=== PATIENT | female | born 1955 | race Caucasian/White ===

== ENCOUNTER 2020-02-22 13:54 | Outpatient (REF) | payer MEDICARE, MEDICAID, SELFPAY ==
--- NOTE | 2020-02-22 16:09 | MHC.AU.P13 ---
Adult Audiological Evaluation Date of Visit: 02/22/20 Reason for Appointment: Audiological evaluation to monitor the status of Ms. Romero's longstanding hearing loss. She notes that her hearing seems to be worsening. She describes experiencing occasional transient ear noise. She denies any significant changes to her medical history but notes her arthritis is getting worse. Previous Hearing Test Results: [facility] [place],12/28/2018- mild to severe mixed hearing loss bilaterally, with the left ear hearing worse than the right. Medical History: Medical History: Dizziness or Unsteadiness, Headache Medical History: History of cleft palate/lip and ear infections Medication List: Reports she is taking a diuretic and the dosage was recently decreased. She regularly takes Zyrtec but her doctor recommended that she reduce how much she takes it in the winter. Notes that she uses eye drops for her glaucoma. Hearing Instrument History- Right Ear: Director Outcomes: [employer] Model: KruxE Serial Number: [id number] Battery Size: 312 Warranty: 07/14/2013 Dispensed By: [facility] Date of Fittin05/07/2011 Hearing Instrument History- Left Ear: Director Outcomes: [employer]ak Model: KruxE Serial Number: [id number] Battery Size: 312 Warranty: 07/14/2013 Dispensed By: [facility] Date of Fittin05/07/2011 Otoscopy: Right Ear: Non-occluding cerumen Left Ear: Unremarkable Tympanometry: Right Ear: Reduced Middle Ear Compliance (Type As) Left Ear: Normal Middle Ear System (Type A) Hearing Evaluation: Transducer(s) Used: Insert Earphones, Bone Conduction Method: Conventional Audiometry Stimuli Used: Pure Tones Right Ear: Description of Hearing: Normal hearing at 250 Hz, sloping to a mild to severe sensorineural hearing loss from 500-8000 Hz. Left Ear: Description of Hearing: Mild sloping to severe sensorineural hearing loss from 250-8000 Hz. Thresholds are 10-15 dBHL worse than the right ear from 250-1000 Hz. Speech Recognition Threshold (SRT): Method Used: Monitored Live Voice Stimuli Used: Spondee Words Right Ear: 40 dBHL Left Ear: 50 dBHL Word Discrimination: Method: Recorded Lists Word Lists Used: NU-6 Right Ear: 88% at 80 dBHL Left Ear: 88% at 80 dBHL Comparison: Compared to the most recent evaluation: Hearing is stable. Recommendations: Recommendations: Audiological re-evaluation in one year. See Hearing Aid Follow-Up note for more information. Diagnosis: Primary Diagnosis: H90.3 Bilateral Sensorineural Hearing Loss Services Performed: Services Performed: Comprehensive Audiological Evaluation (CPT 25618) Tympanometry (CPT 50322) Signature: Provider: Neil Brand, AUBREY-A
== END 2020-02-22 13:55 | disposition home or self-care (01) ==
LOC: HO.SH 13:54
PROVIDERS: Visit Provider Internal Medicine
DX: H90.3 Sensorineural hearing loss, bilateral (principal)
CPT/HCPCS: 92557; 92567; 92593; 99499; V5266

== ENCOUNTER 2020-05-15 13:55 | Outpatient (REF) | payer MEDICARE, MEDICAID, SELFPAY ==
[2020-05-15 15:41] LABS: Glucose Urine UA NEG (NEG); Leukocyte Esterase Urine 1+ (NEG); Nitrite Urine NEG (NEG); Specific Gravity - Urine 1.025 (1.005-1.025); UACC Culture Trigger YES; Urine Blood 1+ (NEG); Urine Ketones 5 MG/DL (NEG); Urine Protein NEG (NEG-TRACE)
[2020-05-15 15:48] LABS: Appearance Urine CLEAR; Color Urine YELLOW
[2020-05-15 17:03] LABS: Bacteria Urine 1+ /LPF; Mucus Urine 2+ /LPF; RBC Urine 0 /HPF (0); Renal Epithelial Cells Urine 2+ /LPF; Squamous Epithelial Cell Urine 2+ /LPF
== END 2020-05-15 13:56 | disposition home or self-care (01) ==
LOC: HO.LAB 13:55
PROVIDERS: PCP Internal Medicine; Visit Provider Internal Medicine
DX: R30.0 Dysuria (principal)
CPT/HCPCS: 81001; 81003; 87086

== ENCOUNTER 2020-05-30 09:11 | Outpatient (REF) | payer MEDICARE, MEDICAID, SELFPAY ==
[2020-05-30 10:03] LABS: MANUAL DIFF FLAG NO
[2020-05-30 10:13] LABS: Basophils Percent Auto 0.5 % (0-2); Eosinophils Absolute Auto 0.1 X10*3/uL (0.0-0.4); Eosinophils Percent Auto 2.1 % (0-4); Hematocrit 37.7 % (37-47); Hemoglobin 12.2 g/dl (12.0-16.0); Imm Gran Abs Auto 0.01 X10*3/uL (0.00-0.03); Imm Gran Pct Auto 0.2 % (0.0-0.4); Lymphocytes Absolute Auto 1.9 X10*3/uL (1.2-4.9); Lymphocytes Percent Auto 30.4 % (20-40); Mean Corpuscular HGB Conc 32.4 g/dl (31.0-35.0); Mean Corpuscular Hemoglobin 28.8 pg (27.0-33.0); Mean Corpuscular Volume 88.9 fL (80-98); Mean Platelet Volume 12.9 fL (9.4-12.3); Monocytes Absolute Auto 0.5 X10*3/uL (0.1-1.2); Monocytes Percent Auto 7.3 % (2-11); Neutrophils Absolute Auto 3.7 X10*3/uL (2.0-8.3); Neutrophils Percent Auto 59.5 % (45-73); Platelet Count 202 X10*3/uL (160-400); Red Blood Count 4.24 X10*6/uL (4.20-5.50); Red Cell Distribution Width 12.8 % (11.0-16.0); White Blood Count 6.3 X10*3/uL (4.8-10.8)
[2020-05-30 10:24] LABS: Alanine Aminotransferase 23 U/L (0-31); Albumin Level 4.1 g/dL (3.5-5.0); Alkaline Phosphatase 108 U/L (39-117); Anion Gap 10 (12-20); Aspartate Amino Transferase 28 U/L (5-31); Bilirubin Total 0.7 mg/dL (0.0-1.0); Blood Urea Nitrogen 19 mg/dL (9-16); Carbon Dioxide 33 mmol/L (22-29); Chloride 100 mmol/L (96-108); Cholesterol 187 mg/dL; Estimated Glomerular Filt Rate 55; Glucose Fasting 91 mg/dL (60-99); HDL Cholesterol 54 mg/dL; LDL Cholesterol Calculated 119 mg/dl; Sodium 139 mmol/L (135-145); Total Protein 6.9 g/dL (6.5-8.0); Triglycerides 71 mg/dL
[2020-05-30 10:47] LABS: Free T4 (Free Thyroxine) 1.08 ng/dL (0.71-1.85); Vitamin D 25-OH Total 28.2 ng/mL (>30)
== END 2020-05-30 09:12 | disposition home or self-care (01) ==
LOC: HO.LAB 09:11
PROVIDERS: PCP Internal Medicine; Visit Provider Internal Medicine
DX: I10 Essential (primary) hypertension (principal); E78.00 Pure hypercholesterolemia, unspecified; K57.90 Diverticulosis of intestine, part unspecified, without perforation or abscess without bleeding
CPT/HCPCS: 36415; 80053; 80061; 82306; 84439; 84443; 85025

== ENCOUNTER 2020-06-07 09:51 | Outpatient (REF) | payer MEDICARE, MEDICAID, SELFPAY ==
--- NOTE | ~2020-06-07 | MM_ITS ---
EXAMINATION: MM SCREENING DIGITAL BREAST TOMOSYNTHESIS, BILATERAL CLINICAL INFORMATION: Screening. Asymptomatic. Prior history reduction mammoplasty 2013. The lifetime risk of breast cancer based on the Tyrer-Cuzick Model is 7%. COMPARISON: Mammography: 01/11/2019, 01/07/2018, 01/02/2017, 06/24/2016, 11/07/2015 TECHNIQUE: Digital breast tomosynthesis is performed in both the craniocaudal and mediolateral oblique views along with computer-aided detection (CAD). Synthesized 2D images are generated from the tomosynthesis. FINDINGS: There are scattered areas of fibroglandular density (ACR BI-RADS breast composition Category b). There is minor scarring consistent with the prior reduction mammoplasty. There is incidental oil cyst with benign rim and coarse calcification again seen upper outer right breast and coarse benign calcification mid upper outer left breast. Some other benign round and rim calcifications are present near the skin. Neither breast shows significant mass or architectural abnormality or abnormal calcifications. The axilla are unremarkable. There are no significant changes from prior studies. MM/MM tomosynthesis screening BI IMPRESSION: No mammographic evidence of malignancy. Benign post surgical changes consistent with the prior history reduction mammoplasty. ASSESSMENT: BI-RADS 2: Benign RECOMMENDATION: Routine annual mammography screening. This patient's information was entered into a reminder system with a target due date for their next mammogram.
== END 2020-06-07 09:52 | disposition home or self-care (01) ==
LOC: HO.MAMMO 09:51
PROVIDERS: PCP Internal Medicine; Visit Provider Internal Medicine
DX: Z12.31 Encounter for screening mammogram for malignant neoplasm of breast (principal)
CPT/HCPCS: 77063; 77067

== ENCOUNTER 2020-09-07 11:06 | Outpatient (REF) | payer MEDICARE, MEDICAID, SELFPAY ==
[2020-09-07 12:32] LABS: Anion Gap 13 (12-20); Blood Urea Nitrogen 18 mg/dL (9-16); Calcium 9.4 mg/dL (8.4-10.2); Carbon Dioxide 30 mmol/L (22-29); Chloride 100 mmol/L (96-108); Estimated Glomerular Filt Rate 50; Glucose Random 87 mg/dL (60-115); Potassium 3.8 mmol/L (3.3-5.1); Sodium 139 mmol/L (135-145)
== END 2020-09-07 11:07 | disposition home or self-care (01) ==
LOC: HO.LAB 11:06
PROVIDERS: PCP Internal Medicine; Visit Provider Internal Medicine
DX: I10 Essential (primary) hypertension (principal)
CPT/HCPCS: 36415; 80048

== ENCOUNTER 2020-10-27 07:44 | Day surgery (SDC) | payer MEDICARE, MEDICAID, SELFPAY ==
[2020-10-23 15:58] VITALS: BMI 35.2
--- NOTE | 2020-10-26 09:59 | HO.ANESPROP2 ---
Documented by User: Clare Cat NP 10/26/20 10:01 HPI - Anesthesia Eval Consult details Narrative: 65yo F for Colonoscopy *Multiple allergies with facial swelling* PMFSH Past Medical History Medical History (Updated 10/27/20 @ 09:34 by Alana Vides MD) Anxiety Arthritis Glaucoma Heartburn Hiatal hernia Hx of cardiac murmur Hx of cleft palate with cleft lip Hx of hypoglycemia IBS (irritable bowel syndrome) Surgical History Surgical History H/O rhinoplasty History of esophagogastroduodenoscopy (EGD) Hx of bilateral breast reduction surgery Hx of cholecystectomy Hx of colonoscopy Social History Social History Alcohol intake: never Patient Tobacco Use Status: Never used Tobacco Use of substances other than those prescribed or required for medical reasons: No Are you DNR?: No Advance Directives: No Advance Directives Information Provided: No Advance Directives on File: No Meds Allergies Allergy/AdvReac Type Severity Reaction Status Date / Time apple [APPLE] Allergy Severe FACIAL Verified 10/23/20 15:51 SWELLING lisinopril [LISINOPRIL] Allergy Severe FACIAL Verified 10/23/20 15:50 SWELLING metoprolol [METOPROLOL] Allergy Severe FACIAL Verified 10/23/20 15:50 SWELLING, facial swelling with any bp med nut - unspecified [NUTS] Allergy Severe Facial Verified 10/23/20 15:51 Swelling pectin [PECTIN] Allergy Severe Facial Verified 10/23/20 15:50 Swelling triamterene [TRIAMTERENE] Allergy Severe FACIAL Verified 10/23/20 15:50 SWELLING DAIRY PRODUCTS Allergy Severe Facial Uncoded 10/23/20 15:50 Swelling Home Medications Medication Instructions Recorded Confirmed Last Taken Type alcaftadine 0.25 % eye drops 1 drp OPHTHALMIC (EYE) DAILY PRN 10/23/20 10/23/20 Unknown History (Lastacaft) cetirizine 10 mg capsule (Zyrtec) 10 mg PO DAILY PRN 10/23/20 10/23/20 Unknown History diphenhydramine HCl 25 mg capsule 25 mg PO Q6H PRN 10/23/20 10/23/20 Unknown History (Benadryl) hydrochlorothiazide 25 mg tablet 1 tab PO DAILY 10/23/20 10/23/20 10/27/20 History latanoprost 0.005 % eye drops 1 drp OPHTHALMIC (EYE) QPM 10/23/20 10/23/20 Unknown History Exam Exam Date and Time: October 26, 2020 0959 Height,Weight and Vital Signs: Height 5 ft Weight 81.647 kg Pertinent Lab Results Pertinent Lab Results: Laboratory Tests 05/30/20 09/07/20 09:40 11:20 WBC 6.3 Hgb 12.2 Hct 37.7 Plt Count 202 Sodium 139 Potassium 3.8 Chloride 100 Carbon Dioxide 30 H BUN 18 H Creatinine 1.11 Assessment and Plan Assessment Anesthesia Assessment: Chart Reviewed Documented by User: Alana Vides MD 10/27/20 09:40 PMFSH Active Problems Active Problems: ??PTSD Past Medical History Medical History (Updated 10/27/20 @ 09:34 by Alana Vides MD) Anxiety Arthritis Glaucoma Heartburn Hiatal hernia Hx of cardiac murmur Hx of cleft palate with cleft lip Hx of hypoglycemia IBS (irritable bowel syndrome) Family History Family history of problems with anesthesia: No Surgical History Surgical History H/O rhinoplasty History of esophagogastroduodenoscopy (EGD) Hx of bilateral breast reduction surgery Hx of cholecystectomy Hx of colonoscopy History of Problems with Anesthesia: Yes (Awareness under anesthesia aged 16) Social History Social History Alcohol intake: never Patient Tobacco Use Status: Never used Tobacco Use of substances other than those prescribed or required for medical reasons: No Are you DNR?: No Advance Directives: No Advance Directives Information Provided: No Advance Directives on File: No Meds Allergies Allergy/AdvReac Type Severity Reaction Status Date / Time apple [APPLE] Allergy Severe FACIAL Verified 10/23/20 15:51 SWELLING lisinopril [LISINOPRIL] Allergy Severe FACIAL Verified 10/23/20 15:50 SWELLING metoprolol [METOPROLOL] Allergy Severe FACIAL Verified 10/23/20 15:50 SWELLING, facial swelling with any bp med nut - unspecified [NUTS] Allergy Severe Facial Verified 10/23/20 15:51 Swelling pectin [PECTIN] Allergy Severe Facial Verified 10/23/20 15:50 Swelling triamterene [TRIAMTERENE] Allergy Severe FACIAL Verified 10/23/20 15:50 SWELLING DAIRY PRODUCTS Allergy Severe Facial Uncoded 10/23/20 15:50 Swelling Home Medications Medication Instructions Recorded Confirmed Last Taken Type alcaftadine 0.25 % eye drops 1 drp OPHTHALMIC (EYE) DAILY PRN 10/23/20 10/23/20 Unknown History (Lastacaft) cetirizine 10 mg capsule (Zyrtec) 10 mg PO DAILY PRN 10/23/20 10/23/20 Unknown History diphenhydramine HCl 25 mg capsule 25 mg PO Q6H PRN 10/23/20 10/23/20 Unknown History (Benadryl) hydrochlorothiazide 25 mg tablet 1 tab PO DAILY 10/23/20 10/23/20 10/27/20 History latanoprost 0.005 % eye drops 1 drp OPHTHALMIC (EYE) QPM 10/23/20 10/23/20 Unknown History Exam Height,Weight and Vital Signs: Height 5 ft Weight 81.647 kg Vital Signs Temp Pulse Resp BP Pulse Ox 10/27/20 08:53 97.3 F 64 18 172/89 H 98 Airway Mallampati Class: II TM Dist: >3cm Neck ROM: Full Heart: RRR ?murmur Lungs: CTAB Assessment and Plan Assessment Anesthesia Assessment: Anesthesia Plan Discussed Final Anesthetic Review Family History of Problems with Anesthesia: No History of Problems with Anesthesia: Yes (Awareness under anesthesia aged 16) NPO: Yes ASA Class: II Final Preanesthetic Review: No Changes in Pt Med Stat, Meds/Allgs Chart Reviewed, Consent Obtained/Reviewed and Anes Risks/Benef Reviewed Patient Risk: Low Procedure Risk: Low Assessment/Block/Sedation in SS: Assess/Block/Sedation-SS Anesthetic Plan Anesthetic Plan: MAC: Disposition: Standard PACU
[2020-10-27 08:53] VITALS: BP 172/89; PULSE 64; RESP 18; TEMP 36.3; O2SAT 98
[2020-10-27] MEDS: Lactated Ringers 1,000 ML 100 ML IVCONT (09:11)
--- NOTE | 2020-10-27 09:59 | P.BOP_ITS ---
Brief Operative Note Date of Service: 10/27/20 Pre-op diagnosis: Screening Post-op diagnosis: other (Colon polyp[) Procedure: Colonoscopy to the cecum and TI with biopsy and removal of polyp Surgeon: Scott Suazo Anesthesia: MAC Was an Shoes Salesperson used for this Procedure?: No Estimated blood loss (mL): 3.0 Pathology: other (A. Transverse colon polyp) Condition: stable Disposition: PACU
[2020-10-27 10:02] VITALS: BP 96/49; PULSE 59; RESP 16; TEMP 36.2; O2SAT 100
[2020-10-27 10:17] VITALS: BP 120/69; PULSE 73; RESP 16; O2SAT 98
--- NOTE | 2020-10-27 11:31 | OP_ITS ---
SURGEON: Scott Suazo MD INDICATIONS: The patient presents for evaluation of colorectal cancer screening. Full consent has been obtained from her for this, including risks of bleeding and perforation. PREOPERATIVE DIAGNOSIS: Colorectal cancer screening. POSTOPERATIVE DIAGNOSIS: PROCEDURE PERFORMED: Colonoscopy to cecum and terminal ileum with biopsy and removal of polyp. ESTIMATED BLOOD LOSS: COMPLICATIONS: ANESTHESIA: Monitored anesthesia care. ASSISTANTS: SPECIMENS: POSTOPERATIVE DIAGNOSES: Colorectal cancer screening, small colon polyp, diverticulosis, and internal hemorrhoids. DESCRIPTION OF PROCEDURE: The patient was placed in the left lateral decubitus position. The digital rectal exam revealed no abnormalities. The Olympus video pediatric colonoscope was entered into the rectum and advanced easily to the cecum. Once in the cecum, I did identify normal-appearing cecal pouch with appendiceal orifice and a normal-appearing ileocecal valve. The terminal ileum was cannulated and appeared normal. Scope was withdrawn back in the colon. The entire cecum and ileocecal valve appeared normal. The scope was slowly withdrawn assessing all mucosal surfaces carefully. Preparation was excellent. In the transverse colon, was a flat approximately 3 or 4 mm polyp, which was biopsied and completely removed with cold biopsy forceps. I did not visualize any other polyps, colitis, nor angiodysplasia. There was a mild amount of sigmoid diverticulosis. In the rectum, scope was retroflexed visualizing internal hemorrhoids, but no other pathology. The rectal mucosa appeared normal. The scope was straightened out and withdrawn from the patient. She tolerated the procedure well and was returned to the recovery area in stable condition. IMPRESSION: 1. Small colon polyp, status post biopsy and removal. 2. Diverticulosis. 3. Internal hemorrhoids. PLAN: The results of the biopsy will be checked. If this is a tubular adenoma, I would recommend a followup colonoscopy in 5 years. If it is only hyperplastic, I would recommend a followup colonoscopy in 10 years. She will otherwise see me on a p.r.n. basis. MD OBDULIO Askew/JOSEPH / [phone]
== END 2020-10-27 11:40 | disposition home or self-care (01) ==
PROVIDERS: PCP Internal Medicine; Visit Provider Internal Medicine
PROC: 0DJD8ZZ Inspection of Lower Intestinal Tract, Via Natural or Artificial Opening Endoscopic (ICD-10-PCS; CPT 45378; principal; 2020-10-27 09:00)
DX: Z12.11 Encounter for screening for malignant neoplasm of colon (principal); D12.3 Benign neoplasm of transverse colon; K57.30 Diverticulosis of large intestine without perforation or abscess without bleeding; K64.8 Other hemorrhoids
CPT/HCPCS: 45380; 88305

== ENCOUNTER 2020-12-08 16:00 | Emergency (ER) | payer MEDICARE, MEDICAID, SELFPAY ==
[2020-12-08 16:11] VITALS: BP 160/90; PULSE 98; O2SAT 98
[2020-12-08 16:42] VITALS: BP 129/99; PULSE 71; RESP 18; TEMP 36.7; O2SAT 96; BMI 33.0
--- NOTE | 2020-12-08 19:26 | ED.ALLEREA ---
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 She states she had cranberry juice or early this morning, and she immediately began to have lip swelling, mainly to the left hand side of the lips. She states that she took 50 mg of Benadryl at 10:00. And then she took 50 mg of Benadryl here at 17:00. She states that this happens to her frequently, however it is not getting better after Benadryl, which is not normal for her. She also mentions that she is had to have epinephrine for this before, so she was worried. She denies shortness of breath, trouble breathing, headache, nausea, vomiting, chest pain, fevers, chills, weakness. She has never had to be intubated for her allergic reactions MD complaint: allergic reaction Onset (ago): hour(s) (9) Exposure: other (Possibly cranberry juice) Known history of allergy to: Apples, and apple juice. Symptoms: lip swelling Severity: moderate Treatment prior to arrival: benadryl (50 mg this morning, 50 mg at 17:00.) Previous Allergic Reaction History: angioedema Related Data Home Medications Medication Instructions Recorded Confirmed alcaftadine 0.25 % eye drops 1 drp OPHTHALMIC (EYE) DAILY PRN 10/23/20 10/23/20 (Lastacaft) cetirizine 10 mg capsule (Zyrtec) 10 mg PO DAILY PRN 10/23/20 10/23/20 diphenhydramine HCl 25 mg capsule 25 mg PO Q6H PRN 10/23/20 10/23/20 (Benadryl) hydrochlorothiazide 25 mg tablet 1 tab PO DAILY 10/23/20 10/23/20 latanoprost 0.005 % eye drops 1 drp OPHTHALMIC (EYE) QPM 10/23/20 10/23/20 Previous Rx's Medication Instructions Recorded diphenhydramine HCl 25 mg tablet 50 mg PO TID PRN #10 tab 10/15/21 (Benadryl Allergy) famotidine 20 mg tablet (Pepcid) 20 mg PO BID #10 tab 12/08/20 prednisone 20 mg tablet 40 mg PO DAILY 5 Days #10 tab 12/08/20 Allergies Allergy/AdvReac Type Severity Reaction Status Date / Time apple [APPLE] Allergy Severe FACIAL Verified 12/08/20 16:42 SWELLING lisinopril [LISINOPRIL] Allergy Severe FACIAL Verified 12/08/20 16:42 SWELLING metoprolol [METOPROLOL] Allergy Severe FACIAL Verified 12/08/20 16:42 SWELLING, facial swelling with any bp med nut - unspecified [NUTS] Allergy Severe Facial Verified 12/08/20 16:42 Swelling pectin [PECTIN] Allergy Severe Facial Verified 12/08/20 16:42 Swelling triamterene [TRIAMTERENE] Allergy Severe FACIAL Verified 12/08/20 16:42 SWELLING DAIRY PRODUCTS Allergy Severe Facial Uncoded 10/23/20 15:50 Swelling Review of Systems Review of Systems: Constitutional : No Weight loss, No Fever, No Chills, No Night Sweats, No Fatigue, No Malaise ENT/Mouth : No Hearing loss, No Ear Pain, No Nasal Congestion, No Sinus Pain, No Hoarseness, No sore throat,+ lower left sided lip swelling, No Swallowing Difficulty Eyes: No Eye Pain, No Swelling Cardiovascular : No Chest Pain, No SOB, No Dyspnea on Exertion, No Orthopnea, No Edema, No Palpitations Respiratory : No Cough, No Sputum, No Wheezing, No Smoke Exposure, No Dyspnea Gastrointestinal : No Nausea, No Vomiting, No Diarrhea, No Constipation, No abdominal Pain, No Hematochezia, No Melena Genitourinary : no irregular bleeding, No Dysuria, No Urinary Frequency, No Hematuria, No Urinary Incontinence, No Urgency, No Flank Pain, No Urinary Flow Changes, No Hesitancy Musculoskeletal : No joint pain, No Myalgias, No Joint Swelling Skin : No Skin Lesions, No rash Neuro : No Weakness, No Numbness, No Dizziness, No Headache Yes all other systems are reviewed and are negative [facility] Past Medical History Attestation statement: The following information was validated with the patient. Medical History Anxiety Arthritis Glaucoma Heartburn Hiatal hernia Hx of cardiac murmur Hx of cleft palate with cleft lip Hx of hypoglycemia IBS (irritable bowel syndrome) Surgical History H/O rhinoplasty History of esophagogastroduodenoscopy (EGD) Hx of bilateral breast reduction surgery Hx of cholecystectomy Hx of colonoscopy Social History Social History Alcohol intake: never Patient Tobacco Use Status: Never used Tobacco Advance Directives: No Advance Directives Information Provided: Yes Patient : No Physical Exam Vital Signs: Vital Signs: Last Vital Signs Temp 98.1 F 12/08/20 16:42 Pulse 71 12/08/20 16:42 Resp 18 12/08/20 16:42 BP 129/99 H 12/08/20 16:42 Pulse Ox 96 12/08/20 16:42 Body Mass Index 33.0 vital signs have been reviewed as normal and appeared to be correct. Blood pressure normal. Heart rate normal. Respiration rate normal. Temperature normal. Oxygen saturation normal. Appearance: Alert. Oriented X3. No acute distress. Head: Normal external exam. Normocephalic. Eyes: PERRLA. EOMI. Conjunctiva and sclera normal. Eyelids normal. ENT: Pharynx normal. Uvula midline. Moist mucous membranes. No trismus noted. No drooling noted. No muffled voice noted. + swelling to left lower lip although tolerating secretions well. No stridor is noted. Neck: Normal inspection. Neck supple. FROM. No adenopathy. No meningeal signs. CVS: Normal heart rate and rhythm. Heart sound normal. No murmurs noted. Pulses normal throughout. Respiratory: No respiratory distress. Painless inspiration. Breath sounds normal. No wheezes/rales/rhonchi/ stridor noted. Chest nontender. No accessory muscle usage noted or decreased air movement noted. Abdomen: Soft and nontender. Nondistended. No guarding. No rigidity. Bowel sounds normal in all 4 quadrants. No distention noted. No organomegaly noted. No visible injury noted. No rebound tenderness. Negative Rovsing sign. Negative obturator's sign. Negative psoas sign. Negative Sheppard sign. Back: Full range of motion noted. Skin: Skin warm and dry. Normal skin color. Normal skin turgor. No rashes/lesions/lacerations noted. Extremities: Extremities exhibit normal range of motion. Extremities nontender. Neuro: Oriented X 3. No motor deficit. No sensory deficit. Reflexes normal. Normal steady gait. Course Course Course Narrative: 19:30pm 65-year-old female pmhx for cleft palate, hypertension and allergic to apple juice presents to the emergency department with an allergic reaction after drinking cranberry juice this morning. She took 50 mg of Benadryl this morning, and 50 mg of Benadryl at 17:00, with little to no relief. She has previous history of angioedema, requiring epinephrine. She has never required intubation. Upon physical examination patient is comfortably resting on the stretcher, able to speak in full sentences, controlling secretions well. Vital signs are stable, 96% on room air, not tachypneic, pulse of 71. Slightly hypertensive 129/99. Lungs are clear to auscultation no wheezing no adventitious lung sounds, no stridor, no accessory muscle use. There is swelling noted to the lower left-side of her lip. There is no facial swelling noted. These physical exam findings are not consistent with anaphylaxis. At this time the plan is to put patient on a insurance legal assistant, administered 25 mg of Benadryl, Solu-Medrol, Mag. And evaluate the patient promptly to see if she has improved. If not, will administer epinephrine. Reevaluation(s) Reevaluation #1: Upon re-evaluation swelling and is localized to the left lower lip. Patient is not nauseous, not vomiting. Vital signs are stable saturating well on room air. She is controlling secretions, speaking in full sentences in no acute respiratory distress. She is safe for discharge home. She has been educated to no longer try drinking cranberry juice, apple juice. She should follow up with her primary care provider, and think about getting allergy tested. She is safe for discharge home with PCP follow-up Time: 21:19 Critical Care Time Critical Care Time Critical Care Time: Yes Total Critical Care Time: 60 Attestation: I personally attest to this time spent taking care of the patient Discharge Plan Discharge Clinical Impression: Allergic reaction Qualifiers: Encounter type: initial encounter Qualified Code(s): T78.40XA - Allergy, unspecified, initial encounter Angioedema Qualifiers: Encounter type: initial encounter Qualified Code(s): T78.3XXA - Angioneurotic edema, initial encounter Patient Disposition: Home, Self-Care Instructions: Food Allergy (ED), Angioedema (ED), General Allergic Reaction (ED) Additional Instructions: Follow-up with your primary care Do not drink cranberry juice or apple juice Return to the emergency department new or worsening symptoms. Prescriptions: New famotidine [Pepcid] 20 mg tablet 20 mg PO BID Qty: 10 RF: 0 diphenhydramine HCl [Benadryl Allergy] 25 mg tablet 50 mg PO TID PRN (Reason: allergic reaction) Qty: 10 RF: 0 prednisone 20 mg tablet 40 mg PO DAILY 5 Days Qty: 10 RF: 0 No Action latanoprost 0.005 % drops 1 drp ophthalmic (eye) QPM RF: 0 diphenhydramine HCl [Benadryl] 25 mg Capsule 25 mg PO Q6H PRN (Reason: Allergy Symptoms) RF: 0 hydrochlorothiazide 25 mg tablet 1 tab PO DAILY RF: 0 Zyrtec 10 mg Capsule 10 mg PO DAILY PRN (Reason: Allergy Symptoms) RF: 0 Lastacaft 0.25 % Drops 1 drp OPHTHALMIC (EYE) DAILY PRN (Reason: Allergy Symptoms) RF: 0 Referrals: Physician,Unknown J [Primary Care Provider] - 2 days Print Language: Tamazight
[2020-12-08] MEDS: Magnesium Sulfate/H2O 2 GM/50 ML PIGGYBACK IV (19:43)
[2020-12-08] MEDS: Famotidine/PF 20 MG/2 ML VIAL IVPUSH (19:44)
[2020-12-08] MEDS: methylPREDNISolone Sod Succ 125 MG/2 ML VIAL IVPUSH (19:44)
[2020-12-08] MEDS: diphenhydrAMINE HCL 50 MG/ML VIAL 25 MG IVPUSH (19:44)
== END 2020-12-08 21:43 | disposition home or self-care (01) ==
PROVIDERS: Emergency Provider Emergency Medicine
DX: L23.6 Allergic contact dermatitis due to food in contact with the skin (principal); L27.2 Dermatitis due to ingested food; R13.10 Dysphagia, unspecified; T78.3XXA Angioneurotic edema, initial encounter; T78.1XXA Other adverse food reactions, not elsewhere classified, initial encounter; Z79.899 Other long term (current) drug therapy
CPT/HCPCS: 96365; 96366; 96375; 99283; 99291; J1200; J2930; J3475

== ENCOUNTER 2021-01-02 12:12 | Outpatient (REF) | payer MEDICARE, MEDICAID, SELFPAY ==
[2021-01-02 13:50] LABS: Anion Gap 14 (12-20); Blood Urea Nitrogen 20 mg/dL (9-16); Calcium 9.1 mg/dL (8.4-10.2); Carbon Dioxide 29 mmol/L (22-29); Chloride 99 mmol/L (96-108); Estimated Glomerular Filt Rate 53; Glucose Random 84 mg/dL (60-115); Potassium 3.7 mmol/L (3.3-5.1); Sodium 138 mmol/L (135-145)
[2021-01-02 14:13] LABS: Vitamin D 25-OH Total 31.4 ng/mL (>30)
== END 2021-01-02 12:13 | disposition home or self-care (01) ==
LOC: HO.LAB 12:12
PROVIDERS: PCP Internal Medicine; Visit Provider Internal Medicine
DX: I12.9 Hypertensive chronic kidney disease with stage 1 through stage 4 chronic kidney disease, or unspecified chronic kidney disease (principal); N18.9 Chronic kidney disease, unspecified; E55.9 Vitamin D deficiency, unspecified
CPT/HCPCS: 36415; 80048; 82306

== ENCOUNTER 2021-05-31 11:59 | Outpatient (REF) | payer MEDICARE, MEDICAID, SELFPAY ==
[2021-05-31 12:33] LABS: MANUAL DIFF FLAG NO
[2021-05-31 12:53] LABS: Basophils Percent Auto 0.5 % (0-2); Eosinophils Absolute Auto 0.2 X10*3/uL (0.0-0.4); Eosinophils Percent Auto 2.9 % (0-4); Hematocrit 36.6 % (37.0-47.0); Hemoglobin 12.3 g/dl (12.0-16.0); Imm Gran Abs Auto 0.01 X10*3/uL (0.00-0.03); Imm Gran Pct Auto 0.2 % (0.0-0.4); Lymphocytes Absolute Auto 1.7 X10*3/uL (1.2-4.9); Lymphocytes Percent Auto 26.2 % (20-40); Mean Corpuscular HGB Conc 33.6 g/dl (31.0-35.0); Mean Corpuscular Hemoglobin 30.3 pg (27.0-33.0); Mean Corpuscular Volume 90.1 fL (80.0-98.0); Mean Platelet Volume 12.6 fL (9.4-12.3); Monocytes Absolute Auto 0.5 X10*3/uL (0.1-1.2); Monocytes Percent Auto 7.4 % (2-11); Neutrophils Absolute Auto 4.1 x10*3/uL (2.0-8.3); Neutrophils Percent Auto 62.8 % (45-73); Platelet Count 202 X10*3/uL (160-400); Red Blood Count 4.06 X10*6/uL (4.20-5.50); Red Cell Distribution Width 12.8 % (11.0-16.0); White Blood Count 6.5 X10*3/uL (4.8-10.8)
[2021-05-31 13:17] LABS: Alanine Aminotransferase 53 U/L (0-31); Alkaline Phosphatase 145 U/L (39-117); Anion Gap 11 (12-20); Aspartate Amino Transferase 43 U/L (5-31); Bilirubin Total 0.6 mg/dL (0.0-1.0); Blood Urea Nitrogen 16 mg/dL (9-16); Calcium 9.3 mg/dL (8.4-10.2); Carbon Dioxide 29 mmol/L (22-29); Chloride 100 mmol/L (96-108); Estimated Glomerular Filt Rate 60; Glucose Random 88 mg/dL (60-115); Potassium 4.3 mmol/L (3.3-5.1); Sodium 136 mmol/L (135-145); Total Protein 6.7 g/dL (6.5-8.0)
[2021-05-31 13:39] LABS: Vitamin D 25-OH Total 34.4 ng/mL (>30)
== END 2021-05-31 12:00 | disposition home or self-care (01) ==
LOC: HO.LAB 11:59
PROVIDERS: PCP Internal Medicine; Visit Provider Internal Medicine
DX: E55.9 Vitamin D deficiency, unspecified (principal); I12.9 Hypertensive chronic kidney disease with stage 1 through stage 4 chronic kidney disease, or unspecified chronic kidney disease; N18.9 Chronic kidney disease, unspecified
CPT/HCPCS: 36415; 80053; 82306; 85025

== ENCOUNTER 2021-06-08 10:13 | Outpatient (REF) | payer MEDICARE, MEDICAID, SELFPAY ==
--- NOTE | ~2021-06-08 | MM_ITS ---
EXAMINATION: MM SCREENING DIGITAL BREAST TOMOSYNTHESIS, BILATERAL CLINICAL INFORMATION: Screening. Asymptomatic. Reduction mammoplasty, 2013. The lifetime risk of breast cancer based on the Tyrer-Cuzick Model is 8%. COMPARISON: Mammography: 06/07/2020, 01/11/2019, 01/07/2018 TECHNIQUE: Digital breast tomosynthesis is performed in both the craniocaudal and mediolateral oblique views along with computer-aided detection (CAD). Synthesized 2D images are generated from the tomosynthesis. Additional right CC view is provided. FINDINGS: There are scattered areas of fibroglandular density (ACR BI-RADS breast composition Category b). Breast tissue composition borders on predominantly fatty. There is minor background scarring from the reduction mammoplasty. Neither breast shows developing density or interval mass or abnormal calcifications. There is incidental oil cyst again seen anterior upper outer right breast. The axilla are unremarkable. MM/MM tomosynthesis screening BI IMPRESSION: No mammographic evidence of malignancy. ASSESSMENT: BI-RADS 2: Benign RECOMMENDATION: Routine annual mammography screening. This patient's information was entered into a reminder system with a target due date for their next mammogram.
== END 2021-06-08 10:14 | disposition home or self-care (01) ==
LOC: HO.MAMMO 10:13
PROVIDERS: Visit Provider Internal Medicine
DX: Z12.31 Encounter for screening mammogram for malignant neoplasm of breast (principal)
CPT/HCPCS: 77063; 77067

== ENCOUNTER 2021-06-28 10:45 | Outpatient (REF) | payer MEDICARE, MEDICAID, SELFPAY ==
--- NOTE | 2021-06-28 16:31 | MHC.AU.MED ---
Medical Clearance for Hearing Instrumentation Date: 06/28/21 Patient Name: Ludivina Romero Date of : 1955 Primary Care Provider: Referring Provider: Levi Manning MD We have seen your patient on 06/28/21 and have determined that they are a candidate for amplification (See accompanying report). Specifically, they would benefit from: Hearing aid use in both ears There is a statute that addresses Medical Evaluation Requirements prior to fitting a patient with a hearing aid. According to [place] statute 265 CMR:6.03(1), (a) General. Except as provided in 265 CMR 6.03(1)(b), a hearing stenographer shall not sell a hearing aid unless the prospective user has presented to the hearing stenographer a written statement signed by a licensed physician that states that the patient's hearing loss has been medically evaluated and the patient may be considered a candidate for a hearing aid. The medical evaluation must have taken place within the preceding six months. Please note: Due to the [place] Statute referenced above, we cannot accept a signature other than that of a licensed physician. BOOKSTORE MANAGER and PA signatures cannot be accepted. I am in agreement with the above recommendation. There is no medical contraindication for hearing instrumentation. Physician Signature Date Physician Name (Printed)
--- NOTE | 2021-07-02 09:56 | MHC.AU.AHA ---
Adult Audiological Evaluation Date of Visit: 06/28/[address] Reporter Used: Not Applicable Reason for Appointment: Audiologic re-evaluation due to question of change in hearing ability. Ludivina has a long-standing history of bilateral hearing loss and reports she has not been wearing the hearing aids regularly since she has difficulty wearing with the face masks and she is afraid of losing the aids. Previous Hearing Test Results: 02/22/2020 [facility] Asymmetric borderline normal to mild sensorineural hearing loss at 250-1000 Hz with the left ear being poorer than the right, sloping to a severe high frequency sensorineural hearing loss bilaterally. Speech understanding at 80 dB HL was 88% for both ears. Medical History: Medical History: Dizziness or Unsteadiness, Headache, High Blood Pressure, History of cleft palate/lip and ear infections Allergies: Lisinopril, Metoprolol, Triamterene, Apple, Nuts, Dairy Medication List: Famotidine, Hydrochloriazide, Prednisone, Alcaftadine and Latanoprost eye drops. Zyrtec and Benedryl as needed Hearing Instrument History- Right Ear: Inspector Of Dredging: Seedfuse Model: BevalleyE Serial Number: [id number] Battery Size: 312 Repair Warranty: Dispensed By: [facility] Date of Fittin05/07/2011 Hearing Instrument History- Left Ear: Inspector Of Dredging: Seedfuse Model: BevalleyE Serial Number: [id number] Battery Size: 312 Warranty: Dispensed By: [facility] Date of Fittin05/07/2011 Otoscopy: Right Ear: Unremarkable Left Ear: Unremarkable Tympanometry: Tympanometry performed due to: To assess integrity of the middle ear system Right Ear: Normal Middle Ear System (Type A) Left Ear: Normal Middle Ear System (Type A) Hearing Evaluation: Transducer(s) Used: Insert Earphones Bone Conduction Method: Conventional Audiometry Stimuli Used: Pure Tones Right Ear: Description of Hearing: Borderline normal threshold at 250 Hz, sloping to a severe sensorineural hearing loss 500-8000 Hz Left Ear: Description of Hearing: Mild sloping to severe sensorineural hearing loss. Speech Recognition Threshold (SRT): Method Used: Monitored Live Voice Stimuli Used: Spondee Words Right Ear: 35 dB HL Left Ear: 45 dB HL Word Discrimination: Method: Recorded Lists Word Lists Used: NU-6 Right Ear: 72% at 75 dB HL Left Ear: 48% at 80 dB HL 68% at 85 dB HL Most Comfortable Level (MCL): Right Ear: 75 dB HL Left Ear: 80 dB HL Comparison: Compared to most recent evaluation: Overall hearing thresholds are stable for both ears; however, speech discrimination ability has decreased significantly for both ears. Interpretation of Results: The decreased speech understanding ability is likely related to the lack of auditory stimulation since Ludivina has not been using her hearing aids. New binaural ej-hol-rjqwn hearing aids are recommended to help reduce the chance the hearing aids will become tangled with her glasses and face mask. Recommendations: Trial with new custom [id number] hearing aids is recommended. Medical clearance from a physician is required before fitting. Hearing Aid Fitting will be scheduled when all materials arrive. Audiological re-evaluation in one year. Will send a reminder card. Diagnosis: Primary Diagnosis: H90.3 Bilateral Sensorineural Hearing Loss Services Performed: Comprehensive Audiological Evaluation (CPT 66442) Tympanometry (CPT 38348) Signature: Provider: Neil Burrell, [facility]
--- NOTE | 2021-07-04 13:54 | MHC.AU.HAS ---
Hearing Aid Evaluation Date of Visit: 06/28/21 Historical Information: Description of Hearing: Borderline normal/mild, sloping to severe sensorineural hearing loss, left ear poorer than right Current personal amplification information, if applicable: Binaural 2011 Phonak [place] micro BTE Summary: Patient's speech discrimination has significant decreased as patient is not wearing hearing aids because of difficulties with aids falling out of ears when removing face masks. Current aids are 10 years old and patient needs in-the-ear custom hearing aids to help patient wear aids consistently Hearing Aid Prescription: Based on the individual?s shared listening needs, communication environments, dexterity, desire for connectivity, and personal preferences, the following prescription for amplification has been made: Right ear: Coiler Operator:Cerapedics Model: Intellecapv AI 1600 ITC-312 Battery Size: 312 Color: [place] Left ear:Left ear prescription to be same as Right Hearing Aid above: Coiler Operator: Cerapedics Model: Evolv AI 1600 itc-312 Battery Size: 312 Color: [place] Action Taken/Action Needed: Earmold Impressions Taken Medical Clearance to be requested from PCP/ENT Will order aids when medical clearance is received Primary Diagnosis: H90.3 Bilateral Sensorineural Hearing Loss Signature:Provider: Neil Burrell, CCC-A
== END 2021-06-28 10:46 | disposition home or self-care (01) ==
LOC: HO.SH 10:45
PROVIDERS: Visit Provider Internal Medicine
DX: Z01.118 Encounter for examination of ears and hearing with other abnormal findings (principal); H90.3 Sensorineural hearing loss, bilateral
CPT/HCPCS: 92557; 92567; 92591; V5275

== ENCOUNTER 2021-07-18 11:32 | Outpatient (REF) | payer MEDICARE, MEDICAID, SELFPAY ==
[2021-07-18 13:41] LABS: Alanine Aminotransferase 22 U/L (0-31); Albumin Level 4.1 g/dL (3.5-5.0); Alkaline Phosphatase 112 U/L (39-117); Anion Gap 12 (12-20); Aspartate Amino Transferase 26 U/L (5-31); Bilirubin Total 0.5 mg/dL (0.0-1.0); Blood Urea Nitrogen 18 mg/dL (9-16); Calcium 9.7 mg/dL (8.4-10.2); Carbon Dioxide 29 mmol/L (22-29); Chloride 97 mmol/L (96-108); Estimated Glomerular Filt Rate 48; Glucose Random 113 mg/dL (60-115); Potassium 3.2 mmol/L (3.3-5.1); Sodium 135 mmol/L (135-145); Total Protein 7.1 g/dL (6.5-8.0)
== END 2021-07-18 11:33 | disposition home or self-care (01) ==
LOC: HO.10HDL 11:32
PROVIDERS: Visit Provider Internal Medicine
DX: I10 Essential (primary) hypertension (principal); R79.89 Other specified abnormal findings of blood chemistry
CPT/HCPCS: 36415; 80053

== ENCOUNTER 2021-08-09 10:14 | Outpatient (REF) | payer MEDICARE, MEDICAID, SELFPAY | END 2021-08-09 10:15 | disposition home or self-care (01) | LOC: HO.HAP 10:14 | PROVIDERS: Visit Provider Internal Medicine | DX: Z46.1 Encounter for fitting and adjustment of hearing aid (principal); H90.3 Sensorineural hearing loss, bilateral | CPT/HCPCS: V5011; V5020; V5160; V5259; V5266 ==

== ENCOUNTER 2021-08-24 11:30 | Outpatient (REF) | payer MEDICARE, MEDICAID, SELFPAY | END 2021-08-24 11:31 | disposition home or self-care (01) | LOC: HO.HAP 11:30 | PROVIDERS: Visit Provider Internal Medicine | DX: Z13.89 Encounter for screening for other disorder (principal) ==

== ENCOUNTER 2021-10-18 12:49 | Outpatient (REF) | payer MEDICARE, MEDICAID, SELFPAY ==
[2021-10-18 13:49] LABS: MANUAL DIFF FLAG NO
[2021-10-18 13:53] LABS: Basophils Percent Auto 0.5 % (0-2); Eosinophils Absolute Auto 0.3 X10*3/uL (0.0-0.4); Eosinophils Percent Auto 3.7 % (0-4); Hematocrit 36.4 % (37.0-47.0); Hemoglobin 12.3 g/dl (12.0-16.0); Imm Gran Abs Auto 0.02 X10*3/uL (0.00-0.03); Imm Gran Pct Auto 0.3 % (0.0-0.4); Lymphocytes Absolute Auto 2.2 X10*3/uL (1.2-4.9); Mean Corpuscular HGB Conc 33.8 g/dl (31.0-35.0); Mean Corpuscular Volume 88.8 fL (80.0-98.0); Mean Platelet Volume 12.6 fL (9.4-12.3); Monocytes Absolute Auto 0.6 X10*3/uL (0.1-1.2); Monocytes Percent Auto 7.4 % (2-11); Neutrophils Absolute Auto 4.4 x10*3/uL (2.0-8.3); Neutrophils Percent Auto 59.1 % (45-73); Platelet Count 213 X10*3/uL (160-400); White Blood Count 7.5 X10*3/uL (4.8-10.8)
[2021-10-18 14:15] LABS: Alanine Aminotransferase 29 U/L (0-31); Alkaline Phosphatase 122 U/L (39-117); Anion Gap 12 (12-20); Aspartate Amino Transferase 33 U/L (5-31); Bilirubin Total 0.4 mg/dL (0.0-1.0); Blood Urea Nitrogen 18 mg/dL (9-16); Calcium 9.5 mg/dL (8.4-10.2); Carbon Dioxide 32 mmol/L (22-29); Chloride 97 mmol/L (96-108); Estimated Glomerular Filt Rate 47; Glucose Fasting 91 mg/dL (60-99); Potassium 3.6 mmol/L (3.3-5.1); Sodium 137 mmol/L (135-145); Total Protein 6.9 g/dL (6.5-8.0)
== END 2021-10-18 12:50 | disposition home or self-care (01) ==
LOC: HO.10HDL 12:49
PROVIDERS: Visit Provider Internal Medicine
DX: I12.9 Hypertensive chronic kidney disease with stage 1 through stage 4 chronic kidney disease, or unspecified chronic kidney disease (principal); N18.9 Chronic kidney disease, unspecified; K21.9 Gastro-esophageal reflux disease without esophagitis
CPT/HCPCS: 36415; 80053; 85025

== ENCOUNTER 2021-11-21 03:24 | Emergency (ER) | payer MEDICARE, MEDICAID, SELFPAY ==
[2021-11-21 03:33] VITALS: BP 146/101; PULSE 65; RESP 19; TEMP 37.1; O2SAT 98; BMI 33.6
[2021-11-21 05:46] VITALS: BP 162/85; PULSE 66; RESP 17; TEMP 36; O2SAT 98
--- NOTE | 2021-11-21 06:37 | PC.NURSE ---
Patient with unchanged lower lip/jaw swelling since presenting to the ED over three hours ago. Cut to inner lower lip also unchanged. She is managing secretions, breathing with ease, and states she feels overall better. No throat swelling or redness noted at this time. O2 saturations consistently >95% on room air. Patient states I think I got some vinegar in the cut and that's why it became swollen. Voice unchanged (baseline for patient being partly deaf per patient).
--- NOTE | 2021-11-21 08:08 | ED_ITS ---
HPI - Dental/Oral General Chief complaint: Dental/Oral Stated complaint: allergic rx Time Seen by Provider: 11/21/21 08:06 Source: patient Mode of arrival: ambulatory Limitations: no limitations History of Present Illness HPI Narrative: 66 yo female with hx of frequent food allergies resulting in lip swelling presents with lower lip swelling starting after dinner last nigh. States it started after eating a tuna sandwhich took 25mg benadryl prior to bed. Another 50mg benadryl around 3/4am as she thought her lip was worsening but now while waiting in our triage her lip is improving. No breathing issues and otherwise feels fine. Onset (ago): hour(s) (12) Duration: other (improving) Severity: mild Relieving factors: other (benadryl) Exacerbating factors: other (after biting lip) Context: other (hx of allergic reactions) Associated symptoms: other (lip swelling) Treatment prior to arrival: other (benadryl) Related Data Home Medications Medication Instructions Recorded Confirmed alcaftadine 0.25 % eye drops 1 drp ophthalmic (eye) DAILY PRN 10/23/20 10/23/20 (Lastacaft) Allergy Symptoms cetirizine 10 mg capsule (Zyrtec) 10 mg PO DAILY PRN Allergy Symptoms 10/23/20 10/23/20 diphenhydramine HCl 25 mg capsule 25 mg PO Q6H PRN Allergy Symptoms 10/23/20 10/23/20 (Benadryl) hydrochlorothiazide 25 mg tablet 1 tab PO DAILY 10/23/20 10/23/20 latanoprost 0.005 % eye drops 1 drp ophthalmic (eye) QPM 10/23/20 10/23/20 Previous Rx's Medication Instructions Recorded diphenhydramine HCl 25 mg tablet 50 mg PO TID PRN allergic reaction 12/08/20 (Benadryl Allergy) #10 tabs famotidine 20 mg tablet (Pepcid) 20 mg PO BID rash #10 tabs 12/08/20 prednisone 20 mg tablet 40 mg PO DAILY rash 5 days #10 tabs 12/08/20 Allergies Allergy/AdvReac Type Severity Reaction Status Date / Time apple [APPLE] Allergy Severe FACIAL Verified 12/08/20 16:42 SWELLING lisinopril [LISINOPRIL] Allergy Severe FACIAL Verified 12/08/20 16:42 SWELLING metoprolol [METOPROLOL] Allergy Severe FACIAL Verified 12/08/20 16:42 SWELLING, facial swelling with any bp med nut - unspecified [NUTS] Allergy Severe Facial Verified 12/08/20 16:42 Swelling pectin [PECTIN] Allergy Severe Facial Verified 12/08/20 16:42 Swelling triamterene [TRIAMTERENE] Allergy Severe FACIAL Verified 12/08/20 16:42 SWELLING DAIRY PRODUCTS Allergy Severe Facial Uncoded 10/23/20 15:50 Swelling Review of Systems Review of Systems: Constitutional : No Fever, No Chills ENT/Mouth : positive oral swelling, No Hoarseness, No Swallowing Difficulty Eyes: No Eye Pain, No Swelling, No Redness Cardiovascular : No Chest Pain, No SOB Respiratory : No Cough, No Sputum, No Wheezing, No Smoke Exposure, No Dyspnea Gastrointestinal : No Nausea, No Vomiting, No Diarrhea, No abdominal Pain Genitourinary : No Dysuria, No Urinary Frequency, No Hematuria Musculoskeletal : No joint pain, No Myalgias, No Joint Swelling Skin : No Skin Lesions, no rash Neuro : No Weakness, No Numbness, No Headache Psych : No Anxiety/Panic, No Depression Heme/Lymph: No Bruising, No Lymphadenopathy Endocrine : No Polyuria, No Polydipsia All other systems reviewed and are negative [facility] Past Medical History Attestation statement: The following information was validated with the patient. Medical History Anxiety Arthritis Glaucoma Heartburn Hiatal hernia Hx of cardiac murmur Hx of cleft palate with cleft lip Hx of hypoglycemia IBS (irritable bowel syndrome) Surgical History H/O rhinoplasty History of esophagogastroduodenoscopy (EGD) Hx of bilateral breast reduction surgery Hx of cholecystectomy Hx of colonoscopy Social History Social History Alcohol intake: never Patient Tobacco Use Status: Never used Tobacco Advance Directives: No Advance Directives Information Provided: Yes Physical Exam Vital Signs: Vital Signs: Last Vital Signs Temp 96.8 F 11/21/21 05:46 Pulse 66 11/21/21 05:46 Resp 17 11/21/21 05:46 BP 162/85 H 11/21/21 05:46 Pulse Ox 98 11/21/21 05:46 O2 Del Method 11/21/21 05:46 BMI result Body Mass Index 33.6 Appearance: Alert. Oriented X3. No acute distress. Eyes: Pupils equal, round and reactive to light. ENT: Pharynx normal. no intra oral swelling has moderate swelling to lower lip diffusely and contusion but no puncture to left lower lip Neck: Normal inspection. Neck supple. CVS: Normal heart rate and rhythm. Pulses normal. Respiratory: No respiratory distress. Breath sounds normal. Abdomen: Soft and nontender. Skin: Skin warm and dry. Normal skin color. Normal skin turgor. Extremities: No lower extremity edema. No calf ttp Neuro: Oriented X 3. No motor deficit. No sensory deficit. Course Course Course Narrative: feels better stable for DC MDM - Dental/Oral MDM Narrative Medical decision making narrative: 66 yo female with hx of prior allergic reactons improving lower lip swelling - no resp difficulties after treating her symptoms at home with benadryl. She is not on SNEHAL-i. At this time will give dexamethasone and observe. Discharge Plan Discharge Clinical Impression: Allergic angioedema Qualifiers: Encounter type: initial encounter Qualified Code(s): T78.3XXA - Angioneurotic edema, initial encounter Patient Disposition: Home, Self-Care Instructions: Angioedema (ED) Additional Instructions: return to ED for any worsening symptoms or concerns can take benadryl 25 to 50mg next dose 10am then next dose at 4pm if needed for allergy symptoms. Prescriptions: No Action latanoprost 0.005 % drops 1 drp ophthalmic (eye) QPM diphenhydramine HCl [Benadryl] 25 mg Capsule 25 mg PO Q6H PRN (Reason: Allergy Symptoms) hydrochlorothiazide 25 mg tablet 1 tab PO DAILY Zyrtec 10 mg Capsule 10 mg PO DAILY PRN (Reason: Allergy Symptoms) Lastacaft 0.25 % Drops 1 drp OPHTHALMIC (EYE) DAILY PRN (Reason: Allergy Symptoms) famotidine [Pepcid] 20 mg tablet 20 mg PO BID Qty: 10 0RF diphenhydramine HCl [Benadryl Allergy] 25 mg tablet 50 mg PO TID PRN (Reason: allergic reaction) Qty: 10 0RF prednisone 20 mg tablet 40 mg PO DAILY 5 Days Qty: 10 0RF
[2021-11-21] MEDS: dexAMETHasone sod phosphate 10 MG/ML VIAL PO (08:43)
== END 2021-11-21 09:59 | disposition home or self-care (01) ==
PROVIDERS: Emergency Provider Emergency Medicine; PCP Internal Medicine
DX: T78.1XXA Other adverse food reactions, not elsewhere classified, initial encounter (principal); T78.3XXA Angioneurotic edema, initial encounter; X58.XXXA Exposure to other specified factors, initial encounter
CPT/HCPCS: 99283; J1100

== ENCOUNTER 2021-11-26 11:22 | Outpatient (REF) | payer MEDICARE, MEDICAID, SELFPAY ==
--- NOTE | 2021-11-26 13:01 | MHC.AU.HFA ---
Hearing Instrument Fitting- Adult- Binaural Date of Visit: 11/26/21 Hearing Instruments Dispensed: Right Ear: Hogshead Hooper: [employer] Model: Evolv AI 1600 [facility] Serial Number: [id number] Repair Warranty: 10/21/2024 Loss and Damage Warranty: Service Plan: 11/26/2022 Battery Size: 312 Color: [place] Type of Wax Guard: HearClear Left Ear: Hogshead Hooper: [employer] Model: Evolv AI 1600 [facility] Serial Number: [id number] Repair Warranty: 08/21/2024 Loss and Damage Warranty: 10/21/2024 Service Plan: 11/26/2022 Battery Size: 312 Color: [place] Type of Wax Guard: HearClear Summary of Fitting: Patient fit with new hearing aids as [employer] was not able to change the original aids fit 08/09/2021 as was needed for the patient. Patient did not arrive at the proper time, but I did not reschedule her as I felt it was necessary to fit the aids as we have had the aids for over 2 months waiting to fit them. Ran feedback test. Patient did not want any programming changes made as the aids are fitting much better than the original and the sound quality seems good while in office. Real Ear was NOT performed at today's appointment. Reviewed insertion and practiced battery change. Provided a magnet as patient was having difficulty with removal and insertion of the battery. Dispensed 42 batteries today. Advised patient to call me SOON POSSIBLE if she is having ANY difficulties with the hearing aid. If no problems, she will schedule appointment as needed and a re-evaluation card is in the system. Recommendations: Hearing instrument care and maintenance were discussed and practiced. See handouts for care/use instructions and battery information. Patient does not feel follow-up is necessary at this time. Diagnosis Code(s): Primary Diagnosis: H90.3 Bilateral Sensorineural Hearing Loss Services Performed: Number of Individual Battery Cells: 42 Aids already billed 08/09/2021 Signature:Provider: Eddi Burrell, [facility]
== END 2021-11-26 11:23 | disposition home or self-care (01) ==
LOC: HO.HAP 11:22
PROVIDERS: Visit Provider Internal Medicine
DX: Z46.1 Encounter for fitting and adjustment of hearing aid (principal); H90.3 Sensorineural hearing loss, bilateral
CPT/HCPCS: V5266

== ENCOUNTER 2021-12-04 15:52 | Outpatient (REF) | payer MEDICARE, MEDICAID, SELFPAY ==
[2021-12-04 16:45] LABS: Influenza A PCR NEGATIVE (Negative); Influenza B PCR NEGATIVE (Negative); Resp Syncy Virus RNA Qual PCR NEGATIVE (Negative); SARS COV2 PCR INHOUSE POSITIVE (Negative)
== END 2021-12-04 15:53 | disposition home or self-care (01) ==
LOC: HO.LNP 15:52
PROVIDERS: Visit Provider Internal Medicine
DX: Z20.822 Contact with and (suspected) exposure to COVID-19 (principal)
CPT/HCPCS: 0241U; C9803

== ENCOUNTER 2022-05-14 16:40 | Emergency (ER) | payer MEDICARE, MEDICAID, SELFPAY ==
[2022-05-14 16:46] VITALS: BP 140/89; PULSE 71; RESP 16; TEMP 36.6; O2SAT 95; BMI 34.0
--- NOTE | 2022-05-14 16:50 | ED.ALLEREA ---
HPI - Allergic Reaction General Chief complaint: Allergic Reaction <CATRACHO Petersen - Last Filed: 05/14/22 17:08> Stated complaint: Lower lip swelling <CATRACHO Petersen - Last Filed: 05/14/22 17:08> Time Seen by Provider: 05/14/22 17:54 <CATRACHO Petersen - Last Filed: 05/14/22 17:08> Source: patient <Radha Crowe NP - Last Filed: 05/14/22 23:51> Mode of arrival: ambulatory <Radha Crowe NP - Last Filed: 05/14/22 23:51> Limitations: no limitations <Radha Crowe NP - Last Filed: 05/14/22 23:51> History of Present Illness HPI narrative: 67-year-old female presents with lower lip swelling that occurred today, had oral surgery molar extraction yesterday. Patient does have a history of angioedema. <Radha Crowe NP - Last Filed: 05/14/22 23:51> MD complaint: allergic reaction and other (Angioedema) <Radha Crowe NP - Last Filed: 05/14/22 23:51> Onset (ago): day(s) (1) <Radha Crowe NP - Last Filed: 05/14/22 23:51> Exposure: unknown <Radha Crowe NP - Last Filed: 05/14/22 23:51> Symptoms: lip swelling <Radha Crowe NP - Last Filed: 05/14/22 23:51> Severity: moderate <Radha Crowe NP - Last Filed: 05/14/22 23:51> Treatment prior to arrival: none <Radha Crowe NP - Last Filed: 05/14/22 23:51> Previous Allergic Reaction History: prior ED visit(s) and angioedema <Radha Crowe NP - Last Filed: 05/14/22 23:51> Related Data Home medications: Home Medications Medication Instructions Recorded Confirmed cetirizine 10 mg capsule (Zyrtec) 10 mg PO DAILY PRN Allergy Symptoms 10/23/20 05/14/22 hydrochlorothiazide 25 mg tablet 1 tab PO DAILY 10/23/20 05/14/22 latanoprost 0.005 % eye drops 1 drp ophthalmic (eye) BEDTIME 10/23/20 05/14/22 Previous Rx's Medication Instructions Recorded diphenhydramine HCl 25 mg capsule 50 mg PO TID PRN angioedema 3 days 05/14/22 (Benadryl) #30 caps famotidine 20 mg tablet 20 mg PO BID 7 days #14 tabs 05/14/22 potassium chloride 20 mEq 40 meq PO ONCE 1 day #2 tabs 05/14/22 tablet,extended release(part/cryst) (Klor-Con M) prednisone 20 mg tablet 40 mg PO DAILY 7 days #14 tabs 05/14/22 <CATRACHO Petersen - Last Filed: 05/14/22 17:08> Allergies/adverse reactions: Allergies Allergy/AdvReac Type Severity Reaction Status Date / Time apple [APPLE] Allergy Severe FACIAL Verified 12/08/20 16:42 SWELLING lisinopril [LISINOPRIL] Allergy Severe FACIAL Verified 12/08/20 16:42 SWELLING metoprolol [METOPROLOL] Allergy Severe FACIAL Verified 12/08/20 16:42 SWELLING, facial swelling with any bp med nut - unspecified [NUTS] Allergy Severe Facial Verified 12/08/20 16:42 Swelling pectin [PECTIN] Allergy Severe Facial Verified 12/08/20 16:42 Swelling triamterene [TRIAMTERENE] Allergy Severe FACIAL Verified 12/08/20 16:42 SWELLING DAIRY PRODUCTS Allergy Severe Facial Uncoded 10/23/20 15:50 Swelling <CATRACHO Petersen - Last Filed: 05/14/22 17:08> Review of Systems Review of Systems: Constitutional: No Fever, No Chills, positive lower lip swelling Cardiovascular: No Chest Pain, No SOB Respiratory: No Cough, No Dyspnea Gastrointestinal: No Nausea, No Vomiting, No Diarrhea, No abdominal Pain Genitourinary: No Dysuria, No Hematuria Musculoskeletal: No joint pain, No Myalgias, No Joint Swelling Skin: No Skin lacerations, No rash Neuro: No Weakness, No Numbness, No Paresthesias, No Dizziness, No Headache <Radha Crowe NP - Last Filed: 05/14/22 23:51> Yes all other systems are reviewed and are negative <Radha Crowe NP - Last Filed: 05/14/22 23:51> [facility] Past Medical History Attestation statement: The following information was validated with the patient. <Radha Crowe NP - Last Filed: 05/14/22 23:51> Source: old records reviewed <Radha Crowe NP - Last Filed: 05/14/22 23:51> Medical History: Medical History Anxiety Arthritis Glaucoma Heartburn Hiatal hernia Hx of cardiac murmur Hx of cleft palate with cleft lip Hx of hypoglycemia IBS (irritable bowel syndrome) <CATRACHO Petersen - Last Filed: 05/14/22 17:08> Surgical History: Surgical History H/O rhinoplasty History of esophagogastroduodenoscopy (EGD) Hx of bilateral breast reduction surgery Hx of cholecystectomy Hx of colonoscopy <CATRACHO Petersen - Last Filed: 05/14/22 17:08> Social History Social History: Social History Alcohol intake: never Patient Tobacco Use Status: Never used Tobacco Smoked in Last 30 Days: No Use of substances other than those prescribed or required for medical reasons: No Advance Directives: No Advance Directives Information Provided: Yes <CATRACHO Petersen - Last Filed: 05/14/22 17:08> Physical Exam ED Vital Signs: Vital Signs - 24 hr 05/14/22 16:46 05/14/22 21:12 05/14/22 21:32 Temperature 98 F Pulse Rate 71 77 89 Respiratory Rate 16 16 Blood Pressure 140/89 H 152/93 H Pulse Oximetry 95 97 Oxygen Delivery Method Room Air Room Air 05/14/22 21:56 Temperature 97.6 F Pulse Rate 78 Respiratory Rate 12 Blood Pressure 165/84 H Pulse Oximetry 97 Oxygen Delivery Method Room Air BMI result Body Mass Index 34.0 <CATRACHO Petersen - Last Filed: 05/14/22 17:08> Vital Signs - 24 hr 05/14/22 16:46 05/14/22 21:12 05/14/22 21:32 Temperature 98 F Pulse Rate 71 77 89 Respiratory Rate 16 16 Blood Pressure 140/89 H 152/93 H Pulse Oximetry 95 97 Oxygen Delivery Method Room Air Room Air 05/14/22 21:56 Temperature 97.6 F Pulse Rate 78 Respiratory Rate 12 Blood Pressure 165/84 H Pulse Oximetry 97 Oxygen Delivery Method Room Air BMI result Body Mass Index 34.0 <Radha Crowe NP - Last Filed: 05/14/22 23:51> Appearance: Alert. Oriented X3. No acute distress. Eyes: Pupils equal, round and reactive to light. EOMI. Sclera nonicteric. ENT: Pharynx normal. Uvula normal. No tongue swelling. No indication of Kei angina. Lower lip swelling consistent with angioedema. Neck: Normal inspection. Neck supple. No vertebral tenderness or step-offs. No crepitus. No nuchal rigidity. No mastoid tenderness. CVS: Normal heart rate and rhythm. Pulses normal. Respiratory: No respiratory distress. Breath sounds normal. No tracheal stridor. Abdomen: Soft and nontender. Skin: Skin warm and dry. Normal skin color. Normal skin turgor. Extremities: No lower extremity edema. Gait not assessed for safety. Neuro: No motor deficit. No sensory deficit. Cranial nerves 2-12 intact <Radha Crowe NP - Last Filed: 05/14/22 23:51> Course Course Course Narrative: This is an RME: Additional HPI, ROS, PE not included below will be deferred to primary provider. 67-year-old female presents with angioedema worsening since this morning. Reports her throat feels dry and is having difficulty swallowing. Reports allergies to apple, lisinopril and metoprolol. Had a dental procedure done yesterday tooth extraction without any complications. Was not discharged home on antibiotics however took penicillin prior to the procedure. Physical examination with angioedema noted. Patent airway. Patient controlling secretions well 100% on room air. Decadron and Benadryl ordered Spoke to Dr. Nation about this case who wants patient back to main department. Patient put in sandoval by room 4-5 until bed becomes available <CATRACHO Petersen - Last Filed: 05/14/22 17:08> This is an RME: Additional HPI, ROS, PE not included below will be deferred to primary provider. 67-year-old female presents with angioedema worsening since this morning. Reports her throat feels dry and is having difficulty swallowing. Reports allergies to apple, lisinopril and metoprolol. Had a dental procedure done yesterday tooth extraction without any complications. Was not discharged home on antibiotics however took penicillin prior to the procedure. Physical examination with angioedema noted. Patent airway. Patient controlling secretions well 100% on room air. Decadron and Benadryl ordered Spoke to Dr. Nation about this case who wants patient back to main department. Patient put in sandoval by room 4-5 until bed becomes available 67-year-old female presents to the emergency department for angioedema. States that she has had dozens of episodes in the past 10 years for angioedema. This occurs what seems to be ?randomly and could be because of cold, allergy exposure, or other unknown reasons. Patient states that she does have a family history of cold urticaria, her mother used to have hives when exposed to cold. Patient has been treated over a dozen times in the past 5 years for angioedema, and usually requires EpiPen. Patient is adamant about not having any allergy testing, because she is afraid of anaphylaxis. Her sister presents with her at bedside, who is a physician. Patient was given dexamethasone and Benadryl p.o. in the emergency department waiting room. Shortly upon patient's arrival she was brought back to the main ED. no indication of Kei's angina. 19:32 patient shows no significant improvement with dexamethasone and p.o. Benadryl. Will give IV dose of famotidine and IV Benadryl. 20:30 slight decrease in inflammation to the lower lip, less swelling on the left than the right. Lung sounds are clear. Patient is able to manage secretions. 21:18 No significant improvement with famotidine and IV Benadryl, plan is for IM epi.. Potassium is 3.0, will replete with 40 mEq p.o.. Discussion with hospitalist, hospitalist as not feel that this patient requires admission as patient has had multiple episodes of angioedema without complication. 23:30 marked improvement in swelling to the lower lip. Plan of care is to discharge home with medication regimen of prednisone 40 for 7 days, Benadryl 50 mg Q 8 for 3 days, famotidine 20 b.i.d. for 7 days, and 1 dose of potassium for tomorrow. <Radha Crowe NP - Last Filed: 05/14/22 23:51> Medications Administered Discontinued Medications Generic Name Dose Route Start Last Admin Trade Name Wilder PRN Reason Stop Dose Admin Dexamethasone Sodium Phosphate 10 mg 05/14/22 16:50 05/14/22 17:01 Dexamethasone Sod Phosphate 10 Mg/Ml Vial IVPUSH 05/14/22 16:51 10 mg ONCE ONE Administration Diphenhydramine HCl 50 mg 05/14/22 16:50 05/14/22 17:01 Diphenhydramine Hcl 25 Mg Capsule PO 05/14/22 16:51 50 mg ONCE ONE Administration Diphenhydramine HCl 25 mg 05/14/22 18:06 05/14/22 18:44 Diphenhydramine Hcl 50 Mg/Ml Vial IVPUSH 05/14/22 18:07 25 mg ONCE ONE Administration Epinephrine 0.3 mg 05/14/22 21:15 05/14/22 21:32 Epinephrine 1 Mg/Ml Vial IM 05/14/22 21:16 0.3 mg STAT STA Administration Famotidine 20 mg 05/14/22 18:04 05/14/22 18:44 Famotidine/Pf 20 Mg/2 Ml Vial IVPUSH 05/14/22 18:05 20 mg ONCE ONE Administration Potassium Chloride 40 meq 05/14/22 22:54 05/14/22 22:59 Potassium Chloride Packet 20 Meq Packet PO 05/14/22 22:55 40 meq ONCE ONE Administration <CATRACHO Petersen - Last Filed: 05/14/22 17:08> Medications Administered Discontinued Medications Generic Name Dose Route Start Last Admin Trade Name Wilder PRN Reason Stop Dose Admin Dexamethasone Sodium Phosphate 10 mg 05/14/22 16:50 05/14/22 17:01 Dexamethasone Sod Phosphate 10 Mg/Ml Vial IVPUSH 05/14/22 16:51 10 mg ONCE ONE Administration Diphenhydramine HCl 50 mg 05/14/22 16:50 05/14/22 17:01 Diphenhydramine Hcl 25 Mg Capsule PO 05/14/22 16:51 50 mg ONCE ONE Administration Diphenhydramine HCl 25 mg 05/14/22 18:06 05/14/22 18:44 Diphenhydramine Hcl 50 Mg/Ml Vial IVPUSH 05/14/22 18:07 25 mg ONCE ONE Administration Epinephrine 0.3 mg 05/14/22 21:15 05/14/22 21:32 Epinephrine 1 Mg/Ml Vial IM 05/14/22 21:16 0.3 mg STAT STA Administration Famotidine 20 mg 05/14/22 18:04 05/14/22 18:44 Famotidine/Pf 20 Mg/2 Ml Vial IVPUSH 05/14/22 18:05 20 mg ONCE ONE Administration Potassium Chloride 40 meq 05/14/22 22:54 05/14/22 22:59 Potassium Chloride Packet 20 Meq Packet PO 05/14/22 22:55 40 meq ONCE ONE Administration <Radha Crowe NP - Last Filed: 05/14/22 23:51> Medical Decision Making Differential Diagnosis Differential Diagnoses: The differential diagnosis associated with the presentation includes <Radha Crowe NP - Last Filed: 05/14/22 23:51> Angioedema, allergy <Radha Crowe NP - Last Filed: 05/14/22 23:51> Admission/Observation Consideration of admission/observation: Escalation of care including admission/observation considered <Radha Crowe NP - Last Filed: 05/14/22 23:51> Admission considered if angioedema does not resolve <Radha Crowe NP - Last Filed: 05/14/22 23:51> Consult Healthcare Provider Management of the patient was discussed with: Hospitalist <Radha Crowe NP - Last Filed: 05/14/22 23:51> Lab Data MDM Lab Attestation statement: I reviewed the patient's lab results. <Radha Crowe NP - Last Filed: 05/14/22 23:51> Result Diagrams: 05/14/22 18:32 05/14/22 18:32 <CATRACHO Petersen - Last Filed: 05/14/22 17:08> Labs: Lab Results 05/14/22 05/14/22 Range/Units 18:32 19:30 WBC 8.7 (4.8-10.8) X10*3/uL RBC 4.37 (4.20-5.50) X10*6/uL Hgb 12.8 (12.0-16.0) g/dl Hct 37.8 (37.0-47.0) % MCV 86.5 (80.0-98.0) fL MCH 29.3 (27.0-33.0) pg MCHC 33.9 (31.0-35.0) g/dl RDW 12.8 (11.0-16.0) % Plt Count 206 (160-400) X10*3/uL MPV 12.3 (9.4-12.3) fL Immature Gran % (Auto) 0.2 (0.0-0.4) % Neut % (Auto) 78.7 H (45-73) % Lymph % (Auto) 15.8 L (20-40) % [place] % (Auto) 4.0 (2-11) % Eos % (Auto) 1.0 (0-4) % Baso % (Auto) 0.3 (0-2) % Lymph # (Auto) 1.4 (1.2-4.9) X10*3/uL [place] # (Auto) 0.4 (0.1-1.2) X10*3/uL Eos # (Auto) 0.1 (0.0-0.4) X10*3/uL Baso # (Auto) 0.0 (0.0-0.2) X10*3/uL Abs Immat Gran (auto) 0.02 (0.00-0.03) X10*3/uL Absolute Neuts (auto) 6.8 (2.0-8.3) x10*3/uL Absolute Nucleated RBC 0.000 (0.0-0.012) X10*3/uL Nucleated RBC % (auto) 0.0 (0.0-0.2) /100WBC Sodium 139 (135-145) mmol/L Potassium 3.0 L (3.3-5.1) mmol/L Chloride 110 H (96-108) mmol/L Carbon Dioxide 21 L (22-29) mmol/L Anion Gap 11 L (12-20) BUN 15 (9-16) mg/dL Creatinine 0.79 (0.5-1.4) mg/dL Estim Creat Clear Calc 68.7 Estimated GFR > 60 Random Glucose 85 (60-115) mg/dL Calcium 7.7 L D (8.4-10.2) mg/dL <CATRACHO Petersen - Last Filed: 05/14/22 17:08> Lab Results 05/14/22 05/14/22 Range/Units 18:32 19:30 WBC 8.7 (4.8-10.8) X10*3/uL RBC 4.37 (4.20-5.50) X10*6/uL Hgb 12.8 (12.0-16.0) g/dl Hct 37.8 (37.0-47.0) % MCV 86.5 (80.0-98.0) fL MCH 29.3 (27.0-33.0) pg MCHC 33.9 (31.0-35.0) g/dl RDW 12.8 (11.0-16.0) % Plt Count 206 (160-400) X10*3/uL MPV 12.3 (9.4-12.3) fL Immature Gran % (Auto) 0.2 (0.0-0.4) % Neut % (Auto) 78.7 H (45-73) % Lymph % (Auto) 15.8 L (20-40) % [place] % (Auto) 4.0 (2-11) % Eos % (Auto) 1.0 (0-4) % Baso % (Auto) 0.3 (0-2) % Lymph # (Auto) 1.4 (1.2-4.9) X10*3/uL [place] # (Auto) 0.4 (0.1-1.2) X10*3/uL Eos # (Auto) 0.1 (0.0-0.4) X10*3/uL Baso # (Auto) 0.0 (0.0-0.2) X10*3/uL Abs Immat Gran (auto) 0.02 (0.00-0.03) X10*3/uL Absolute Neuts (auto) 6.8 (2.0-8.3) x10*3/uL Absolute Nucleated RBC 0.000 (0.0-0.012) X10*3/uL Nucleated RBC % (auto) 0.0 (0.0-0.2) /100WBC Sodium 139 (135-145) mmol/L Potassium 3.0 L (3.3-5.1) mmol/L Chloride 110 H (96-108) mmol/L Carbon Dioxide 21 L (22-29) mmol/L Anion Gap 11 L (12-20) BUN 15 (9-16) mg/dL Creatinine 0.79 (0.5-1.4) mg/dL Estim Creat Clear Calc 68.7 Estimated GFR > 60 Random Glucose 85 (60-115) mg/dL Calcium 7.7 L D (8.4-10.2) mg/dL <Radha Crowe NP - Last Filed: 05/14/22 23:51> Independent Historian Clinical information obtained from an independent historian. History obtained from or confirmed by: Other (Sister) <Radha Crowe NP - Last Filed: 05/14/22 23:51> External Record Review External record reviewed: Outpatient record, Prior outpatient labs and Prior outpatient radiology <Radha Crowe NP - Last Filed: 05/14/22 23:51> Prescription Management I considered prescription management with: Other (Antihistamines) <Radha Crowe NP - Last Filed: 05/14/22 23:51> Discharge Plan Discharge Clinical Impression: Angioedema <CATRACHO Petersen - Last Filed: 05/14/22 17:08> Patient Disposition: Home, Self-Care <CATRACHO Petersen - Last Filed: 05/14/22 17:08> Instructions: Angioedema (ED) <CATRACHO Petersen - Last Filed: 05/14/22 17:08> Additional Instructions: You were evaluated for angioedema. Please take Benadryl 50 mg every 6 hours for the next 3 days, continue this medication as needed if swelling still persists. Take prednisone 40 mg for the next 7 days. Take famotidine 20 mg twice a day for the next 7 days. Take Klor-Con 40 mEq tomorrow. This is to replete your potassium. Do not take this medication at the same time you take Benadryl Consider following up with your physician for allergy testing. Thank you for choosing this emergency department for evaluation. Please follow-up with primary care physician as needed. Return to the emergency department for any new, concerning, or worsening symptoms. <CATRACHO Petersen Last Filed: 05/14/22 17:08> Prescriptions: New diphenhydramine HCl [Benadryl] 25 mg capsule 50 mg PO TID PRN (Reason: angioedema) 3 Days Qty: 30 0RF prednisone 20 mg tablet 40 mg PO DAILY 7 Days Qty: 14 0RF famotidine 20 mg tablet 20 mg PO BID 7 Days Qty: 14 0RF potassium chloride [Klor-Con M20] 20 mEq tablet,ER particles/crystals 40 meq PO ONCE 1 Days Qty: 2 0RF No Action latanoprost 0.005 % drops 1 drp ophthalmic (eye) BEDTIME hydrochlorothiazide 25 mg tablet 1 tab PO DAILY Zyrtec 10 mg Capsule 10 mg PO DAILY PRN (Reason: Allergy Symptoms) <CATRACHO Petersen Last Filed: 05/14/22 17:08>
[2022-05-14] MEDS: diphenhydrAMINE HCL 25 MG CAPSULE 50 MG PO (17:01)
[2022-05-14] MEDS: dexAMETHasone sod phosphate 10 MG/ML VIAL IVPUSH (17:01)
--- OUTSIDE RECORDS SUMMARY | 2022-05-14 17:27 | XMS_ITS ---
:1955 Author Organization [facility] Address [address] [place] [address] Care Team Providers Name Role Phone Scott Suazo Unavailable Unavailable PROBLEMS Type Condition ICD9-CM Code [id number] Onset Condition SNOMED Code Code Dates Status Problem Irritable bowel K58.9 Active 1074 3008 syndrome, unspecified type Problem Diverticulosis of K57.30 Active 73 9124962 colon Problem Pre-procedural Z01.818 Active 68788 9001 examination Problem Encounter for Z12.11 Active 405557 004 screening for malignant neoplasm of colon ALLERGIES Substance Reaction Event Type Date Status Sulfacetamide Sodium Unknown Drug Allergy Aug, Active dairy Unknown Non Drug Allergy Aug, Active Apple,pectin Unknown Non Drug Allergy Aug, Active nuts Unknown Non Drug Allergy Aug, Active ENCOUNTERS Encounter Location Date Diagnosis [address] Oct, [facility] [address] [place] [address] [facility] Out[facility] [address] [place] [address] Oct, Colon cancer [place], [place] [id number] Z12.11 ; C olon polyp K63.5 ; Diverticulosis of colon K57.30 and Inter nal hemorrhoids K64. [address] Sep, [facility] [address] [place] [address] Aug, Encounte r for screening for [facility] [address] [place], [place] malignant neoplasm of colon [address] Z12.11 ; Irritab le bowel syndrome, unspec ified type K58.9 and Pre-pr ocedural examination Z01. 818 [facility] [address] Sep, [facility] [address] [place] [address] [facility] [address] Sep, [facility] [address] [place] [address] [facility] [address] Sep, Irritabl e bowel syndrome [facility] [address] [place] 564.1 [address] [facility] [address] June, [facility] [address] [place] [address] [facility] [address] June, [facility] [address] [place] [address] [facility] [address] Oct, Irritabl e bowel syndrome [facility] [address] [place] 564.1 and Esophageal reflux [address] 530.81 [facility] Outpatient [address] Jul, Teresa [place] [id number] [facility] ER [address] May, Teresa [place] [id number] [facility] ER [address] Apr, Teresa ERINN [id number] IMMUNIZATIONS No Known Immunizations SOCIAL HISTORY Never Assessed REASON FOR REFERRAL FUNCTIONAL STATUS PLAN OF CARE Activity Details Future/Pending Procedure COLONOSCOPY [id number] VITAL SIGNS Weight 179 lbs 2020-09-07 Weight 175 lbs 2013-10-12 Weight 165 lbs 2010-11-08 Height 60.50 in 2020-09-07 Height 60.50 in 2013-10-12 Height 60.50 in 2010-11-08 BMI 34.38 kg/m2 2020-09-07 BMI 33.61 kg/m2 2013-10-12 BMI 31.69 kg/m2 2010-11-08 Heart Rate 68 /min 2013-10-12 Temperature 97.9 degrees Fahrenheit 2020-09-07 Temperature 97.0 degrees Fahrenheit 2010-11-08 Blood pressure systolic 000 mm Hg 2020-09-07 Blood pressure diastolic 00 mm Hg 2020-09-07 MEDICATIONS Medication Instructions Dosage Frequency Start End Duration Statu s Date Date Lastacaft 0.25 % Ophthalmic prn 1 drop Active into affected eye Cetirizine HCl 10 MG Orally Once a 1 tablet 24h Active day ZyrTEC Active Cimetidine 800 MG Orally Once a 1 tablet 24h Not-Taki day at bedtime ng Latanoprost Active Hyoscyamine Sulfate Orally Q 6 1-2 Sep, 30 days A ctive 0.125 MG hours prn tablets 2013 abdominal cramps, bloating, discomfort Hyoscyamine Sulfate Orally Q 6 1-2 07 July, 30 days A ctive 0.125 MG hours prn tablets 2013 abdominal bloating/cramp s hydroCHLOROthiazide Acti ve Benefiber Active Benadryl Active Travatan Z 0.004 % Ophthalmic 1 drop 24h Ac tive Once a day into affected eye in the evening Triamcinolone Active Acetonide PROCEDURES Procedure Date Ordered Result Body Site PATIENT NOT ELIG D/T ACTIVE DX HTN September 07, 2020 TOBACCO NON-USER September 07, 2020 DOC MEDS VERIFIED W/PT OR RE September 07, 2020 DOC MEDS VERIFIED W/PT OR RE Oct 12, 2013 COLORECTAL CA SCREEN DOC REV September 07, 2020 COLONOSCOPY AND BIOPSY Oct 27, 2020 RESULTS Name Result Date Reference Range Pathology 2020-10-27 REASON FOR VISIT results of colonoscopy, screening, Patient presents today for COLON RECALL, wants a refill on hyoscyamine, refill, bloating, bloating, bloating & stomach pain, IBS, GERD Insurance Providers [facility] Health Member Patient Patient Patient Patient Patient Subscriber Subscriber Subscriber Group Insurance Plan Plan Plan Plan ID Relationship Address Phone Name Date of ID Name Date of No Type Insurance Insurance Insurance Coverage to Subscriber Address Phone Name Dates MEDICAID [phone] MEDICAID self JOAN [id number] [place] [id number] OF [facility] [address] [facility] [address] MEDICARE [phone] MEDICARE self JOAN [id number] [place] [address] [place] [facility] [address]
[2022-05-14 18:44] LABS: MANUAL DIFF FLAG NO
[2022-05-14] MEDS: Famotidine/PF 20 MG/2 ML VIAL IVPUSH (18:44)
[2022-05-14] MEDS: diphenhydrAMINE HCL 50 MG/ML VIAL 25 MG IVPUSH (18:44)
[2022-05-14 18:46] LABS: Basophils Percent Auto 0.3 % (0-2); Eosinophils Absolute Auto 0.1 X10*3/uL (0.0-0.4); Hematocrit 37.8 % (37.0-47.0); Hemoglobin 12.8 g/dl (12.0-16.0); Imm Gran Abs Auto 0.02 X10*3/uL (0.00-0.03); Imm Gran Pct Auto 0.2 % (0.0-0.4); Lymphocytes Absolute Auto 1.4 X10*3/uL (1.2-4.9); Lymphocytes Percent Auto 15.8 % (20-40); Mean Corpuscular HGB Conc 33.9 g/dl (31.0-35.0); Mean Corpuscular Hemoglobin 29.3 pg (27.0-33.0); Mean Corpuscular Volume 86.5 fL (80.0-98.0); Mean Platelet Volume 12.3 fL (9.4-12.3); Monocytes Absolute Auto 0.4 X10*3/uL (0.1-1.2); Neutrophils Absolute Auto 6.8 x10*3/uL (2.0-8.3); Neutrophils Percent Auto 78.7 % (45-73); Platelet Count 206 X10*3/uL (160-400); Red Blood Count 4.37 X10*6/uL (4.20-5.50); Red Cell Distribution Width 12.8 % (11.0-16.0); White Blood Count 8.7 X10*3/uL (4.8-10.8)
[2022-05-14 19:54] LABS: Anion Gap 11 (12-20); Blood Urea Nitrogen 15 mg/dL (9-16); Calcium 7.7 mg/dL (8.4-10.2); Carbon Dioxide 21 mmol/L (22-29); Chloride 110 mmol/L (96-108); Creatinine Clr Calc Pharmacy 68.7; Estimated Glomerular Filt Rate > 60; Glucose Random 85 mg/dL (60-115); Sodium 139 mmol/L (135-145)
--- NOTE | 2022-05-14 21:10 | PC.NURSE ---
late entry: pt appearing anxious resting on stretcher at this time, 22g IV placed in left hand. all medications have been administered per MAR. pt verbalizes worry about situation. plan to admit pt at this time, Dr. Madden at bedside
[2022-05-14 21:12] VITALS: PULSE 77; RESP 16; O2SAT 97
[2022-05-14 21:32] VITALS: BP 152/93; PULSE 89
[2022-05-14] MEDS: EPINEPHrine 1 MG/ML VIAL 0.3 MG IM (21:32)
[2022-05-14 21:56] VITALS: BP 165/84; PULSE 78; RESP 12; TEMP 36.4; O2SAT 97
[2022-05-14] MEDS: Potassium Chloride Packet 20 MEQ PACKET 40 MEQ PO (22:59)
== END 2022-05-14 23:59 | disposition home or self-care (01) ==
PROVIDERS: Nurse Practitioner Family; Emergency Provider Emergency Medicine; PCP Internal Medicine
DX: L50.0 Allergic urticaria (principal); Z79.899 Other long term (current) drug therapy
CPT/HCPCS: 36415; 80048; 85025; 96372; 96374; 96375; 99284; J0171; J1100; J1200

== ENCOUNTER 2022-06-04 12:25 | Outpatient (REF) | payer MEDICARE, MEDICAID, SELFPAY ==
[2022-06-04 14:30] LABS: Anion Gap 13 (12-20); Blood Urea Nitrogen 13 mg/dL (9-16); Calcium 9.1 mg/dL (8.4-10.2); Carbon Dioxide 31 mmol/L (22-29); Chloride 99 mmol/L (96-108); Estimated Glomerular Filt Rate 49; Glucose Random 85 mg/dL (60-115); Potassium 3.1 mmol/L (3.3-5.1); Sodium 140 mmol/L (135-145)
== END 2022-06-04 12:26 | disposition home or self-care (01) ==
LOC: HO.10HDL 12:25
PROVIDERS: Visit Provider Internal Medicine
DX: I10 Essential (primary) hypertension (principal); K21.9 Gastro-esophageal reflux disease without esophagitis
CPT/HCPCS: 36415; 80048

== ENCOUNTER 2022-06-14 09:53 | Outpatient (REF) | payer MEDICARE, MEDICAID, SELFPAY ==
--- NOTE | ~2022-06-14 | MM_ITS ---
EXAMINATION: MM SCREENING DIGITAL BREAST TOMOSYNTHESIS, BILATERAL CLINICAL INFORMATION: Screening. Asymptomatic. Reduction mammoplasty 2013. The lifetime risk of breast cancer based on the Tyrer-Cuzick Model is 7%. COMPARISON: Mammography: 06/08/2021, 06/07/2020, 01/11/2019 TECHNIQUE: Digital breast tomosynthesis is performed in both the craniocaudal and mediolateral oblique views along with computer-aided detection (CAD). Synthesized 2D images are generated from the tomosynthesis. FINDINGS: The breasts are almost entirely fatty (ACR BI-RADS breast composition Category a). Background stromal markings are normal. There is no developing density or interval architectural abnormality. Again, there is benign oil cyst with rim calcification mid upper outer right breast. There are no significant masses, abnormal calcifications, or other abnormalities. The axilla are unremarkable. There is minor scarring consistent with the reduction mammoplasty. MM/MM tomosynthesis screening BI IMPRESSION: No mammographic evidence of malignancy. ASSESSMENT: BI-RADS 2: Benign RECOMMENDATION: Routine annual mammography screening. This patient's information was entered into a reminder system with a target due date for their next mammogram.
== END 2022-06-14 09:54 | disposition home or self-care (01) ==
LOC: HO.MAMMO 09:53
PROVIDERS: PCP Internal Medicine; Visit Provider Internal Medicine
DX: Z12.31 Encounter for screening mammogram for malignant neoplasm of breast (principal)
CPT/HCPCS: 77063; 77067

== ENCOUNTER 2022-11-20 12:39 | Outpatient (REF) | payer MEDICARE, MEDICAID, SELFPAY ==
[2022-11-20 14:21] LABS: Alanine Aminotransferase 23 U/L (0-31); Alkaline Phosphatase 102 U/L (39-117); Anion Gap 10 (12-20); Aspartate Amino Transferase 29 U/L (5-31); Bilirubin Total 0.4 mg/dL (0.0-1.0); Blood Urea Nitrogen 17 mg/dL (9-16); Calcium 9.3 mg/dL (8.4-10.2); Carbon Dioxide 31 mmol/L (22-29); Chloride 103 mmol/L (96-108); Estimated Glomerular Filt Rate 54; Glucose Random 101 mg/dL (60-115); Potassium 3.9 mmol/L (3.3-5.1); Sodium 140 mmol/L (135-145); Total Protein 7.1 g/dL (6.5-8.0)
== END 2022-11-20 12:40 | disposition home or self-care (01) ==
LOC: HO.10HDL 12:39
PROVIDERS: Visit Provider Internal Medicine
DX: I10 Essential (primary) hypertension (principal); R79.89 Other specified abnormal findings of blood chemistry
CPT/HCPCS: 36415; 80053

== ENCOUNTER 2023-05-13 11:30 | Outpatient (REF) | payer MEDICARE, MEDICAID, SELFPAY ==
[2023-05-13 13:24] LABS: MANUAL DIFF FLAG NO
[2023-05-13 13:49] LABS: Basophils Percent Auto 0.5 % (0-2); Eosinophils Absolute Auto 0.2 X10*3/uL (0.0-0.4); Eosinophils Percent Auto 2.7 % (0-4); Hematocrit 36.8 % (37.0-47.0); Hemoglobin 12.4 g/dl (12.0-16.0); Imm Gran Abs Auto 0.02 X10*3/uL (0.00-0.03); Imm Gran Pct Auto 0.2 % (0.0-0.4); Lymphocytes Percent Auto 24.2 % (20-40); Mean Corpuscular HGB Conc 33.7 g/dl (31.0-35.0); Mean Corpuscular Hemoglobin 30.4 pg (27.0-33.0); Mean Corpuscular Volume 90.2 fL (80.0-98.0); Mean Platelet Volume 11.9 fL (9.4-12.3); Monocytes Absolute Auto 0.6 X10*3/uL (0.1-1.2); Monocytes Percent Auto 7.9 % (2-11); Neutrophils Absolute Auto 5.3 x10*3/uL (2.0-8.3); Neutrophils Percent Auto 64.5 % (45-73); Platelet Count 254 X10*3/uL (160-400); Red Blood Count 4.08 X10*6/uL (4.20-5.50); Red Cell Distribution Width 12.9 % (11.0-16.0); White Blood Count 8.1 X10*3/uL (4.8-10.8)
[2023-05-13 14:25] LABS: Alanine Aminotransferase 38 U/L (0-31); Alkaline Phosphatase 132 U/L (39-117); Anion Gap 12 (12-20); Aspartate Amino Transferase 33 U/L (5-31); Bilirubin Total 0.5 mg/dL (0.0-1.0); Blood Urea Nitrogen 18 mg/dL (9-16); Calcium 9.4 mg/dL (8.4-10.2); Carbon Dioxide 29 mmol/L (22-29); Chloride 102 mmol/L (96-108); Estimated Glomerular Filt Rate 52; Glucose Random 92 mg/dL (60-115); Potassium 3.6 mmol/L (3.3-5.1); Sodium 139 mmol/L (135-145); Total Protein 7.3 g/dL (6.5-8.0)
[2023-05-13 14:26] LABS: Free T4 (Free Thyroxine) 0.98 ng/dL (0.71-1.85); Thyroid Stimulating Hormone 1.74 uIU/mL (0.32-4.0)
== END 2023-05-13 11:31 | disposition home or self-care (01) ==
LOC: HO.10HDL 11:30
PROVIDERS: Visit Provider Internal Medicine
DX: I10 Essential (primary) hypertension (principal); K21.9 Gastro-esophageal reflux disease without esophagitis; L65.9 Nonscarring hair loss, unspecified; N18.9 Chronic kidney disease, unspecified
CPT/HCPCS: 36415; 80053; 84439; 84443; 85025; 87086

== ENCOUNTER 2023-06-20 09:23 | Outpatient (REF) | payer MEDICARE, MEDICAID, SELFPAY ==
--- NOTE | ~2023-06-20 | MM_ITS ---
EXAMINATION: MM SCREENING DIGITAL BREAST TOMOSYNTHESIS, BILATERAL CLINICAL INFORMATION: Screening. Asymptomatic. The patient is status post bilateral breast reduction. COMPARISON: Mammography: This study is compared with prior exams dating back to 2018. TECHNIQUE: Digital breast tomosynthesis is performed in both the craniocaudal and mediolateral oblique views along with computer-aided detection (CAD). Synthesized 2D images are generated from the tomosynthesis. FINDINGS: There are scattered areas of fibroglandular density (ACR BI-RADS breast composition Category b). There are no significant masses, abnormal calcifications, or other abnormalities. Bilateral post reduction changes are present. MM/MM tomosynthesis screening BI IMPRESSION: No mammographic evidence of malignancy. ASSESSMENT: BI-RADS BI-RADS 2 - Benign Findings RECOMMENDATION: Routine annual mammography screening. 1 year F/U This examination should not preclude the clinical evaluation of a suspicious palpable abnormality. This patient's information was entered into a reminder system with a target due date for their next mammogram.
== END 2023-06-20 09:24 | disposition home or self-care (01) ==
LOC: HO.MAMMO 09:23
PROVIDERS: PCP Internal Medicine; Visit Provider Internal Medicine
DX: Z12.31 Encounter for screening mammogram for malignant neoplasm of breast (principal)
CPT/HCPCS: 77063; 77067

== ENCOUNTER → 2023-06-20 10:00 | Outpatient (BNV) | payer MEDICARE, MEDICAID, SELFPAY | PROVIDERS: PCP Internal Medicine; Visit Provider Radiology Diagnostic Radiology | DX: Z12.31 Encounter for screening mammogram for malignant neoplasm of breast (principal) | CPT/HCPCS: 77063; 77067 ==

== ENCOUNTER 2023-07-07 15:20 | Emergency (ER) | payer MEDICARE, MEDICAID, SELFPAY ==
--- NOTE | ~2023-07-07 | XR_ITS ---
EXAMINATION: XR CHEST CLINICAL INFORMATION: Cough. COMPARISON: Chest radiograph dated 12/01/2008. TECHNIQUE: 2 views of the chest were obtained. FINDINGS: The cardiac silhouette appears minimally enlarged. There is no consolidation within either lung. There is no pleural effusion or pneumothorax. No acute osseous abnormality. XR/XR chest 2V IMPRESSION: No acute cardiopulmonary disease. There may be minimal cardiomegaly.
[2023-07-07 16:04] VITALS: BP 160/91; PULSE 68; RESP 20; TEMP 36.6; O2SAT 98; BMI 41.2
--- NOTE | 2023-07-07 16:06 | ED.URI ---
HPI - URI/Sore Throat General Chief Complaint: Upper Respiratory Symptoms Stated Complaint: sore throat, phlegm, and cough Time Seen by Provider: 07/07/23 19:39 Source: patient Mode of arrival: ambulatory History of Present Illness HPI Narrative: 68-year-old female who reports 2 weeks of increased nasal congestion, sore throat, cough and states that she is producing yellowish phlegm when clearing her throat but otherwise denies any fevers or chills. Related Data Home Medications ?Medication ?Instructions ?Recorded ?Confirmed cetirizine 10 mg capsule (Zyrtec) 10 mg PO DAILY PRN Allergy Symptoms 10/23/20 05/14/22 hydrochlorothiazide 25 mg tablet 1 tab PO DAILY 10/23/20 05/14/22 latanoprost 0.005 % eye drops 1 drp ophthalmic (eye) BEDTIME 10/23/20 05/14/22 Previous Rx's ?Medication ?Instructions ?Recorded diphenhydramine HCl 25 mg capsule 50 mg (2 x 25 mg) PO TID PRN 05/14/22 (Benadryl) angioedema 3 days #30 caps famotidine 20 mg tablet 20 mg PO BID 7 days #14 tabs 05/14/22 potassium chloride 20 mEq 40 meq (2 x 20 mEq) PO ONCE 1 day 05/14/22 tablet,extended #2 tabs release(part/cryst) (Klor-Con M) prednisone 20 mg tablet 40 mg (2 x 20 mg) PO DAILY 7 days 05/14/22 #14 tabs Allergies Allergy/AdvReac Type Severity Reaction Status Date / Time apple [APPLE] Allergy Severe FACIAL Verified 07/07/23 16:07 SWELLING lisinopril [LISINOPRIL] Allergy Severe FACIAL Verified 07/07/23 16:07 SWELLING metoprolol [METOPROLOL] Allergy Severe FACIAL Verified 07/07/23 16:07 SWELLING, facial swelling with any bp med nut - unspecified [NUTS] Allergy Severe Facial Verified 07/07/23 16:07 Swelling pectin [PECTIN] Allergy Severe Facial Verified 07/07/23 16:07 Swelling triamterene [TRIAMTERENE] Allergy Severe FACIAL Verified 07/07/23 16:07 SWELLING DAIRY PRODUCTS Allergy Severe Facial Uncoded 10/23/20 15:50 Swelling Review of Systems Review of Systems: Pertinent positives and negatives as stated in [facility]PI [facility] Past Medical History Source: nursing notes reviewed Medical History Anxiety Hx of hypoglycemia Arthritis IBS (irritable bowel syndrome) Glaucoma Hx of cardiac murmur Heartburn Hiatal hernia Hx of cleft palate with cleft lip Surgical History Hx of cholecystectomy Hx of colonoscopy History of esophagogastroduodenoscopy (EGD) Hx of bilateral breast reduction surgery H/O rhinoplasty Social History Social History Alcohol intake: never Patient Tobacco Use Status: Never used Tobacco Smoked in Last 30 Days: No Use of substances other than those prescribed or required for medical reasons: No Advance Directives: No Advance Directives Information Provided: No Do you have a plan to hurt others: No Plan Physical Exam Vital Signs: Vital Signs: Last Vital Signs Temp 97.9 F 07/07/23 16:04 Pulse 68 07/07/23 16:04 Resp 20 07/07/23 16:04 BP 160/91 H 07/07/23 16:04 Pulse Ox 98 07/07/23 16:04 O2 Del Method Room Air 07/07/23 16:04 BMI result Body Mass Index 41.2 VITAL SIGNS: Reviewed. GENERAL: Well developed, well nourished, in no acute distress. HEAD: Normocephalic/atraumatic EYES: PERRLA, EOMI EARS: Ext canals without abnormality, TMs non-bulging and non-erythematous NOSE: Nasal congestion with boggy turbinates OROPHARYNX: no oral lesions noted, posterior pharynx clear and non-erythematous without noted tonsillar enlargement/erythema/exudates NECK: Supple, no adenopathy LUNGS: Normal breath sounds. No adventitious sounds or accessory muscle use. SpO2<98> CARDIOVASCULAR: Regular rate and rhythm without noted murmurs ABDOMEN: Soft, non-tender, non-distended with bowel sounds. MUSCULOSKELETAL: No tenderness, deformities, or effusions noted on gross inspection. EXTREMITIES: No cyanosis, clubbing or edema. SKIN: Inspection of the skin reveals no rashes NEUROLOGIC: Alert and oriented x 4. Strength and sensation to light touch were grossly intact x 4. Course Course Course Narrative: This is a Rapid Medical Examination (RME) performed by Sunny Ann PA-C in triage. Full HPI, ROS, assessment and treatment plan per primary provider in the Main ED. 68-year-old female with history of seasonal allergies, history of angioedema who presents to the ER for evaluation of 2-3 weeks of cough, sore throat, runny nose. In triage patient is awake, alert, speaking in complete sentences, SpO2 99%. Lungs are clear throughout. Plan: Chest x-ray, viral swabs, strep swab Medical Decision Making Medical Decision Making MDM Narrative: 68-year-old female with history and clinical presentation, DDX: Viral illness, seasonal allergies with postnasal drip/allergic rhinitis I reviewed investigations and viral testing is negative for influenza/RSV/COVID-19 and rapid strep is negative. Chest x-ray negative for infiltrate or venous congestion otherwise my interpretation is in agreement with radiology's impression. My interpretation is that patient has been suffering from postnasal drip with allergic rhinitis and is otherwise hemodynamically stable without tachypnea/tachycardia or hypoxia. Patient is strongly encouraged to follow her primary care doctor's directions for the use of Nichelle and Flonase and she is otherwise discharged. Differential Diagnosis Differential Diagnoses: The differential diagnosis associated with the presentation includes Please see the discussion above Admission/Observation Consideration of admission/observation: Escalation of care including admission/observation considered Please see the discussion above Lab Data MDM Lab Attestation statement: I reviewed the patient's lab results. Please see the discussion above Labs: Lab Results 07/07/23 Range/Units 16:13 Influenza Type A (PCR) NEGATIVE (Negative) Influenza Type B (PCR) NEGATIVE (Negative) RSV RNA Qual (PCR) NEGATIVE (Negative) SARS-CoV-2 RNA (RT-PCR) NEGATIVE (Negative) S. pyogenes GrpA ADRIÁN Negative (Negative) Radiology Impression Discussion of test interpretation with radiology: I have reviewed the radiologist's reading. Radiologist Impression: Please see the discussion above External Record Review External record reviewed: Outpatient record and Prior outpatient labs Critical Care Time Critical Care Time Critical Care Time: Yes Total Critical Care Time: 30 Attestation: I personally attest to this time spent taking care of the patient. Discharge Plan Discharge Clinical Impression: Seasonal allergic rhinitis, Post-nasal drip Patient Disposition: Home, Self-Care Instructions: Allergic Rhinitis (ED), Postnasal Drip (DC) Additional Instructions: Please continue with your seasonal allergy medication to include Flonase. Follow-up with your primary care doctor. Prescriptions: No Action latanoprost 0.005 % drops 1 drp ophthalmic (eye) BEDTIME hydrochlorothiazide 25 mg tablet 1 tab PO DAILY Zyrtec 10 mg Capsule 10 mg PO DAILY PRN (Reason: Allergy Symptoms) diphenhydramine HCl [Benadryl] 25 mg capsule 50 mg PO TID PRN (Reason: angioedema) 3 Days Qty: 30 0RF prednisone 20 mg tablet 40 mg PO DAILY 7 Days Qty: 14 0RF famotidine 20 mg tablet 20 mg PO BID 7 Days Qty: 14 0RF potassium chloride [Klor-Con M20] 20 mEq tablet,ER particles/crystals 40 meq PO ONCE 1 Days Qty: 2 0RF Referrals: Levi Manning MD [Primary Care Provider] - Print Language: Icelandic
[2023-07-07 16:28] LABS: IDNOW Serial# 08D9AD1C; Strep A Nucleic Acid Negative (Negative)
[2023-07-07 17:18] LABS: Influenza A PCR NEGATIVE (Negative); Influenza B PCR NEGATIVE (Negative); Resp Syncy Virus RNA Qual PCR NEGATIVE (Negative); SARS COV2 PCR INHOUSE NEGATIVE (Negative)
--- NOTE | 2023-07-07 19:10 | PC.NURSE ---
this rn assumed care of pt, pt a&ox4, respirations even and unlabored, pt ambulatory into room. pt reporting 2 weeks of sore throat with increasing cough with phlegm. pt reports being seen by PCP and being prescribed allergy medication without relief. pt able to speak in full clear sentences.
[2023-07-07 20:28] VITALS: BP 136/75; PULSE 69; RESP 15; TEMP 36.7; O2SAT 99
[2023-07-07 20:29] VITALS: BP 136/75; PULSE 69; RESP 15; TEMP 36.7; O2SAT 99
== END 2023-07-07 20:29 | disposition home or self-care (01) ==
PROVIDERS: Physician Assistant; Emergency Provider Student in an Organized Health Care Education/Training Program; PCP Internal Medicine
DX: J30.2 Other seasonal allergic rhinitis (principal); J02.8 Acute pharyngitis due to other specified organisms; R05.9 Cough, unspecified; R09.81 Nasal congestion; R09.82 Postnasal drip; Z03.818 Encounter for observation for suspected exposure to other biological agents ruled out
CPT/HCPCS: 0241U; 71046; 87651; 99283; 99284

== ENCOUNTER 2023-09-02 08:08 | Emergency (ER) | payer MEDICARE, MEDICAID, SELFPAY ==
[2023-09-02 08:12] VITALS: BP 134/91; PULSE 68; O2SAT 99
[2023-09-02 08:35] VITALS: BP 155/85; PULSE 64; RESP 18; TEMP 37; O2SAT 99; BMI 35.0
[2023-09-02] MEDS: diphenhydrAMINE HCL 50 MG/ML VIAL IM (12:06)
[2023-09-02] MEDS: dexAMETHasone sod phosphate 10 MG/ML VIAL IVPUSH (12:06)
--- NOTE | 2023-09-02 12:45 | ED.GENADULT ---
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 Admits to taking Benadryl and 40 mg prednisone yesterday, and additional 20 mg of prednisone today which was prescribed by stylist apprentice (has bottle at home when experiences symptoms). Admits symptoms are similar to prior. Denies difficulty breathing, throat closing sensation, wheezing, drooling, SOB, rash. Denies new exposures Related Data Home Medications ?Medication ?Instructions ?Recorded ?Confirmed cetirizine 10 mg capsule (Zyrtec) 10 mg PO DAILY PRN Allergy Symptoms 10/23/20 05/14/22 hydrochlorothiazide 25 mg tablet 1 tab PO DAILY 10/23/20 05/14/22 latanoprost 0.005 % eye drops 1 drp ophthalmic (eye) BEDTIME 10/23/20 05/14/22 Previous Rx's ?Medication ?Instructions ?Recorded diphenhydramine HCl 25 mg capsule 50 mg (2 x 25 mg) PO TID PRN 05/14/22 (Benadryl) angioedema 3 days #30 caps famotidine 20 mg tablet 20 mg PO BID 7 days #14 tabs 05/14/22 potassium chloride 20 mEq 40 meq (2 x 20 mEq) PO ONCE 1 day 05/14/22 tablet,extended #2 tabs release(part/cryst) (Klor-Con M) prednisone 20 mg tablet 40 mg (2 x 20 mg) PO DAILY 7 days 05/14/22 #14 tabs Allergies Allergy/AdvReac Type Severity Reaction Status Date / Time apple [APPLE] Allergy Severe FACIAL Verified 09/02/23 08:37 SWELLING lisinopril [LISINOPRIL] Allergy Severe FACIAL Verified 09/02/23 08:37 SWELLING metoprolol [METOPROLOL] Allergy Severe FACIAL Verified 09/02/23 08:37 SWELLING, facial swelling with any bp med nut - unspecified [NUTS] Allergy Severe Facial Verified 09/02/23 08:37 Swelling pectin [PECTIN] Allergy Severe Facial Verified 09/02/23 08:37 Swelling triamterene [TRIAMTERENE] Allergy Severe FACIAL Verified 09/02/23 08:37 SWELLING DAIRY PRODUCTS Allergy Severe Facial Uncoded 10/23/20 15:50 Swelling Review of Systems Review of Systems: Constitutional: No Fever, No Chills ENT/Mouth: + lower lip swelling, no drooling No Ear Pain, No Hoarseness, No sore throat, No Rhinorrhea, No Swallowing Difficulty Cardiovascular: No Chest Pain, No SOB Respiratory: No Cough, No Sputum, No Wheezing Gastrointestinal: No Nausea, No Vomiting, No Diarrhea, No Constipation, No Abdominal pain Musculoskeletal: No joint pain, No Myalgias, No Joint Swelling Skin: No Skin Lesions, No rash Neuro: No Weakness Yes all other systems are reviewed and are negative Constitutional: Constitutional: Reports as per [facility] Past Medical History Attestation statement: The following information was validated with the patient. Source: old records reviewed Medical History Anxiety Hx of hypoglycemia Arthritis IBS (irritable bowel syndrome) Glaucoma Hx of cardiac murmur Heartburn Hiatal hernia Hx of cleft palate with cleft lip Surgical History Hx of cholecystectomy Hx of colonoscopy History of esophagogastroduodenoscopy (EGD) Hx of bilateral breast reduction surgery H/O rhinoplasty Social History Social History Alcohol intake: never Patient Tobacco Use Status: Never used Tobacco Advance Directives: No Advance Directives Information Provided: Yes Physical Exam ED Vital Signs: Vital Signs - 24 hr 09/02/23 08:35 Temperature 98.6 F Pulse Rate 64 Respiratory Rate 18 Blood Pressure 155/85 H Pulse Oximetry 99 Oxygen Delivery Method Room Air BMI result Body Mass Index 35.0 Const General: cooperative, healthy appearing and no acute distress Orientation/consciousness: patient oriented x3 Limitations: no limitations HENMT Other: + lower lip swelling appreciated Head: Yes normal to inspection and Yes atraumatic Ears: hearing grossly normal bilaterally General nose exam: Normal external nose present Mouth: tongue normal, no audible dysphonia and no drooling Throat: Yes posterior oropharynx normal, Yes uvula midline, No peritonsillar mass, No uvula laterally displaced and No uvular edema Eyes General: appearance normal, both eyes and all related structures EOM: EOMs intact bilaterally Neck Neck: Yes normal visual inspection and Yes no meningeal signs Resp Effort & Inspection: normal respiratory effort, no respiratory distress, no stridor and not tachypneic Auscultation: clear to auscultation bilaterally and no wheezes Cardio Rate: regular rate Skin Rashes: no rashes Wounds: no wounds Neuro General: patient oriented x3, tone normal and no meningeal signs Cranial nerves: Yes CN's II-XII intact bilaterally Gait exam (Neuro): Normal gait present Extrem General: Yes normal to inspection Course Course Course Narrative: 1251--on re-evaluation patient reports symptomatic improvement, lower lip swelling slightly improved. Not worse. > no respiratory involvement. Talking in complete sentences. Patient made appointment with stylist apprentice in October for follow-up Patient has bottle of prednisone already, does not need additional prescription Results discussed with patient including worrisome signs and symptoms and strict return precautions, and when to return to the emergency department. They verbalized understanding and feel safe for discharge at this time. Medications Administered Discontinued Medications Generic Name Dose Route Start Last Admin Trade Name Freq PRN Reason Stop Dose Admin Dexamethasone Sodium Phosphate 10 mg 09/02/23 11:34 09/02/23 12:06 Dexamethasone Sod Phosphate 10 Mg/Ml Vial IVPUSH 09/02/23 11:35 10 mg ONCE ONE Administration Diphenhydramine HCl 50 mg 09/02/23 11:34 09/02/23 12:06 Diphenhydramine Hcl 50 Mg/Ml Vial IM 09/02/23 11:35 50 mg ONCE ONE Administration Medical Decision Making Medical Decision Making [facility] Narrative: 68-year-old female with a past medical history of anxiety, IBS, hiatal hernia, 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 On exam vital signs stable, NAD, nontoxic appearing, lower lip swelling appreciated consistent with angioedema. Talking in complete sentences, no respiratory distress, no drooling, handling secretions, no stridor, lungs CTA. Concern for patient's recurrent hereditary angioedema. Low suspicion for allergic reaction, no evidence of respiratory compromise. Plan: P.o. Decadron, IM Benadryl, observe, stylist apprentice follow-up Please refer to course for remaining clinical decision making, interpretation of labs/imaging results, and discussions with consultants and/or family members. Differential Diagnosis Differential Diagnoses: The differential diagnosis associated with the presentation includes As above Admission/Observation Consideration of admission/observation: Escalation of care including admission/observation considered Independent Historian Clinical information obtained from an independent historian. History obtained from or confirmed by: Other (Sister) External Record Review External record reviewed: Inpatient record, Office record, Outpatient record, Prior outpatient labs, Prior outpatient radiology, Primary care record and Outside ED record Tests considered The following testing was considered but not selected: As above Chronic Conditions Patient?s care impacted by: Other Discharge Plan Discharge Clinical Impression: Angioedema Patient Disposition: Home, Self-Care Prescriptions: No Action latanoprost 0.005 % drops 1 drp ophthalmic (eye) BEDTIME hydrochlorothiazide 25 mg tablet 1 tab PO DAILY Zyrtec 10 mg Capsule 10 mg PO DAILY PRN (Reason: Allergy Symptoms) diphenhydramine HCl [Benadryl] 25 mg capsule 50 mg PO TID PRN (Reason: angioedema) 3 Days Qty: 30 0RF prednisone 20 mg tablet 40 mg PO DAILY 7 Days Qty: 14 0RF famotidine 20 mg tablet 20 mg PO BID 7 Days Qty: 14 0RF potassium chloride [Klor-Con M20] 20 mEq tablet,ER particles/crystals 40 meq PO ONCE 1 Days Qty: 2 0RF Print Language: Occitan
[2023-09-02 13:30] VITALS: BP 174/95; PULSE 69; RESP 16; TEMP 35.7; O2SAT 99
[2023-09-02 13:31] VITALS: BP 174/95; PULSE 69; RESP 16; TEMP 35.7; O2SAT 99
== END 2023-09-02 13:31 | disposition home or self-care (01) ==
PROVIDERS: Emergency Provider Emergency Medicine; PCP Internal Medicine
DX: D84.1 Defects in the complement system (principal); K13.0 Diseases of lips
CPT/HCPCS: 96372; 96374; 99283; 99284; J1100; J1200

== ENCOUNTER 2024-04-13 09:16 | Outpatient (REF) | payer MEDICARE, MEDICAID, SELFPAY ==
--- OUTSIDE RECORDS SUMMARY | 2024-04-13 10:00 | XMS_ITS | Patient Health Record ---
Author Organization [facility] Address [address] [place] [address] Care Team Providers Care Securities Consultant Name Role Phone Levi Manning MD Primary Care Provider Scott Mckenzie [phone] ALLERGIES Allergen (clinical drug ingredient) Drug/Non Drug Allergy documented on EMR Reaction Allergy Type Onset Date Status sulfacetamide Sulfacetamide Sodium Unknown Drug Allergy Active nuts (uncoded) Unknown Allergy Activ e dairy (uncoded) Unknown Allergy Acti ve Apple,pectin (uncoded) Unknown Allergy Active REASON FOR REFERRAL No Information MEDICATIONS Medication SIG (Take, Route, Frequency, Duration) Notes Start Date End Date Status Hyoscyamine Sulfate 0.125 MG 1-2 tablets Orally Q 6 hours prn abdominal bloating/cramps for 30 days 07/07/2013 Active Travatan Z 0.004 % 1 drop into affected eye in the evening Ophthalmic Once a day Active Lastacaft 0.25 % 1 drop into affected eye Ophthalmic prn Active Cetirizine HCl 10 MG 1 tablet Orally Once a day Active Triamcinolone Acetonide Active hydroCHLOROthiazide Active Benefiber Active Latanoprost Active ZyrTEC Active Benadryl Active Cimetidine 800 MG 1 tablet at bedtime Orally Once a day Not-Taking Hyoscyamine Sulfate 0.125 MG 1-2 tablets Orally Q 6 hours prn abdominal cramps, bloating, discomfort for 30 days 10/15/2013 Active SOCIAL HISTORY Sex Assigned At : Social History Observation Description Sex Assigned At Unknown PROBLEMS Problem Type ICD Code Onset Dates Problem Status W/U Status Risk SNOMED Code Notes Problem Encounter for screening for malignant neoplasm of colon (Z12.11) Active confirmed 655160188 Problem Pre-procedural examination (Z01.818) Active confirmed 270010388565170 Problem Irritable bowel syndrome, unspecified type (K58.9) Active confirmed [id number] Problem Diverticulosis of colon (K57.30) Active confirmed Diverticulosi s of colon (546852657) PLAN OF TREATMENT Future Test Test Name Order Date COLONOSCOPY 09/07/2020 Insurance Providers Payer Name Payer Address Payer Phone Subscriber Number Group Number Insured Name Patient Relationship to Insured Coverage Start Date Coverage End Date MED[place]ARE OF [place] [address] [place] [id number] JOAN ORTIZ Self - patient is the insured MEDICAID OF [employer] [address] [place] [address] [id number] JOAN ORTIZ Self - patient is the insured MEDICAL (GENERAL) HISTORY Medical History History ICD Code 07/26/2010 EGD-small hiatal hernia, normal duodenal biopsies, and mild gastritis but negative H. pylori Hypertension Denies HI,DM,CVA,Lung disease,renal dise ase Arthritis Colonoscopy in 07/2010-normal biopsies, without any sign of microscopic colitis--there were no polyps-there was some mild sigmoid diverticulosis and small internal hemorrhoids Bronchitis Eczema Irritable bowel syndrome Surgical History Surgery Date(Month/Year) Laparoscopic Cholecystectomy 2010 Cleft palate & nasal surgery Breast reduction
[2024-04-13 10:16] LABS: MANUAL DIFF FLAG NO
[2024-04-13 10:19] LABS: Basophils Absolute Auto 0.1 X10*3/uL (0.0-0.2); Basophils Percent Auto 0.7 % (0-2); Eosinophils Absolute Auto 0.2 X10*3/uL (0.0-0.4); Eosinophils Percent Auto 2.2 % (0-4); Hematocrit 36.8 % (37.0-47.0); Hemoglobin 12.2 g/dl (12.0-16.0); Imm Gran Abs Auto 0.03 X10*3/uL (0.00-0.03); Imm Gran Pct Auto 0.4 % (0.0-0.4); Lymphocytes Absolute Auto 1.9 X10*3/uL (1.2-4.9); Mean Corpuscular HGB Conc 33.2 g/dl (31.0-35.0); Mean Corpuscular Hemoglobin 29.7 pg (27.0-33.0); Mean Corpuscular Volume 89.5 fL (80.0-98.0); Monocytes Absolute Auto 0.5 X10*3/uL (0.1-1.2); Monocytes Percent Auto 7.3 % (2-11); Neutrophils Absolute Auto 4.7 x10*3/uL (2.0-8.3); Neutrophils Percent Auto 63.4 % (45-73); Platelet Count 245 X10*3/uL (160-400); Red Blood Count 4.11 X10*6/uL (4.20-5.50); Red Cell Distribution Width 13.2 % (11.0-16.0); White Blood Count 7.4 X10*3/uL (4.8-10.8)
[2024-04-13 10:53] LABS: Alanine Aminotransferase 31 U/L (0-31); Albumin Level 3.8 g/dL (3.5-5.0); Alkaline Phosphatase 119 U/L (39-117); Anion Gap 13 (12-20); Aspartate Amino Transferase 33 U/L (5-31); Bilirubin Total 0.5 mg/dL (0.0-1.0); Blood Urea Nitrogen 16 mg/dL (9-16); Calcium 9.2 mg/dL (8.4-10.2); Carbon Dioxide 28 mmol/L (22-29); Chloride 103 mmol/L (96-108); Cholesterol 207 mg/dL (<200); Estimated Glomerular Filt Rate > 60; Glucose Fasting 90 mg/dL (60-99); HDL Cholesterol 60 mg/dL (>40); LDL Cholesterol Calculated 133 mg/dL (<100); Potassium 4.1 mmol/L (3.3-5.1); Sodium 140 mmol/L (135-145); Total Protein 7.1 g/dL (6.5-8.0); Triglycerides 73 mg/dL (<150)
== END 2024-04-13 09:17 | disposition home or self-care (01) ==
LOC: HO.10HDL 09:16
PROVIDERS: Visit Provider Internal Medicine
DX: I10 Essential (primary) hypertension (principal); K21.9 Gastro-esophageal reflux disease without esophagitis; E78.00 Pure hypercholesterolemia, unspecified; N18.9 Chronic kidney disease, unspecified
CPT/HCPCS: 36415; 80053; 80061; 85025

== ENCOUNTER 2024-05-19 11:31 | Inpatient (IN) | payer MEDICARE, MEDICAID, SELFPAY ==
[2024-05-19] VITALS (7 sets, daily range): BP systolic 120–137; BP diastolic 60–88; PULSE 60–92; RESP 14–16; TEMP 36.3–36.6; O2SAT 97–99; BMI 25.4
--- NOTE | ~2024-05-19 | CT_ITS ---
EXAMINATION: CT ABDOMEN AND PELVIS WITH CONTRAST CLINICAL INFORMATION: Right lower quadrant pain and tenderness. COMPARISON: No prior available. Report from CT abdomen and pelvis 07/17/2015. TECHNIQUE: Multidetector volumetric images were obtained from the superior aspect of the liver through the pubic symphysis following administration 85 mL of Omnipaque 350 intravenous contrast. Sagittal and coronal reformatted images were obtained on the technologist's workstation. Oral contrast: No This CT examination was performed using dose optimization techniques as appropriate, variously including the following: *Automated exposure control *Adjustment of mA and/or kV according to patient size (this includes techniques or standardized protocols for targeted exams where dose is matched to indication/reason for exam; i.e. extremities or head) *Use of iterative reconstruction technique FINDINGS: LUNG BASES: There is cardiac enlargement. Minor atelectasis in the bilateral lung bases. Lung bases otherwise clear. Small type I hiatus hernia. LIVER, GALLBLADDER, AND BILIARY TREE: Liver demonstrates an oval low attenuating segment 3 lesion measuring 2.1 x 1.8 x 1.8 cm (series 3, image 18). This was described on prior exams dating back to 2016 and is consistent with a benign entity. Liver is otherwise normal. No intra or extrahepatic biliary dilatation. The gallbladder is surgically absent. There is small volume perihepatic ascites. PANCREAS: Mild fatty atrophy. Otherwise normal. SPLEEN: Normal in appearance. Small volume perisplenic ascites. ADRENAL GLANDS: Unremarkable. KIDNEYS AND URETERS: The kidneys are normal in size, shape, and attenuation. No hydronephrosis, hydroureter, or calculi seen. No perinephric stranding. BLADDER: Unremarkable. GASTROINTESTINAL TRACT: Small paraesophageal hiatus hernia. Stomach is decompressed. No gross abnormality. Duodenum appears normal. Segment of inflamed/thick walled small bowel in the left inferior abdomen, with associated hyperemia of the mesentery, and surrounding inflammatory changes. This is consistent with a segmental enteritis. There are small interloop ascites. The terminal ileum appears normal. There are no CT features of appendicitis. The appendix is normal. The colon is normal in course and caliber. The rectum appears normal. PERITONEUM: Small volume ascites. No free air. ABDOMINAL WALL: Fat-containing small left inguinal hernia. LYMPH NODES: None enlarged. VASCULAR: Mild atheromatous changes of the arterial vasculature. No aneurysm. PELVIC VISCERA: The uterus appears bicornuate. Adnexa are unremarkable. OSSEOUS STRUCTURES: No suspicious lytic or blastic bone lesions. Degenerative spondylosis and mild right convex scoliosis of the lumbar spine. Mild degenerative arthritis in both hip joints and SI joints. CT/CT abdomen pelvis w IV con IMPRESSION: 1. Segmental small bowel enteritis involving a segment of small bowel in the left inferior abdomen. Associated hyperemia and infiltrative changes in the small bowel mesentery. This could be infectious or inflammatory. Ischemia considered possible but less likely. 2. Small volume ascites within the peritoneal cavity. 3. Cardiomegaly. 4. Left hepatic lobe 2.1 cm oval lesion, described on prior exams dating back to 2016 and consistent with a benign entity. 5. Ancillary findings as discussed. Electronically signed by: Himanshu Hudson MD 05/19/2024 03:09 PM EDT
--- NOTE | 2024-05-19 12:02 | ED_ITS ---
HPI - Abdominal Pain General Chief Complaint: Abdominal Pain Stated Complaint: N/V lower abd pain x12hrs Time Seen by Provider: 05/19/24 11:38 Source: patient and EMS Mode of arrival: EMS Limitations: no limitations History of Present Illness ED Provider: Dr. Vasiliy Turk HPI narrative: 69-year-old female with a history of anxiety, hypoglycemia, arthritis, IBS, GERD, cleft palate, cholecystectomy who presents emergency department for evaluation of abdominal pain, nausea and vomiting. The patient states that yesterday at around 13:00 hours she ate some pizza. Later in the afternoon she developed heartburn , right upper quadrant and right flank pain. She states that proximally 12 hours prior to coming to the emergency department she developed nausea with 1 episode of vomiting. She had a soft stool but non diarrhea stool. She then developed pain around her umbilical area which she describes as a constant, waxing and waning sharp/dull pain which is 10/10 at its worst. This is a 1st episode of this type of pain Review of systems was positive for shaking chills, nonproductive cough. Review of systems was negative for chest pain, shortness of breath, dyspnea on exertion, frequency, urgency, dysuria, dark tarry stools or bloody stools., Related Data Home Medications ?Medication ?Instructions ?Recorded ?Confirmed cetirizine 10 mg capsule (Zyrtec) 10 mg PO DAILY PRN Allergy Symptoms 10/23/20 05/14/22 hydrochlorothiazide 25 mg tablet 1 tab PO DAILY 10/23/20 05/14/22 latanoprost 0.005 % eye drops 1 drp ophthalmic (eye) BEDTIME 10/23/20 05/14/22 Previous Rx's ?Medication ?Instructions ?Recorded diphenhydramine HCl 25 mg capsule 50 mg (2 x 25 mg) PO TID PRN 05/14/22 (Benadryl) angioedema 3 days #30 caps famotidine 20 mg tablet 20 mg PO BID 7 days #14 tabs 05/14/22 potassium chloride 20 mEq 40 meq (2 x 20 mEq) PO ONCE 1 day 05/14/22 tablet,extended #2 tabs release(part/cryst) (Klor-Con M) prednisone 20 mg tablet 40 mg (2 x 20 mg) PO DAILY 7 days 05/14/22 #14 tabs diphenhydramine HCl 25 mg capsule 25 mg PO TID PRN angioedema #14 09/02/23 (Benadryl) caps Allergies Allergy/AdvReac Type Severity Reaction Status Date / Time apple [APPLE] Allergy Severe FACIAL Verified 05/19/24 12:00 SWELLING lisinopril [LISINOPRIL] Allergy Severe FACIAL Verified 05/19/24 12:00 SWELLING metoprolol [METOPROLOL] Allergy Severe FACIAL Verified 05/19/24 12:00 SWELLING, facial swelling with any bp med nut - unspecified [NUTS] Allergy Severe Facial Verified 05/19/24 12:00 Swelling pectin [PECTIN] Allergy Severe Facial Verified 05/19/24 12:00 Swelling triamterene [TRIAMTERENE] Allergy Severe FACIAL Verified 05/19/24 12:00 SWELLING DAIRY PRODUCTS Allergy Severe Facial Uncoded 05/19/24 12:00 Swelling Review of Systems Review of Systems Yes all other systems are reviewed and are negative [facility] Past Medical History [facility] Narrative: Social history: She denies tobacco, alcohol and drug use Medical History Anxiety Hx of hypoglycemia Arthritis IBS (irritable bowel syndrome) Glaucoma Hx of cardiac murmur Heartburn Hiatal hernia Hx of cleft palate with cleft lip Surgical History Hx of cholecystectomy Hx of colonoscopy History of esophagogastroduodenoscopy (EGD) Hx of bilateral breast reduction surgery H/O rhinoplasty Social History Social History Alcohol intake: never Patient Tobacco Use Status: Never used Tobacco Smoked in Last 30 Days: No Use of substances other than those prescribed or required for medical reasons: No Advance Directives: No Advance Directives Information Provided: Yes Do you have a plan to hurt others: No Plan Physical Exam ED Vital Signs: Vital Signs - 24 hr 05/19/24 13:07 05/19/24 16:18 05/19/24 17:48 Temperature 97.9 F 97.6 F Pulse Rate 74 67 Respiratory Rate 16 15 14 Blood Pressure 134/83 128/76 Pulse Oximetry 98 97 Oxygen Delivery Method Room Air Room Air BMI result Body Mass Index 25.4 Exam: General: Awake, alert in no distress Head: Normocephalic, atraumatic EENT: PERRL, Lids normal, sclera normal, conjunctiva normal, nose normal , ears normal, throat without erythema or exudates Neck: Supple, no adenopathy Lung: breath sounds symmetric, no wheezing, rales or rhonchi Chest: symmetric movement, nontender Heart: regular rate and rhythm, normal S1, S2 no murmurs or rubs Abdomen: soft, no right upper quadrant tenderness, moderate to severe right lower quadrant tenderness, mild diffuse tenderness, nondistended, normal bowel sounds Back: no vertebral tenderness, no CVAT Extremities: no deformities, moves all extremities symmetrically Neuro: Awake, alert, oriented, normal speech, cranial nerves intact, moves all extremities symmetrically Psych: Pleasant, cooperative Procedures Procedure Narrative Procedure Narrative: I was asked to help assist with IV access. Using ultrasound guidance I was able to place a 2-1/2 inch, 20 gauge IV in the left upper arm. There was good blood return in the line flushed well postprocedure. Medical Decision Making Medical Decision Making MDM Narrative: 69-year-old female with a history of anxiety, hypoglycemia, arthritis, IBS, GERD, cleft palate, cholecystectomy who presents emergency department for evaluation of abdominal pain, nausea and vomiting. Patient ate pizza yesterday at 13:00 hours and shortly after eating pizza then later in the afternoon she developed right upper quadrant and right flank pain. 12 hours prior to coming to emergency department she developed periumbilical pain which was a constant, sharp/dull pain which waxed and waned in intensity and was 10/10. Patient had 1 episode of vomiting and she had 1 episode of soft stool. This is a 1st episode of this type of pain. She did have shaking chills but no fever. She denied frequency, urgency, dysuria, dark tarry stools or bloody stools. Physical examination did reveal mild diffuse tenderness, no right upper quadrant tenderness and moderate to severe right lower quadrant tenderness. Differential diagnosis: ?Includes but is not limited to pancreatitis, diverticulitis, appendicitis, viral syndrome, COVID-19, influenza, RSV, viral syndrome, anemia, electrolyte abnormalities Course 12:13 The patient was treated with Toradol 15 mg IV, Zofran 4 mg IV and normal saline x1 L. I did order laboratory evaluation and CT scan of the abdomen pelvis with IV contrast. 17:10 My independent interpretation patient's laboratory evaluation as follows: WBC elevated 12,100. H&H was normal 13.3 and 38.6. CMP revealed an elevated BUN of 17, elevated AST of 35. Lipase was normal. COVID-19, influenza and RSV tests were negative. 16:12 I did discuss the patient's presentation with our covering surgeon, Dr. Sigala and he was able to review the CT scan. He felt that the CAT scan was consistent with enteritis and recommended admission with GI consult. I did discuss the patient was presentation with the covering hospitalist, Dr. Yost and the patient will be admitted to the hospitalist service for further treatment. Admission/Observation Consideration of admission/observation: Escalation of care including admission/observation considered (Yes) Consult Healthcare Provider Management of the patient was discussed with: Hospitalist and [employer] (General surgeon) Lab Data MDM Lab Attestation statement: I reviewed the patient's lab results. 05/19/24 12:29 05/19/24 12:29 Labs: Lab Results 05/19/24 05/19/24 05/19/24 Range/Units 12:29 13:15 17:44 WBC 12.1 H (4.8-10.8) X10*3/uL RBC 4.45 (4.20-5.50) X10*6/uL Hgb 13.3 (12.0-16.0) g/dl Hct 38.6 (37.0-47.0) % MCV 86.7 (80.0-98.0) fL MCH 29.9 (27.0-33.0) pg MCHC 34.5 (31.0-35.0) g/dl RDW 13.2 (11.0-16.0) % Plt Count 252 (160-400) X10*3/uL MPV 11.6 (9.4-12.3) fL Immature Gran % (Auto) 0.4 (0.0-0.4) % Neut % (Auto) 90.7 H (45-73) % Lymph % (Auto) 6.8 L (20-40) % Trigg % (Auto) 2.0 (2-11) % Eos % (Auto) 0.0 (0-4) % Baso % (Auto) 0.1 (0-2) % Lymph # (Auto) 0.8 L (1.2-4.9) X10*3/uL [place] # (Auto) 0.2 (0.1-1.2) X10*3/uL Eos # (Auto) 0.0 (0.0-0.4) X10*3/uL Baso # (Auto) 0.0 (0.0-0.2) X10*3/uL Abs Immat Gran (auto) 0.05 H (0.00-0.03) X10*3/uL Absolute Neuts (auto) 11.0 H (2.0-8.3) x10*3/uL Absolute Nucleated RBC 0.000 (0.0-0.012) X10*3/uL Nucleated RBC % (auto) 0.0 (0.0-0.2) /100WBC Smear Tech's Comments VERIFIED Hold Purple Top SEE NOTE Sodium 137 (135-145) mmol/L Potassium 3.4 (3.3-5.1) mmol/L Chloride 103 (96-108) mmol/L Carbon Dioxide 27 (22-29) mmol/L Anion Gap 10 L (12-20) BUN 17 H (9-16) mg/dL Creatinine 0.87 (0.5-1.4) mg/dL Estim Creat Clear Calc 56.9 Estimated GFR > 60 Random Glucose 115 (60-115) mg/dL Lactic Acid 1.0 (0.5-2.0) mmol/L Calcium 8.8 (8.4-10.2) mg/dL Magnesium 1.8 (1.6-2.6) mg/dL Total Bilirubin 0.6 (0.0-1.0) mg/dL Direct Bilirubin 0.2 (0.0-0.5) mg/dL AST 35 H (5-31) U/L ALT 30 (0-31) U/L Alkaline Phosphatase 114 (39-117) U/L Total Protein 6.6 (6.5-8.0) g/dL Albumin 3.7 (3.5-5.0) g/dL Lipase 18 (8-78) U/L Influenza Type A (PCR) NEGATIVE (Negative) Influenza Type B (PCR) NEGATIVE (Negative) RSV RNA Qual (PCR) NEGATIVE (Negative) SARS-CoV-2 RNA (RT-PCR) NEGATIVE (Negative) Radiology Impression Discussion of test interpretation with radiology: I have reviewed the radiologist's reading. Radiologist Impression: EXAMINATION: CT ABDOMEN AND PELVIS WITH CONTRAST CLINICAL INFORMATION: Right lower quadrant pain and tenderness. COMPARISON: No prior available. Report from CT abdomen and pelvis 07/17/2015. FINDINGS: LUNG BASES: There is cardiac enlargement. Minor atelectasis in the bilateral lung bases. Lung bases otherwise clear. Small type I hiatus hernia. LIVER, GALLBLADDER, AND BILIARY TREE: Liver demonstrates an oval low attenuating segment 3 lesion measuring 2.1 x 1.8 x 1.8 cm (series 3, image 18). This was described on prior exams dating back to 2016 and is consistent with a benign entity. Liver is otherwise normal. No intra or extrahepatic biliary dilatation. The gallbladder is surgically absent. There is small volume perihepatic ascites. PANCREAS: Mild fatty atrophy. Otherwise normal. SPLEEN: Normal in appearance. Small volume perisplenic ascites. ADRENAL GLANDS: Unremarkable. KIDNEYS AND URETERS: The kidneys are normal in size, shape, and attenuation. No hydronephrosis, hydroureter, or calculi seen. No perinephric stranding. BLADDER: Unremarkable. GASTROINTESTINAL TRACT: Small paraesophageal hiatus hernia. Stomach is decompressed. No gross abnormality. Duodenum appears normal. Segment of inflamed/thick walled small bowel in the left inferior abdomen, with associated hyperemia of the mesentery, and surrounding inflammatory changes. This is consistent with a segmental enteritis. There are small interloop ascites. The terminal ileum appears normal. There are no CT features of appendicitis. The appendix is normal. The colon is normal in course and caliber. The rectum appears normal. PERITONEUM: Small volume ascites. No free air. ABDOMINAL WALL: Fat-containing small left inguinal hernia. LYMPH NODES: None enlarged. VASCULAR: Mild atheromatous changes of the arterial vasculature. No aneurysm. PELVIC VISCERA: The uterus appears bicornuate. Adnexa are unremarkable. OSSEOUS STRUCTURES: No suspicious lytic or blastic bone lesions. Degenerative spondylosis and mild right convex scoliosis of the lumbar spine. Mild degenerative arthritis in both hip joints and SI joints. CT/CT abdomen pelvis w IV con IMPRESSION: 1. Segmental small bowel enteritis involving a segment of small bowel in the left inferior abdomen. Associated hyperemia and infiltrative changes in the small bowel mesentery. This could be infectious or inflammatory. Ischemia considered possible but less likely. 2. Small volume ascites within the peritoneal cavity. 3. Cardiomegaly. 4. Left hepatic lobe 2.1 cm oval lesion, described on prior exams dating back to 2015 and consistent with a benign entity. 5. Ancillary findings as discussed. Electronically signed by: Himanshu Hudson MD 05/19/2024 03:09 PM EDT Independent Historian Clinical information obtained from an independent historian. History obtained from or confirmed by: EMS and Other (Sister who is a retired physician) Chronic Conditions Patient?s care impacted by: Hypertension Medications Administered Discontinued Medications Generic Name Dose Route Start Last Admin Trade Name Freq PRN Reason Stop Dose Admin Sodium Chloride 1,000 mls @ 999 mls/hr 05/19/24 12:01 05/19/24 15:58 Ns IV 05/19/24 13:01 Infused .Q1H1M STA Infusion Piperacillin Sod/Tazobactam 100 mls @ 200 mls/hr 05/19/24 17:30 05/19/24 17:50 Sod 4.5 gm/ Sodium Chloride IV 05/19/24 17:59 200 mls/hr ONCE ONE Administration Iohexol 100 ml 05/19/24 14:40 05/19/24 14:41 Iohexol 350 Mg/Ml 100 Ml Infus..Btl IV 05/19/24 14:41 85 ml ONCE ONE Administration Ketorolac Tromethamine 15 mg 05/19/24 12:01 05/19/24 13:20 Ketorolac Tromethamine 15 Mg/Ml Vial IVPUSH 05/19/24 12:02 15 mg ONCE STA Administration Morphine Sulfate 4 mg 05/19/24 17:30 05/19/24 17:48 Morphine Sulfate 4 Mg/Ml Cartridge IVPUSH 05/19/24 17:31 4 mg ONCE STA Administration Protocol Ondansetron HCl 4 mg 05/19/24 12:01 05/19/24 13:21 Ondansetron Hcl 4 Mg/2 Ml Vial IVPUSH 05/19/24 12:02 4 mg ONCE ONE Administration Ondansetron HCl 4 mg 05/19/24 17:30 05/19/24 17:47 Ondansetron Hcl 4 Mg/2 Ml Vial IVPUSH 05/19/24 17:31 4 mg ONCE ONE Administration Discharge Plan Discharge Patient Disposition: Admitted As Inpatient Prescriptions: No Action latanoprost 0.005 % drops 1 drp ophthalmic (eye) BEDTIME hydrochlorothiazide 25 mg tablet 1 tab PO DAILY Zyrtec 10 mg Capsule 10 mg PO DAILY PRN (Reason: Allergy Symptoms) diphenhydramine HCl [Benadryl] 25 mg capsule 50 mg PO TID PRN (Reason: angioedema) 3 Days Qty: 30 0RF prednisone 20 mg tablet 40 mg PO DAILY 7 Days Qty: 14 0RF famotidine 20 mg tablet 20 mg PO BID 7 Days Qty: 14 0RF potassium chloride [Klor-Con M20] 20 mEq tablet,ER particles/crystals 40 meq PO ONCE 1 Days Qty: 2 0RF diphenhydramine HCl [Benadryl] 25 mg capsule 25 mg PO TID PRN (Reason: angioedema) Qty: 14 0RF Print Language: Estonian
[2024-05-19] MEDS: Ketorolac Tromethamine 15 MG/ML VIAL IVPUSH (13:20)
[2024-05-19] MEDS: 0.9 % Sodium Chloride 1,000 ML 999 ML IV (13:20)
[2024-05-19 13:21] LABS: Influenza A PCR NEGATIVE (Negative); Influenza B PCR NEGATIVE (Negative); Resp Syncy Virus RNA Qual PCR NEGATIVE (Negative); SARS COV2 PCR INHOUSE NEGATIVE (Negative)
[2024-05-19] MEDS: ondansetron HCL 4 MG/2 ML VIAL IVPUSH ×2 (13:21→17:47)
[2024-05-19 13:27] LABS: Basophils Percent Auto 0.1 % (0-2); Hematocrit 38.6 % (37.0-47.0); Hemoglobin 13.3 g/dl (12.0-16.0); Imm Gran Abs Auto 0.05 X10*3/uL (0.00-0.03); Imm Gran Pct Auto 0.4 % (0.0-0.4); Lymphocytes Absolute Auto 0.8 X10*3/uL (1.2-4.9); Lymphocytes Percent Auto 6.8 % (20-40); MANUAL DIFF FLAG SCAN; Mean Corpuscular HGB Conc 34.5 g/dl (31.0-35.0); Mean Corpuscular Hemoglobin 29.9 pg (27.0-33.0); Mean Corpuscular Volume 86.7 fL (80.0-98.0); Mean Platelet Volume 11.6 fL (9.4-12.3); Monocytes Absolute Auto 0.2 X10*3/uL (0.1-1.2); Neutrophils Percent Auto 90.7 % (45-73); Platelet Count 252 X10*3/uL (160-400); Red Blood Count 4.45 X10*6/uL (4.20-5.50); Red Cell Distribution Width 13.2 % (11.0-16.0); SCAN SMEAR FLAG 1; White Blood Count 12.1 X10*3/uL (4.8-10.8)
[2024-05-19 13:49] LABS: Alanine Aminotransferase 30 U/L (0-31); Albumin Level 3.7 g/dL (3.5-5.0); Alkaline Phosphatase 114 U/L (39-117); Anion Gap 10 (12-20); Aspartate Amino Transferase 35 U/L (5-31); Bilirubin Direct 0.2 mg/dL (0.0-0.5); Bilirubin Total 0.6 mg/dL (0.0-1.0); Blood Urea Nitrogen 17 mg/dL (9-16); Calcium 8.8 mg/dL (8.4-10.2); Carbon Dioxide 27 mmol/L (22-29); Chloride 103 mmol/L (96-108); Creatinine Clr Calc Pharmacy 56.9; Estimated Glomerular Filt Rate > 60; Glucose Random 115 mg/dL (60-115); Lipase 18 U/L (8-78); Magnesium 1.8 mg/dL (1.6-2.6); Potassium 3.4 mmol/L (3.3-5.1); Sodium 137 mmol/L (135-145); Total Protein 6.6 g/dL (6.5-8.0)
[2024-05-19 13:50] LABS: SLIDE REVIEW VERIFIED
[2024-05-19] MEDS: iohexoL 350 MG/ML 100 ML INFUS..BTL IV (14:41)
[2024-05-19] MEDS: Morphine Sulfate 4 MG/ML CARTRIDGE IVPUSH (17:48)
[2024-05-19] MEDS: Piperacillin Sodium/Tazobactam 4.5 GM in 0.9 % Sodium Chloride 100 ML IV (17:50)
[2024-05-19 18:21] LABS: Appearance Urine Clear; Color Urine Yellow; Glucose Urine UA Negative (Negative); Leukocyte Esterase Urine Trace (Negative); Nitrite Urine Negative (Negative); Specific Gravity - Urine >= 1.030 (1.005-1.025); UMIC TRIGGER UACC YES; Urine Blood Negative (Negative); Urine Ketones Negative (Negative); Urine Protein Negative (Neg-Trace)
[2024-05-19 18:24] LABS: Bacteria Urine None Seen (None Seen); Hyaline Casts Urine 0-2 /LPF (0-2); RBC Urine 0-2 /HPF (0-2); UACC Culture Trigger YES
[2024-05-19] MEDS: 0.9 % Sodium Chloride 1,000 ML 125 ML IV (18:56)
--- NOTE | 2024-05-19 19:33 | PHA.MEDREC ---
Addendum entered by Milton Cuevas urszula 05/19/24 20:05: Med rec reviewed Original Note: Pharmacy Consult ? Medication Reconciliation Pharmacy has completed the medication reconciliation. Spoke with patient to confirm.
--- NOTE | 2024-05-19 22:17 | PM.IMHP ---
History of Present Illness Date of Service: 05/19/24 Chief Complaint: abd pain 69-year-old female with a past medical history of IBS, glaucoma, hiatal hernia, left palate, anxiety, arthritis, presented to the hospital with a chief complaint of abdominal pain. Patient reports that around noon time she ate pizza followed me she developed heartburn and then started develop abdominal pain more so in the right upper quadrant. Also had associated nausea and vomiting. Denied any diarrhea. Reports her abdominal pain is better after she got pain medications in the ER. Denies any chest pain or palpitations. Denies any fevers and chills. Denies any urinary symptoms. Review of all other systems is negative except mentioned above ER course: Per ER team, patient noted to have diffuse abdominal tenderness; no guarding no rigidity. CT abdomen pelvis showed small-bowel enteritis, also noted to have hyperemia and infiltrative changes in the small bowel mesentery could be infectious versus inflammatory. Small volume ascites. Cardiomegaly. And known left hepatic lobe lesion. ER physician discussed with general surgery who mentioned no acute surgical intervention, recommended gastroenterology consult. [facility] Medical History Anxiety Hx of hypoglycemia Arthritis IBS (irritable bowel syndrome) Glaucoma Hx of cardiac murmur Heartburn Hiatal hernia Hx of cleft palate with cleft lip Surgical History Hx of cholecystectomy Hx of colonoscopy History of esophagogastroduodenoscopy (EGD) Hx of bilateral breast reduction surgery H/O rhinoplasty Social History Alcohol intake: never Patient Tobacco Use Status: Never used Tobacco Smoked in Last 30 Days: No Use of substances other than those prescribed or required for medical reasons: No Advance Directives: No Advance Directives Information Provided: Yes Do you have a plan to hurt others: No Plan Meds Allergies Allergy/AdvReac Type Severity Reaction Status Date / Time apple [APPLE] Allergy Severe FACIAL Verified 05/19/24 12:00 SWELLING lisinopril [LISINOPRIL] Allergy Severe FACIAL Verified 05/19/24 12:00 SWELLING metoprolol [METOPROLOL] Allergy Severe FACIAL Verified 05/19/24 12:00 SWELLING, facial swelling with any bp med nut - unspecified [NUTS] Allergy Severe Facial Verified 05/19/24 12:00 Swelling pectin [PECTIN] Allergy Severe Facial Verified 05/19/24 12:00 Swelling triamterene [TRIAMTERENE] Allergy Severe FACIAL Verified 05/19/24 12:00 SWELLING DAIRY PRODUCTS Allergy Severe Facial Uncoded 05/19/24 12:00 Swelling Active Medications: Current Medications Acetaminophen (Acetaminophen 325 Mg Tablet) 650 mg PO Q6H PRN PRN Reason: Pain, Mild 1-3,fever,headache Calcium Carbonate (Calcium Carbonate 750 Mg Tab.Chew) 750 mg PO Q4H PRN PRN Reason: Heartburn Sodium Chloride (Ns) 1,000 mls @ 125 mls/hr IV .Q8H STA Stop: 05/20/24 02:18 Last Admin: 05/19/24 18:56 Dose: 125 mls/hr Dextrose/Sodium Chloride (D51/2ns) 1,000 mls @ 50 mls/hr IVCONT .Q20H ROLDAN Piperacillin Sod/Tazobactam (Sod 3.375 gm/ Sodium Chloride) 50 mls @ 100 mls/hr IV Q6H ROLDAN Latanoprost (Latanoprost 0.005 % Ophth Staci 2.5 Ml Drops) 1 drop EYE-BOTH BEDTIME ROLDAN Magnesium Hydroxide (Milk Of Magnesia 30 Ml Oral.Susp) 30 ml PO DAILY PRN PRN Reason: Constipation Melatonin (Melatonin 3 Mg Tablet) 6 mg PO BEDTIME PRN PRN Reason: Insomnia Montelukast Sodium (Montelukast Sodium 10 Mg Tablet) 10 mg PO DAILY ROLDAN Sodium Chloride (0.9 % Sodium Chloride Flush 3 Ml Syringe) 3 ml IVFLUSH QSHIFT REPLACED BY [facility] Home Medications ?Medication ?Instructions ?Recorded ?Confirmed ?Last Taken ?Type cetirizine 10 mg capsule (Zyrtec) 10 mg PO DAILY PRN Allergy Symptoms 10/23/20 05/19/24 Unknown History hydrochlorothiazide 25 mg tablet 1 tab PO DAILY 10/23/20 05/19/24 05/19/24 History latanoprost 0.005 % eye drops 1 drp ophthalmic (eye) BEDTIME 10/23/20 05/19/24 Unknown History albuterol sulfate 90 mcg/actuation 2 puff inhalation Q4-6H PRN 05/19/24 05/19/24 Unknown History aerosol inhaler (Ventolin HFA) Shortness Of Breath Or Wheezing cholecalciferol (vitamin D3) 25 25 mcg PO DAILY 05/19/24 05/19/24 05/19/24 History mcg (1,000 unit) capsule diphenhydramine HCl 25 mg capsule 50 mg PO DAILY PRN angioedema 05/19/24 05/19/24 Unknown History (Benadryl) famotidine 20 mg tablet 20 mg PO DAILY PRN Heartburn 05/19/24 05/19/24 Unknown History fluticasone propionate 50 2 spray intranasal DAILY 05/19/24 05/19/24 05/19/24 History mcg/actuation nasal spray,suspension montelukast 10 mg tablet 10 mg PO DAILY 05/19/24 05/19/24 05/19/24 History Physical Exam Vital Signs and Narrative: Vital Signs: Last Vital Signs Temp 97.7 F 05/19/24 20:38 Pulse 60 05/19/24 20:38 Resp 15 05/19/24 20:38 BP 120/62 05/19/24 20:38 Pulse Ox 97 05/19/24 20:38 O2 Del Method Room Air 05/19/24 20:38 BMI result Body Mass Index 25.4 Results Labs 05/19/24 12:29 05/19/24 12:29 Labs: Laboratory Results - last 24 hr 05/19/24 05/19/24 05/19/24 12:29 13:15 17:44 MCV 86.7 MCH 29.9 MCHC 34.5 RDW 13.2 Plt Count 252 MPV 11.6 Immature Gran % (Auto) 0.4 Neut % (Auto) 90.7 H Lymph % (Auto) 6.8 L [place] % (Auto) 2.0 Eos % (Auto) 0.0 Baso % (Auto) 0.1 Lymph # (Auto) 0.8 L [place] # (Auto) 0.2 Eos # (Auto) 0.0 Baso # (Auto) 0.0 Abs Immat Gran (auto) 0.05 H Absolute Neuts (auto) 11.0 H Absolute Nucleated RBC 0.000 Nucleated RBC % (auto) 0.0 Smear Tech's Comments VERIFIED Hold Purple Top SEE NOTE Anion Gap 10 L Estim Creat Clear Calc 56.9 Estimated GFR > 60 Random Glucose 115 Lactic Acid 1.0 Calcium 8.8 Magnesium 1.8 Total Bilirubin 0.6 Direct Bilirubin 0.2 AST 35 H ALT 30 Alkaline Phosphatase 114 Total Protein 6.6 Albumin 3.7 Lipase 18 Urine Color Urine Appearance Urine pH Ur Specific [place] Urine Protein Urine Glucose (UA) Urine Ketones Urine Blood Urine Nitrite Ur Leukocyte Esterase Urine RBC Urine WBC Ur Squamous Epith Cells Urine Bacteria Hyaline Casts Influenza Type A (PCR) NEGATIVE Influenza Type B (PCR) NEGATIVE RSV RNA Qual (PCR) NEGATIVE SARS-CoV-2 RNA (RT-PCR) NEGATIVE 05/19/24 18:12 MCV MCH MCHC RDW Plt Count MPV Immature Gran % (Auto) Neut % (Auto) Lymph % (Auto) [place] % (Auto) Eos % (Auto) Baso % (Auto) Lymph # (Auto) [place] # (Auto) Eos # (Auto) Baso # (Auto) Abs Immat Gran (auto) Absolute Neuts (auto) Absolute Nucleated RBC Nucleated RBC % (auto) Smear Tech's Comments Hold Purple Top Anion Gap Estim Creat Clear Calc Estimated GFR Random Glucose Lactic Acid Calcium Magnesium Total Bilirubin Direct Bilirubin AST ALT Alkaline Phosphatase Total Protein Albumin Lipase Urine Color Yellow Urine Appearance Clear Urine pH 7.0 Ur Specific [place] >= 1.030 H Urine Protein Negative Urine Glucose (UA) Negative Urine Ketones Negative Urine Blood Negative Urine Nitrite Negative Ur Leukocyte Esterase Trace H Urine RBC 0-2 Urine WBC 6-10 H Ur Squamous Epith Cells 6-10 Urine Bacteria None Seen Hyaline Casts 0-2 Influenza Type A (PCR) Influenza Type B (PCR) RSV RNA Qual (PCR) SARS-CoV-2 RNA (RT-PCR) Imaging Radiologist's Impressions: Impressions Abdomen/Pelvis CT 05/19/24 14:34 IMPRESSION: 1. Segmental small bowel enteritis involving a segment of small bowel in the left inferior abdomen. Associated hyperemia and infiltrative changes in the small bowel mesentery. This could be infectious or inflammatory. Ischemia considered possible but less likely. 2. Small volume ascites within the peritoneal cavity. 3. Cardiomegaly. 4. Left hepatic lobe 2.1 cm oval lesion, described on prior exams dating back to 2016 and consistent with a benign entity. 5. Ancillary findings as discussed. Electronically signed by: Himanshu Hudson MD 05/19/2024 03:09 PM EDT Assessment and Plan (1) Enteritis: Status: Acute Plan 69-year-old female with a past medical history of IBS, glaucoma, hiatal hernia, left palate, anxiety, arthritis, presented to the hospital with a chief complaint of abdominal pain. Admitted for following Enteritis: Supportive care NPO Gentle IV fluids Empirically covered with Zosyn Mesenteric infiltration: Infectious versus inflammatory. General surgery mentioned no acute surgical intervention. GI consulted Glaucoma: Continue home eye drops DVT prophylaxis: SubQ heparin Code status: Full code Quality Stroke Does the patient have a stroke diagnosis?: No VTE Prior VTE?: No VTE Risk Level:: Medical - moderate - high VTE Device Contraindication: Treatment Not Indicated VTE Drug Contraindication: N/A - Med Ordered
[2024-05-19] MEDS: Dextrose 5 % and 0.45 % NaCl 1,000 ML 50 ML IVCONT (23:16)
[2024-05-19] MEDS: Piperacillin Sodium/Tazobactam 3.375 GM in 0.9 % Sodium Chloride 50 ML IV (23:52)
[2024-05-19] MEDS: Heparin Sodium,Porcine 5,000 UNIT/ML VIAL 5000 UNIT SUBCUT (23:52)
[2024-05-20] VITALS (13 sets, daily range): BP systolic 114–173; BP diastolic 56–86; PULSE 55–66; RESP 12–20; TEMP 36.3–37.1; O2SAT 97–100
--- NOTE | 2024-05-20 01:32 | PC.NURSE ---
This RN assumed care at 23:30 from Rn Marlen, pt reposition, medicated per apr, bedside commode emptied and took vitals.
[2024-05-20] MEDS: HYDROmorphone HCl 0.5 MG/0.5 ML SYRINGE IVPUSH (04:30)
--- NOTE | 2024-05-20 04:32 | PC.NURSE ---
medicated per mar for pain management.
[2024-05-20] MEDS: 0.9 % Sodium Chloride Flush 3 ML SYRINGE IVFLUSH ×2 (05:36→21:48)
[2024-05-20] MEDS: Piperacillin Sodium/Tazobactam 3.375 GM in 0.9 % Sodium Chloride 50 ML IV (05:37)
--- NOTE | 2024-05-20 05:43 | PC.NURSE ---
PT assisted to commode, medicated for nausea, medicated per apr, assisted in providing green sponge and water to moisten her lips,
[2024-05-20] MEDS: ondansetron HCL 4 MG/2 ML VIAL IVPUSH (05:54)
[2024-05-20] MEDS: Heparin Sodium,Porcine 5,000 UNIT/ML VIAL 5000 UNIT SUBCUT ×3 (06:07→21:45)
[2024-05-20 06:26] LABS: Alanine Aminotransferase 156 U/L (0-31); Anion Gap 13 (12-20); Aspartate Amino Transferase 279 U/L (5-31); Bilirubin Total 1.6 mg/dL (0.0-1.0); Blood Urea Nitrogen 19 mg/dL (9-16); Carbon Dioxide 22 mmol/L (22-29); Chloride 107 mmol/L (96-108); Creatinine Clr Calc Pharmacy 45.4; Estimated Glomerular Filt Rate 50; Glucose Random 96 mg/dL (60-115); Potassium 3.7 mmol/L (3.3-5.1); Sodium 138 mmol/L (135-145)
[2024-05-20 06:31] LABS: Alkaline Phosphatase 131 U/L (39-117)
--- NOTE | 2024-05-20 08:48 | PC.NURSE ---
resumed care of patient at 0700, she was currently resting comfortably in bed, MD at bedside around 0830, pt discussing with him her concerns of allergies to meds and food, diet advancement also brought up by provider but pt was hesitant. Call estevez within reach at this time, clear liquid tray brought to bedside
[2024-05-20] MEDS: Montelukast Sodium 10 MG TABLET PO (08:52)
--- NOTE | 2024-05-20 11:19 | MHC.CM.PN ---
CM met with Patient at bedside and addressed IMM with her, providing Patient with the original and a copy has been placed on the chart. Patient lives alone in an apartment and she uses a cane to assist with mobility. Patient has a [facility] Homemaker and home/resume said services is the goal; CM has initiated and will follow for dc planning. PCP is Dr. Ivette Baca and Sister/HCP/Dottie will transport to home at dc.
--- NOTE | 2024-05-20 11:53 | P.PNIM_ITS ---
Subjective Subjective Date of Service: 05/20/24 Interval History: abd pain Physical Exam 2 Vital Signs: Vital Signs: Last Vital Signs Temp 97.7 F 05/20/24 05:15 Pulse 65 05/20/24 05:15 Resp 14 05/20/24 05:15 BP 141/79 H 05/20/24 05:15 Pulse Ox 97 05/20/24 05:15 O2 Del Method Room Air 05/20/24 05:15 BMI result Body Mass Index 25.4 General: AO X 3, no acute distress Resp: CTA bilateral, no accessory muscles used CVS: S1,S2,RRR GI: soft, tender, non distended Neuro: motor grossly intact, alert Psych: appropriate affect, appropriate insight no facial swelling Objective Data Active Medications Acetaminophen (Acetaminophen 325 Mg Tablet) 650 mg PO Q6H PRN PRN Reason: Pain, Mild 1-3,fever,headache Calcium Carbonate (Calcium Carbonate 750 Mg Tab.Chew) 750 mg PO Q4H PRN PRN Reason: Heartburn Diphenhydramine HCl (Diphenhydramine Hcl 50 Mg/Ml Vial) 25 mg IVPUSH Q6H PRN PRN Reason: abdominal discomfort Heparin Sodium (Porcine) (Heparin Sodium,Porcine 5,000 Unit/Ml Vial) 5,000 unit SUBCUT Q8H [facility] Last Admin: 05/20/24 06:07 Dose: 5,000 unit Documented By: AYAAN Hydromorphone HCl (Hydromorphone Hcl 0.5 Mg/0.5 Ml Syringe) 0.5 mg IVPUSH Q4H PRN; Protocol PRN Reason: Breakthrough Pain Last Admin: 05/20/24 04:30 Dose: 0.5 mg Documented By: AYAAN Dextrose/Sodium Chloride (D51/2ns) 1,000 mls @ 50 mls/hr IVCONT .Q20H [facility] Last Admin: 05/19/24 23:16 Dose: 50 mls/hr Documented By: NYASIA Piperacillin Sod/Tazobactam (Sod 3.375 gm/ Sodium Chloride) 50 mls @ 100 mls/hr IV Q6H [facility] Last Infusion: 05/20/24 08:21 Dose: Infused Documented By: LESLIE Latanoprost (Latanoprost 0.005 % Ophth Staci 2.5 Ml Drops) 1 drop EYE-BOTH BEDTIME [facility] Magnesium Hydroxide (Milk Of Magnesia 30 Ml Oral.Susp) 30 ml PO DAILY PRN PRN Reason: Constipation Melatonin (Melatonin 3 Mg Tablet) 6 mg PO BEDTIME PRN PRN Reason: Insomnia Montelukast Sodium (Montelukast Sodium 10 Mg Tablet) 10 mg PO DAILY [facility] Last Admin: 05/20/24 08:52 Dose: 10 mg Documented By: LESLIE Sodium Chloride (0.9 % Sodium Chloride Flush 3 Ml Syringe) 3 ml IVFLUSH QSHIFT [facility] Last Admin: 05/20/24 08:53 Dose: Not Given Documented By: LESLIE Non-Admin Reason: IV Running Labs 05/19/24 12:29 05/20/24 05:12 Labs: Laboratory Results - last 24 hr 05/19/24 05/19/24 05/19/24 12:29 13:15 17:44 MCV 86.7 MCH 29.9 MCHC 34.5 RDW 13.2 Plt Count 252 MPV 11.6 Immature Gran % (Auto) 0.4 Neut % (Auto) 90.7 H Lymph % (Auto) 6.8 L [place] % (Auto) 2.0 Eos % (Auto) 0.0 Baso % (Auto) 0.1 Lymph # (Auto) 0.8 L [place] # (Auto) 0.2 Eos # (Auto) 0.0 Baso # (Auto) 0.0 Abs Immat Gran (auto) 0.05 H Absolute Neuts (auto) 11.0 H Absolute Nucleated RBC 0.000 Nucleated RBC % (auto) 0.0 Smear Tech's Comments VERIFIED Hold Purple Top SEE NOTE Anion Gap 10 L Estim Creat Clear Calc 56.9 Estimated GFR > 60 Random Glucose 115 Lactic Acid 1.0 Calcium 8.8 Magnesium 1.8 Total Bilirubin 0.6 Direct Bilirubin 0.2 AST 35 H ALT 30 Alkaline Phosphatase 114 Total Protein 6.6 Albumin 3.7 Lipase 18 Urine Color Urine Appearance Urine pH Ur Specific [place] Urine Protein Urine Glucose (UA) Urine Ketones Urine Blood Urine Nitrite Ur Leukocyte Esterase Urine RBC Urine WBC Ur Squamous Epith Cells Urine Bacteria Hyaline Casts Influenza Type A (PCR) NEGATIVE Influenza Type B (PCR) NEGATIVE RSV RNA Qual (PCR) NEGATIVE SARS-CoV-2 RNA (RT-PCR) NEGATIVE 05/19/24 05/20/24 18:12 05:12 MCV MCH MCHC RDW Plt Count MPV Immature Gran % (Auto) Neut % (Auto) Lymph % (Auto) [place] % (Auto) Eos % (Auto) Baso % (Auto) Lymph # (Auto) [place] # (Auto) Eos # (Auto) Baso # (Auto) Abs Immat Gran (auto) Absolute Neuts (auto) Absolute Nucleated RBC Nucleated RBC % (auto) Smear Tech's Comments Hold Purple Top Anion Gap 13 Estim Creat Clear Calc 45.4 Estimated GFR 50 Random Glucose 96 Lactic Acid Calcium 8.0 L D Magnesium Total Bilirubin 1.6 H Direct Bilirubin AST 279 H ALT 156 H Alkaline Phosphatase 131 H Total Protein 6.0 L Albumin 3.0 L Lipase Urine Color Yellow Urine Appearance Clear Urine pH 7.0 Ur Specific [place] >= 1.030 H Urine Protein Negative Urine Glucose (UA) Negative Urine Ketones Negative Urine Blood Negative Urine Nitrite Negative Ur Leukocyte Esterase Trace H Urine RBC 0-2 Urine WBC 6-10 H Ur Squamous Epith Cells 6-10 Urine Bacteria None Seen Hyaline Casts 0-2 Influenza Type A (PCR) Influenza Type B (PCR) RSV RNA Qual (PCR) SARS-CoV-2 RNA (RT-PCR) Assessment and Plan (1) Enteritis: Status: Acute Plan 69F PMH hereditary angioedema, cleft palate, mood disroder, presented with abd pain acute enteritis due to hereditary angioedema benadryl for now, follow up icer machine - dr Piedad Dailey for further treatment reccomendations ivf monitor lfts will dc abx, doubt bacterial infection dvt prophylaxis - hep sq full code reason for continued hospitalization:not tolerating po Quality Stroke Does the patient have a stroke diagnosis?: No VTE Prior VTE?: No VTE Risk Level:: Medical - moderate - high VTE Device Contraindication: Treatment Not Indicated VTE Drug Contraindication: N/A - Med Ordered
--- NOTE | 2024-05-20 12:34 | PM.EVENT ---
Event Note Date of Service: 05/20/24 Event Note: GI Consult Time Spent With Patient Time: Total time managing care of this patient today ____ minutes.
--- NOTE | 2024-05-20 12:37 | P.EN_ITS ---
Event Note Date of Service: 05/20/24 Event Note: GI Consult-Full note dictated. History from the patient and from her sister, Dr. Dottie Romero. who provided significant information regarding the patient's medical history with records from her animal husbandry worker, Dr. Dailey at [facility]. 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 She usually has lip swelling and this is her first episode with involvement of her GI tract. Rec: I spoke with Ludivina and her sister in detail regarding the current situation and have recommended we contact Dr. Reyes to find out the recommended treatment for this condition. I do not think surgical intervention is presently required but, as I advised Ludivina, we need to treat this and reverse the process LLUVIA so as to avoid progression of the intestinal inflammation with subsequent need for surgery. I spoke with Dr. Vang about this. He will reach out to Dr. Dailey and the hospital pharmacy to try to arrange for treatment LLUVIA. I don't think any type of endoscopic intervention is needed. Ludivina and her sister were comfortable with this plan. Thanks Time Spent With Patient Time: Total time managing care of this patient today ____ minutes.
--- NOTE | 2024-05-20 13:46 | MHC.EDTECH ---
pt consumed 90% of lunch tray
[2024-05-20] MEDS: Dextrose 5 % and 0.45 % NaCl 500 ML 50 ML IVCONT (17:42)
--- NOTE | 2024-05-20 22:07 | PC.NURSE ---
Previous bag administered on day shift. Second bag of FFP verified with RN Katia, verified with Blood bank that patient is A negative, and bag of FFP says A Positive, that its ok to give.
--- NOTE | 2024-05-20 23:50 | CONS_ITS ---
DATE OF SERVICE: 05/20/2024 REASON FOR CONSULTATION: Abdominal pain, abnormal CT scan of small bowel. HISTORY OF PRESENT ILLNESS: This has been obtained from the patient, as well as her sister who provided significant information regarding Ludivina's underlying medical history. The patient is a 69-year-old female, known to me from prior office visits and most recently, a colonoscopy in 2020, that revealed only a small tubular adenoma. Since I saw Ludivina, she has had problems with intermittent episodes of lip swelling and was diagnosed by Dr. 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 According to the patient and her sister, Ludivina has been reluctant to try any treatment for the underlying disease when she has her episodes of lip swelling and has not received any specific treatment when those episodes occur. She has never had any GI involvement by this condition. However, over the past week or so, she has had intermittent episodes of fairly severe abdominal pain, particularly in the left side. This seems to be worsened by eating. Ludivina denies any fevers, evidence of GI bleeding or any signs of jaundice. Prior to the past week or so, she had been feeling well from a GI standpoint. She does have some underlying history of presumed irritable bowel syndrome as well with some irregular bowel movements, but this current presentation with abdominal pain is new for her and not consistent with her usual IBS symptoms. MEDICATIONS: At home; included albuterol, Zyrtec, vitamin D, Benadryl p.r.n., famotidine p.r.n., Flonase, hydrochlorothiazide, eyedrops, and Singulair. PAST MEDICAL HISTORY: Diagnosis of type 1 hereditary angioedema with C1 inhibitor deficiency and dysfunction in 2022 by her operations engineer, Dr. Dailey, at [facility]. She has had negative duodenal biopsies and negative colon biopsies in regard to the IBS and irregular bowel movements. Her most recent colonoscopy in 2020, revealed a small tubular adenoma. She does have a history of bronchitis, eczema, hypertension, and arthritis. She denies any history of ID, diabetes or stroke. PAST SURGICAL HISTORY: Surgeries included laparoscopic cholecystectomy, cleft palate and nasal surgery, and breast reduction. FAMILY HISTORY: Noncontributory without any definitive family history of the hereditary angioedema. There is a family history of colon cancer in 2 aunts. SOCIAL HISTORY: She is single. She does not smoke nor use any alcohol. REVIEW OF SYSTEMS: CONSTITUTIONAL: Prior to the past week or so, she has been feeling fairly well with good energy, good appetite. CARDIAC: No chest pain. PULMONARY: No coughing or hemoptysis. GI: As above. URINARY: No dysuria or hematuria. PHYSICAL EXAMINATION: GENERAL: The patient is a pleasant, alert, comfortable-appearing female. She has been afebrile in the emergency room. SKIN: Warm and dry. EYES: Anicteric sclerae. Moist mucous membranes. NECK: Supple. CARDIAC: Normal S1, S2. ABDOMEN: Soft with normal bowel sounds. The abdomen is slightly distended and there is some diffuse tenderness, although particularly on the left side. There is no palpable mass, rebound or significant guarding. LABORATORIES: Her CT scan describes a segment of inflamed and thick walled small bowel in the left lower abdomen with some edema and inflammation of the mesentery. There was a small amount of ascites within the loops of small bowel. There was no sign of any intraabdominal abscess nor free air. Her liver appeared normal other than a long-standing small benign lesion. There was no sign of any biliary disease. Laboratories revealed a white blood cell count 12.1, hemoglobin 13.3, and platelets 252,000. Normal electrolytes. BUN 19, creatinine 1.1. She did have elevation of the LFTs, which were new compared to yesterday. Total bilirubin was up to 1.6, AST was up to 279, and ALT was up to 156. The alkaline phosphatase was up to 131 and the albumin was 3.0. Lipase was 18. Her LFTs were basically normal. Yesterday, when she 1st presented to the ER and were also normal back in March. IMPRESSION: Given the patient's known underlying history of hereditary angioedema this current presentation based on her history and the CT scan findings is quite consistent with a flare of this condition. The elevated LFTs may be secondary to the systemic ongoing illness at the present time in as well. There is no evidence of any biliary obstruction nor any worrisome liver mass. At this point, I did review everything with Ludivina, her sister, and the hospitalist, Dr. Vang. Dr. Vang says he will contact Ludivina's operations engineer, Dr. Dailey, to review Ludivina's case and obtain information regarding the optimal treatment for Ludivina. I am sure this will need to be ordered by the pharmacy and hopefully can be obtained as soon as possible. At this point, Ludivina appears stable and does not seem to require any type of surgical or endoscopic intervention. Thank you for this consultation. MD OBDULIO Askew/JOSEPH / [id number]
[2024-05-21 00:07] VITALS: BP 158/62; PULSE 61; RESP 16; TEMP 36.3
[2024-05-21 04:00] VITALS: BP 139/74; PULSE 57; RESP 16; TEMP 36.8; O2SAT 98
[2024-05-21 07:43] VITALS: BP 140/71; PULSE 60; RESP 16; TEMP 36.7; O2SAT 98
[2024-05-21 08:43] LABS: Hematocrit 32.7 % (37.0-47.0); Hemoglobin 11.3 g/dl (12.0-16.0); Mean Corpuscular HGB Conc 34.6 g/dl (31.0-35.0); Mean Corpuscular Hemoglobin 29.9 pg (27.0-33.0); Mean Corpuscular Volume 86.5 fL (80.0-98.0); Mean Platelet Volume 11.7 fL (9.4-12.3); Platelet Count 197 X10*3/uL (160-400); Red Blood Count 3.78 X10*6/uL (4.20-5.50); Red Cell Distribution Width 13.2 % (11.0-16.0); White Blood Count 6.4 X10*3/uL (4.8-10.8)
[2024-05-21 08:52] LABS: Prothrombin Time 11.7 SEC (10.9-12.4)
[2024-05-21] MEDS: Montelukast Sodium 10 MG TABLET PO (09:06)
[2024-05-21] MEDS: Cholecalciferol (Vitamin D3) 25 MCG TABLET PO (09:06)
[2024-05-21] MEDS: Heparin Sodium,Porcine 5,000 UNIT/ML VIAL 5000 UNIT SUBCUT ×2 (09:07→18:02)
[2024-05-21 09:12] LABS: Alanine Aminotransferase 135 U/L (0-31); Albumin Level 3.7 g/dL (3.5-5.0); Alkaline Phosphatase 138 U/L (39-117); Aspartate Amino Transferase 129 U/L (5-31); Bilirubin Direct 0.2 mg/dL (0.0-0.5); Bilirubin Total 0.7 mg/dL (0.0-1.0); Blood Urea Nitrogen 11 mg/dL (9-16); Creatinine Clr Calc Pharmacy 54.3; Estimated Glomerular Filt Rate > 60; Glucose Random 85 mg/dL (60-115); Magnesium 1.8 mg/dL (1.6-2.6); Total Protein 6.7 g/dL (6.5-8.0)
--- NOTE | 2024-05-21 09:19 | HO.PM.IMPN ---
Subjective Subjective Date of Service: 05/21/24 Interval History: abd pain improved, hungry Physical Exam Vital Signs: Vital Signs: Last Vital Signs Temp 98.0 F 05/21/24 07:43 Pulse 60 05/21/24 07:43 Resp 16 05/21/24 07:43 BP 140/71 H 05/21/24 07:43 Pulse Ox 98 05/21/24 07:43 O2 Del Method Room Air 05/21/24 07:43 BMI result Body Mass Index 25.4 General: AO X 3, no acute distress Resp: CTA bilateral, no accessory muscles used CVS: S1,S2,RRR GI: soft, non tender, non distended Neuro: motor grossly intact, alert Psych: appropriate affect, appropriate insight Objective Data Active Medications Acetaminophen (Acetaminophen 325 Mg Tablet) 650 mg PO Q6H PRN PRN Reason: Pain, Mild 1-3,fever,headache Calcium Carbonate (Calcium Carbonate 750 Mg Tab.Chew) 750 mg PO Q4H PRN PRN Reason: Heartburn Diphenhydramine HCl (Diphenhydramine Hcl 50 Mg/Ml Vial) 25 mg IVPUSH Q6H PRN PRN Reason: abdominal discomfort Heparin Sodium (Porcine) (Heparin Sodium,Porcine 5,000 Unit/Ml Vial) 5,000 unit SUBCUT Q8H [facility] Last Admin: 05/21/24 09:07 Dose: 5,000 unit Documented By: ART Hydromorphone HCl (Hydromorphone Hcl 0.5 Mg/0.5 Ml Syringe) 0.5 mg IVPUSH Q4H PRN; Protocol PRN Reason: Breakthrough Pain Last Admin: 05/20/24 04:30 Dose: 0.5 mg Documented By: AYAAN Dextrose/Sodium Chloride (D51/2ns) 500 mls @ 50 mls/hr IVCONT .Q10H [facility] Last Infusion: 05/21/24 09:14 Dose: 50 mls/hr Documented By: ART Latanoprost (Latanoprost 0.005 % Ophth Staci 2.5 Ml Drops) 1 drop EYE-BOTH BEDTIME [facility] Last Admin: 05/20/24 22:07 Dose: Not Given Documented By: KELSIE Non-Admin Reason: Med Not Available Magnesium Hydroxide (Milk Of Magnesia 30 Ml Oral.Susp) 30 ml PO DAILY PRN PRN Reason: Constipation Melatonin (Melatonin 3 Mg Tablet) 6 mg PO BEDTIME PRN PRN Reason: Insomnia Montelukast Sodium (Montelukast Sodium 10 Mg Tablet) 10 mg PO DAILY [facility] Last Admin: 05/21/24 09:06 Dose: 10 mg Documented By: ART Sodium Chloride (0.9 % Sodium Chloride Flush 3 Ml Syringe) 3 ml IVFLUSH QSHIFT [facility] Last Admin: 05/21/24 09:12 Dose: Not Given Documented By: ART Non-Admin Reason: IV Running Vitamin D (Cholecalciferol (Vitamin D3) 25 Mcg Tablet) 25 mcg PO DAILY [facility] Last Admin: 05/21/24 09:06 Dose: 25 mcg Documented By: ART Labs 05/21/24 08:30 05/21/24 08:30 Labs: Laboratory Results - last 24 hr 05/20/24 05/21/24 13:36 08:30 MCV 86.5 MCH 29.9 MCHC 34.6 RDW 13.2 Plt Count 197 MPV 11.7 Absolute Nucleated RBC 0.000 Nucleated RBC % (auto) 0.0 PT 11.7 INR 1.0 Estim Creat Clear Calc 54.3 Estimated GFR > 60 Random Glucose 85 Magnesium 1.8 Total Bilirubin 0.7 Direct Bilirubin 0.2 AST 129 H ALT 135 H Alkaline Phosphatase 138 H Total Protein 6.7 Albumin 3.7 Blood Type A Negative Antibody Screen NEGATIVE Microbiology Microbiology Results: Microbiology 05/19/24 17:50 Blood Culture - Preliminary Blood - Venous No growth after 24 hours. 05/19/24 17:44 Blood Culture - Preliminary Blood - Venous No growth after 24 hours. 05/19/24 18:28 Urine Culture - Preliminary Urine clean catch - Clean Catch Midstream Culture too young to evaluate. Assessment and Plan (1) Enteritis: Status: Acute Plan 69F PMH hereditary angioedema, cleft palate, mood disorder, presented with diffuse abd pain acute enteritis due to hereditary angioedema reporting improvement after 2 units FFP plan for berinert dose today outpatient follow up with [facility] - dr Dailey follow up GI lfts improving dvt prophylaxis - hep sq full code reason for continued hospitalization: awaiting tolerance of solids Quality Stroke Does the patient have a stroke diagnosis?: No VTE Prior VTE?: No VTE Risk Level:: Medical - moderate - high VTE Device Contraindication: Treatment Not Indicated VTE Drug Contraindication: N/A - Med Ordered
[2024-05-21 09:25] LABS: Anion Gap 10 (12-20); Calcium 8.9 mg/dL (8.4-10.2); Carbon Dioxide 27 mmol/L (22-29); Chloride 106 mmol/L (96-108); Potassium 3.4 mmol/L (3.3-5.1); Sodium 140 mmol/L (135-145)
[2024-05-21] MEDS: Dextrose 5 % and 0.45 % NaCl 500 ML 50 ML IVCONT (09:29)
[2024-05-21 11:29] VITALS: BP 160/72; PULSE 55; RESP 16; TEMP 37.1; O2SAT 98
--- NOTE | 2024-05-21 12:02 | MHC.CM.PN ---
Patient not medically cleared for dc. CM will continue to follow.
[2024-05-21] MEDS: C1 ESTERASE INHIBITOR 240 UNIT IVPUSH ×3 (14:07→14:08)
[2024-05-21 15:07] VITALS: BP 168/78; PULSE 52; RESP 16; TEMP 36.6; O2SAT 99
--- NOTE | 2024-05-21 17:40 | P.DS_ITS ---
DS: Providers Provider Date of Service: 05/21/24 Date of admission: 05/19/24 19:50 Date of discharge: 05/21/24 Primary care physician: Ivette Baca MD Consults: 05/19/24 21:58 Consult to Gastroenterology Routine Consulting Provider: Arnold Montesinos Reason for consultation: enteritis Has provider been notified: No DS: Diagnosis Discharge Diagnosis (1) Enteritis: Status: Acute DS: Summary Hospital Course Hospital Course: from initial hpi: 69-year-old female with a past medical history of hereditary angioedema, IBS, glaucoma, hiatal hernia, left palate, anxiety, arthritis, presented to the hospital with a chief complaint of abdominal pain. Patient reports that around noon time she ate pizza followed me she developed heartburn and then started develop abdominal pain more so in the right upper quadrant. Also had associated nausea and vomiting. Denied any diarrhea. Reports her abdominal pain is better after she got pain medications in the ER. Denies any chest pain or palpitations. Denies any fevers and chills. Denies any urinary symptoms. Review of all other systems is negative except mentioned above ER course: Per ER team, patient noted to have diffuse abdominal tenderness; no guarding no rigidity. CT abdomen pelvis showed small-bowel enteritis, also noted to have hyperemia and infiltrative changes in the small bowel mesentery could be infectious versus inflammatory. Small volume ascites. Cardiomegaly. And known left hepatic lobe lesion. ER physician discussed with general surgery who mentioned no acute surgical intervention hospital course: patient was admitted for enteritis due to flare of hereditary angioedema. was treated with iv fluids, FFP. case was discussed with her alelrgist Dr. Dailey. was given berinert. patient symptoms improved and was able to tolerate solid diet. she will be discharged home and follow up with dr handy as outpatient. Time Attestation Discharge Coordination Time (in mins): 34 Quality: Safe Use of Opioids Does Pt have an Active Cancer Diagnosis on the Problem List?: No Quality: Stroke Does the patient have a stroke diagnosis?: No Physical Exam Vital Signs: Vital Signs: Last Vital Signs Temp 97.8 F 05/21/24 15:07 Pulse 52 05/21/24 15:07 Resp 16 05/21/24 15:07 BP 168/78 H 05/21/24 15:07 Pulse Ox 99 03/28/25 15:07 O2 Del Method Room Air 05/21/24 15:07 BMI result Body Mass Index 25.4 General: AO X 3, no acute distress Resp: CTA bilateral, no accessory muscles used CVS: S1,S2,RRR GI: soft, non tender, non distended Neuro: motor grossly intact, alert Psych: appropriate affect, appropriate insight DS: Data Data Completed and Pending Labs on day of discharge: Laboratory Results - last 24 hr 05/20/24 05/21/24 13:36 08:30 WBC 6.4 RBC 3.78 L Hgb 11.3 L Hct 32.7 L MCV 86.5 MCH 29.9 MCHC 34.6 RDW 13.2 Plt Count 197 MPV 11.7 Absolute Nucleated RBC 0.000 Nucleated RBC % (auto) 0.0 PT 11.7 INR 1.0 Sodium 140 Potassium 3.4 Chloride 106 Carbon Dioxide 27 Anion Gap 10 L BUN 11 Creatinine 0.91 Estim Creat Clear Calc 54.3 Estimated GFR > 60 Random Glucose 85 Calcium 8.9 D Magnesium 1.8 Total Bilirubin 0.7 Direct Bilirubin 0.2 AST 129 H ALT 135 H Alkaline Phosphatase 138 H Total Protein 6.7 Albumin 3.7 Blood Type A Negative Antibody Screen NEGATIVE Preliminary micro results at discharge 05/19/24 17:50 Blood Culture - Preliminary Blood - Venous No growth after 24 hours. 05/19/24 17:44 Blood Culture - Preliminary Blood - Venous No growth after 24 hours. Discharge Plan Discharge Anticipated Discharge Date/Time: 05/21/24 17:38 Patient Disposition: Home, Self-Care Discharge Diagnosis: hereditary angioedema with enteritis Referrals: Ivette Baca MD [Primary Care Provider] - 1 Week Piedad Dailey MD [Physician] - 1 Week Discharge Medications: Continued latanoprost 0.005 % drops 1 drp ophthalmic (eye) BEDTIME hydrochlorothiazide 25 mg tablet 1 tab PO DAILY Zyrtec 10 mg Capsule 10 mg PO DAILY PRN (Reason: Allergy Symptoms) montelukast 10 mg tablet 10 mg PO DAILY albuterol sulfate [Ventolin HFA] 90 mcg/actuation HFA aerosol inhaler 2 puff INHALATION Q4-6H PRN (Reason: Shortness Of Breath Or Wheezing) fluticasone propionate 50 mcg/actuation [place],Suspension 2 spray INTRANASAL DAILY Rx Instructions: administer into each nostril cholecalciferol (vitamin D3) 25 mcg (1,000 unit) Capsule 25 mcg PO DAILY famotidine 20 mg tablet 20 mg PO DAILY PRN (Reason: Heartburn) diphenhydramine HCl [Benadryl] 25 mg capsule 50 mg PO DAILY PRN (Reason: angioedema) Discharge Orders: Discharge Order (Routine); Ordered 05/21/24 Ordered By: Jenaro Vang Diet: Advance to usual diet Activity on Discharge: As tolerated Stand Alone Forms: Patient Portal Discharge page Print Language: [place] Island[place] Care Plan Goals: manage/avoid flares of HAE Health Concerns: HAE Plan of Treatment: follow up with Dr. Dailey Assessment: see above
== END 2024-05-21 18:00 | disposition home or self-care (01) | DRG 642 ==
LOC: HO.ED 18:14 → HO.EDOVER 19:55 → HO.S3 05-20 14:56
PROVIDERS: Admitting Provider Hospitalist; Emergency Provider Emergency Medicine Emergency Medical Services; PCP Internal Medicine; Visit Provider Internal Medicine
DX: D84.1 Defects in the complement system (principal); K52.9 Noninfective gastroenteritis and colitis, unspecified; Z20.822 Contact with and (suspected) exposure to COVID-19; Z79.51 Long term (current) use of inhaled steroids; Z79.899 Other long term (current) drug therapy
CPT/HCPCS: 0241U; 36415; 74177; 80048; 80053; 80076; 81001; 83605; 83690; 83735; 85025; 85027; 85610; 86850; 86900; 86901; 87040; 87086; 99285; J0597; J1171; J1644; J1885; J2270; J2405; J2543; P9017; Q9967

== ENCOUNTER → 2024-05-19 12:03 | Outpatient (BNV) | payer MEDICARE, MEDICAID, SELFPAY | PROVIDERS: Emergency Provider Emergency Medicine Emergency Medical Services; Visit Provider Radiology Diagnostic Radiology | DX: R18.8 Other ascites (principal); K76.89 Other specified diseases of liver | CPT/HCPCS: 74177 ==

== ENCOUNTER → 2024-05-19 19:50 | Outpatient (BNV) | payer MEDICARE, MEDICAID, SELFPAY | PROVIDERS: Admitting Provider Hospitalist; Emergency Provider Emergency Medicine Emergency Medical Services; Visit Provider Internal Medicine | DX: K52.9 Noninfective gastroenteritis and colitis, unspecified (principal) | CPT/HCPCS: 99239 ==

== ENCOUNTER 2024-05-29 10:17 | Outpatient (AMB) | payer MEDICARE, MEDICAID, SELFPAY ==
--- OUTSIDE RECORDS SUMMARY | 2024-05-29 10:19 | XMS_ITS | Patient Health Record ---
Author Organization [facility] Address [address] [place] [address] Care Team Providers Care Optometrist President/Practice Owner Name Role Phone Levi Manning MD Primary Care Provider Scott Mckenzie [phone] Allergies Allergen (clinical drug ingredient) Drug/Non Drug Allergy documented on EMR Reaction Allergy Type Onset Date Status sulfacetamide Sulfacetamide Sodium Unknown Drug Allergy Active nuts (uncoded) Unknown Allergy Activ e dairy (uncoded) Unknown Allergy Acti ve Apple,pectin (uncoded) Unknown Allergy Active Reason For Referral No Information Medications Medication SIG (Take, Route, Frequency, Duration) Notes [...] bloating, discomfort for 30 days 10/15/2013 Active Problems Problem Type SNOMED Code ICD Code Onset Dates Problem Status W/U Status Risk Notes Problem 078849535 Encounter for screening for malignant neoplasm of colon (Z12.11) Active confirmed Problem 340193091929210 Pre-procedural examination (Z01.818) Active confirmed Problem 76256239 Irritable bowel syndrome, unspecified type (K58.9) Active confirmed Problem Diverticulosis of colon (783814679) Diverticulosis of colon (K57.30) Active confirmed Plan Of Treatment Future Test Test Name Order Date COLONOSCOPY 09/07/2020 Insurance Providers Payer Name Payer Address Payer Phone Subscriber Number Group Number Insured Name Patient Relationship to Insured Coverage Start Date Coverage End Date MEDICARE OF [place] [address] [place] [id number] JOAN ORTIZ Self - patient is the insured MEDICAID OF [facility] [address] [place] [address] [id number] JOAN ORTIZ Self - patient is the insured Medical (General) History Medical History History ICD Code 07/26/2010 EGD-small hiatal hernia, normal duodenal biopsies, and mild gastritis but negative H. pylori Hypertension Denies AK,DM,CVA,Lung disease,renal dise ase Arthritis Colonoscopy in 07/2010-normal biopsies, without any sign of microscopic colitis--there were no polyps-there was some mild sigmoid diverticulosis and small internal hemorrhoids Bronchitis Eczema Irritable bowel syndrome Surgical History Surgery Date(Month/Year) Laparoscopic Cholecystectomy 2010 Cleft palate & nasal surgery Breast reduction
--- NOTE | 2024-05-29 10:32 | MHC.OFFWIV ---
Intake Vital Signs 05/29/24 10:34 Height 5 ft 1 in BP 150/90 H Blood Pressure Location Lt brachial Position Sitting Pulse 80 Pulse Source Pulse Oximeter Temp 98.0 F Temp Source Oral Pulse Oximetry (%) 98 Oxygen Delivery Method Room Air Intake Visit Reasons: EP-Allergic reaction Patient Tobacco Use Status: Never used Tobacco Allergies apple [APPLE] Allergy (Severe, Verified 05/29/24 11:24) FACIAL SWELLING lisinopril [LISINOPRIL] Allergy (Severe, Verified 05/29/24 11:24) FACIAL SWELLING metoprolol [METOPROLOL] Allergy (Severe, Verified 05/29/24 11:24) FACIAL SWELLING, facial swelling with any bp med nut - unspecified [NUTS] Allergy (Severe, Verified 05/29/24 11:24) Facial Swelling pectin [PECTIN] Allergy (Severe, Verified 05/29/24 11:24) Facial Swelling triamterene [TRIAMTERENE] Allergy (Severe, Verified 05/29/24 11:24) FACIAL SWELLING DAIRY PRODUCTS Allergy (Severe, Uncoded 05/29/24 11:24) Facial Swelling Medication List - Last Reconciled 05/29/24 by Bozena Oconnor, SPECIAL EVENTS MANAGER- albuterol sulfate 90 mcg/actuation (Ventolin HFA) 2 puffs inhalation Q4-6H PRN cetirizine (Zyrtec) 10 mg PO DAILY PRN cholecalciferol (vitamin D3) 25 mcg PO DAILY diphenhydramine HCl (Benadryl) 50 mg PO DAILY PRN famotidine 20 mg PO DAILY PRN fluticasone propionate 50 mcg/actuation 2 sprays intranasal DAILY hydrochlorothiazide 1 tab PO DAILY latanoprost 0.005% 1 drp ophthalmic (eye) BEDTIME montelukast 10 mg PO DAILY Do you need a note to return to daycare/school/sports/work: No HPI HPI Comments History of Present Illness Details - The patient is a 69-year-old female presenting with a rash. - The rash developed last week during hospitalization for small bowel inflammation and treatment with new medications. - It started on the abdomen and spread to other areas, notably the chest, back, and thighs, characterized by maculopapular and hive-like eruptions. It is itchy. It is not painful. No effect on airway. - The patient has a history of hereditary angioedema type 1 and received treatment during recent hospitalization, both antibiotics and plasma infusions prior to receiving Barinert. - Tried cortisone without relief. - Has famotadine and Zyrtec at home but did not take; does have montelukast and states is taking. - Active w/ Dr Dailey. Next appt 06/07/24 Pt also c/o constipation with some BRB when wiping. Sister Dottie is a big source of the above I also reviewed the [facility] d/c summary. Physical Exam See pictures of rash. Discussion Notes I advised continuing with fomatadine, Zyrtec and Montelukast which could help alleviate symptoms. We discussed the alternative of avoiding prednisone unless necessary. I also recommended follow-up with her child care associate, Dr. Dailey. We considered signing up for a patient portal for easier access to medical records and sharing clinical photos with specialists. Request to have this note sent to Dr Dailey; I will ask the staff to do this. Recommend fiber and increased h20 and otc meds to help w/ constipation. Reassured about BRB. Edu on reasons to see ED level of care. Patient Instructions - Start taking cetirizine, montelukast and famotadine daily until seen by Dr Dailey June 07, 2024 - Apply cortisone cream to the rash as needed for itchiness. - Monitor the rash and seek medical attention if symptoms worsen. - Follow up with Dr. Dailey on June 07 - I sent a message to Dr Nixon to request sooner appointment, the office will contact you. - Maintain a balanced diet and increase fiber intake to alleviate constipation. Consent Patient was informed and verbally consented to the use of an ambient scribe for clinic note documentation during this visit. Total time spent caring for the patient today was 71 minutes. This includes time spent before the visit reviewing the chart, time spent during the visit, and time spent after the visit on documentation, reviewing laboratory results, diagnostic imaging, medication, performing a medically necessary evaluation, counseling on diagnoses, care coordination, ordering appropriate tests, ordering appropriate medications, review of tests performed by other providers, reporting test results with the patient, communication with other healthcare providers. [facility] Medical History Anxiety Hx of hypoglycemia Arthritis IBS (irritable bowel syndrome) Glaucoma Hx of cardiac murmur Heartburn Hiatal hernia Hx of cleft palate with cleft lip Surgical History Hx of cholecystectomy Hx of colonoscopy History of esophagogastroduodenoscopy (EGD) Hx of bilateral breast reduction surgery H/O rhinoplasty Social History Housing: Apartment Do you presently have visiting nurse or other home services: Yes (housekeeping every other ) Alcohol intake: never Patient Tobacco Use Status: Never used Tobacco service: No Physical Exam Vital Signs: Last Vital Signs Temp 98.0 F 05/29/24 10:34 Pulse 80 05/29/24 10:34 BP 150/90 H 05/29/24 10:34 Pulse Ox 98 05/29/24 10:34 Oxygen Delivery Method Room Air 05/29/24 10:34 Results Reviewed Results Reviewed: Assessment & Plan Assessment & Plan (1) Allergic angioedema: Code(s): T78.3XXA - Angioneurotic edema, initial encounter Qualifiers: Encounter type: initial encounter Qualified Code(s): T78.3XXA - Angioneurotic edema, initial encounter (2) Rash and nonspecific skin eruption: Code(s): R21 - Rash and other nonspecific skin eruption (3) Constipation: Code(s): K59.00 - Constipation, unspecified Qualifiers: Constipation type: unspecified constipation type Qualified Code(s): K59.00 - Constipation, unspecified (4) Bleeding external hemorrhoids: Code(s): K64.4 - Residual hemorrhoidal skin tags Plan . Patient Instructions: - Start taking cetirizine, montelukast and famotadine daily until seen by Dr Dailey June 07, 2024 - Apply cortisone cream to the rash as needed for itchiness. - Monitor the rash and seek medical attention if symptoms worsen. - Follow up with Dr. Dailey on June 07 - I sent a message to Dr Nixon to request sooner appointment, the office will contact you. - Maintain a balanced diet and increase fiber intake to alleviate constipation. Coding Level of Care Code Est Pt Level 5 (71838) Diagnoses Allergic angioedema T78.3XXA Encounter type: initial encounter Rash and nonspecific skin eruption R21 Constipation, unspecified constipation type K59.00 Constipation type: unspecified constipation type Bleeding external hemorrhoids K64.4 CPT Codes [facility] OUTPT/OFFICE VIS - G2212
[2024-05-29 10:34] VITALS: BP 150/90; PULSE 80; TEMP 36.7; O2SAT 98
== END 2024-05-29 11:51 | disposition home or self-care (01) ==
LOC: HO.HMCWIC 10:17
PROVIDERS: PCP Internal Medicine; Visit Provider Nurse Practitioner Family
DX: T78.3XXA Angioneurotic edema, initial encounter (principal); R21 Rash and other nonspecific skin eruption; K59.00 Constipation, unspecified; K64.4 Residual hemorrhoidal skin tags

== ENCOUNTER → 2024-05-29 10:17 | Outpatient (BNVA) | payer MEDICARE, MEDICAID, SELFPAY | PROVIDERS: PCP Internal Medicine; Visit Provider Nurse Practitioner Family | DX: T78.3XXA Angioneurotic edema, initial encounter (principal); R21 Rash and other nonspecific skin eruption; K59.00 Constipation, unspecified; K64.4 Residual hemorrhoidal skin tags | CPT/HCPCS: 99212 ==

== ENCOUNTER 2024-06-04 12:54 | Outpatient (AMB) | payer MEDICARE, MEDICAID, SELFPAY ==
[2024-06-04 13:06] VITALS: BP 148/90; PULSE 71; TEMP 36.4; O2SAT 99; BMI 35.1
--- NOTE | 2024-06-04 13:06 | MHC.PC.OV ---
Vital Signs 06/04/24 13:06 Height 5 ft 1 in Weight 186 lb BMI 35.1 BP 148/90 H Blood Pressure Location Lt brachial Position Sitting Pulse 71 Pulse Source Pulse Oximeter Temp 97.5 F Temp Source Axillary Pulse Oximetry (%) 99 Oxygen Delivery Method Room Air Intake Visit Reasons: Discharge Appt Rn Ambulatory Required: No Allergies apple [APPLE] Allergy (Severe, Verified 06/04/24 13:07) FACIAL SWELLING lisinopril [LISINOPRIL] Allergy (Severe, Verified 06/04/24 13:07) FACIAL SWELLING metoprolol [METOPROLOL] Allergy (Severe, Verified 06/04/24 13:07) FACIAL SWELLING, facial swelling with any bp med nut - unspecified [NUTS] Allergy (Severe, Verified 06/04/24 13:07) Facial Swelling pectin [PECTIN] Allergy (Severe, Verified 06/04/24 13:07) Facial Swelling triamterene [TRIAMTERENE] Allergy (Severe, Verified 06/04/24 13:07) FACIAL SWELLING DAIRY PRODUCTS Allergy (Severe, Uncoded 06/04/24 13:07) Facial Swelling Medication List - Last Reconciled 06/06/24 by Ivette Baca MD albuterol sulfate 90 mcg/actuation (Ventolin HFA) 2 puffs inhalation Q4-6H PRN cetirizine (Zyrtec) 10 mg PO DAILY PRN cholecalciferol (vitamin D3) 25 mcg PO DAILY famotidine 20 mg PO DAILY PRN fluticasone propionate 50 mcg/actuation 2 sprays intranasal DAILY hydrochlorothiazide 1 tab PO DAILY montelukast 10 mg PO DAILY Tobacco use date assessed: 06/04/24 Fall risk assessment: No Falls in past year Last assessed Fall Risk: 06/04/24 Dental Screening Dental Screen Date: 06/04/24 Did you have a dental visit in the last 12 months?: Yes Did you have a dental problem in the last 6 months where you did not have access to dental care?: No HPI HPI Comments History of Present Illness Details 69-year-old female with a past medical history of hypertension, hereditary angioedema, IBS, glaucoma, hiatal hernia, left palate, anxiety, arthritis, Recent hospitalization. presented to the hospital with a chief complaint of abdominal pain-[facility] [place]. Hospitalized 05/19-05/21/24. CT small bowel enteritis. Treated with IVF, FFP. Trade Mark Attorney consulted. Improved. Seen in urgent care for rash thereafter which has since resolved. Does have upcoming visit with her planning lead next week. She has some residual abd bloating, discomfort, much improved since hospitalization. CV: On hctz 25mg. 148/90. she says nervous to meet new provider. Denies chest pain, denies increased exertional dyspnea. Mammo 05/2023 Colonoscopy 10/2020-follow up 5 years. [facility] GI. GI saw during hospitalization. A&I: Following with Dr Patel. Upcoming visit Friday ROS see HPI PHYSICAL EXAM: GENERAL: Alert and oriented x 3. NAD EYES: EOMI. Anicteric. HENT: Moist mucous membranes. No scleral icterus. No cervical lymphadenopathy. LUNGS: Clear to auscultation bilaterally. CARDIOVASCULAR: Regular rate and rhythm. No murmur. No JVD. ABDOMEN: Soft, non-tender +bs EXTREMITIES: No edema. Non-tender. SKIN: No rashes or lesions. Warm. NEUROLOGIC: No focal neurological deficits. CN II-XII grossly intact PSYCHIATRIC: Cooperative. Appropriate mood and affect [facility] Medical History Anxiety Hx of hypoglycemia Arthritis IBS (irritable bowel syndrome) Glaucoma Hx of cardiac murmur Heartburn Hiatal hernia Hx of cleft palate with cleft lip Surgical History Hx of cholecystectomy Hx of colonoscopy History of esophagogastroduodenoscopy (EGD) Hx of bilateral breast reduction surgery H/O rhinoplasty Family History Mother No problems noted. Father No problems noted. Social History Housing: Apartment Do you presently have visiting nurse or other home services: Yes (housekeeping every other ) Alcohol intake: never Patient Tobacco Use Status: Never used Tobacco e-Cigarette/Vaping Use: Never Used service: No Current occupational status: retired Cognitive needs: No Hearing needs: No Vision needs: Yes (reading glasses) Questionnaire PHQ-9 Over the last 2 weeks, how often have you been bothered by any of the following problems? 1. Little interest or pleasure in doing things: not at all 2. Feeling down, depressed, or hopeless: not at all 3. Trouble falling or staying asleep, or sleeping too much: not at all 4. Feeling tired or having little energy: not at all 5. Poor appetite or overeating: not at all 6. Feeling bad about yourself - or that you are a failure or have let yourself or your family down: not at all 7. Trouble concentrating on things, such as reading the newspaper or watching television: not at all 8. Moving or speaking so slowly that other people could have noticed. Or the opposite - being so fidgety or restless that you have been moving around a lot more than usual: not at all 9. Thoughts that you would be better off or of hurting yourself in some way: not at all Total score: 0 Depression Screening Interpretation: Negative Depression Screening Done: Yes 90223 - PHQ-9 Billing: Yes Source: Developed by Drs. Scott Cherry, Breanna Castillo, Jase Kimbrough and colleagues, with an educational iliana from [employer]. Thrive Questionnaire Date Thrive assessed: 05/20/24 I am a: Patient Within the past 12 months, did the food you bought not last and you didn't have the money to get more?: Never true Within the past 12 months, did you worry whether your food would run out before you got money to buy more?: Never true Do you have trouble paying for medicines?: No Do you have trouble getting transportation to medical appointments?: No Do you have trouble paying your heating and electricity bill?: No Do you have trouble taking care of your child, family member or friend?: No Do you have trouble with day-to-day activities such as bathing, preparing meals, shopping, managing finances, etc.?: No Are you currently unemployed and looking for a job?: No Are you interested in more education?: No THRIVE Score: 0 AUDIT C Alcohol Use Questionnaire (AUDIT-C) 1. How often do you have a drink containing alcohol?: Never 3. How often do you have six or more drinks on one occasion?: Never Total Score: 0 JOSEPH-7 AMB Questionnaire JOSEPH-7 Date JOSEPH - 7 assessed: 06/04/24 Feeling nervous, anxious, or on edge: 0 = Not at all Not being able to stop or control worryin = Not at all Worrying too much about different things: 0 = Not at all Trouble relaxin = Not at all Being so restless that it is hard to sit still: 0 = Not at all Becoming easily annoyed or irritable: 0 = Not at all Feeling afraid as if something awful might happen: 0 = Not at all Total JOSEPH-7 score (0-4 normal; 5-9 mild; 10-14 moderate; 15-21 severe): 0 Source: Developed by Drs. Scott Cherry, Breanna Castillo, Jase Kimbrough and colleagues, with an educational iliana from [employer]. Physical exam (Primary Care) Vital Signs: Last Vital Signs Temp 97.5 F 06/04/24 13:06 Pulse 71 06/04/24 13:06 BP 148/90 H 06/04/24 13:06 Pulse Ox 99 06/04/24 13:06 Oxygen Delivery Method Room Air 06/04/24 13:06 BMI result Body Mass Index 35.1 Tobacco/Smoking Status: Tobacco use Status Tobacco use date assessed 06/04/24 06/04/24 13:08 Patient Tobacco Use Status Never used Tobacco 06/04/24 13:08 e-Cigarette/Vaping Use Never Used 06/04/24 13:08 PHQ-9: PHQ-9 Score PHQ-9: Total score 0 06/04/24 14:01 Depression Screening Interpretation: Negative Thrive Assessment: Date of Thrive Assessment Date Thrive assessed 05/20/24 06/04/24 13:08 Coding Level of Care Code TCM High MDM <= 14 days Complex EM visit Add On G2211 Diagnoses Hospital discharge follow-up Z09 Enteritis K52.9 Primary hypertension I10 Hypertension type: primary hypertension History of angioedema Z87.898 Elevated LFTs R79.89 Additional Codes PHQ-9 - 96810 - PHQ-9 Billing: Yes ([id number]) Assessment & Plan Assessment & Plan (1) Hospital discharge follow-up: Code(s): Z09 - Encounter for follow-up examination after completed treatment for conditions other than malignant neoplasm Category: Medical (2) Enteritis: Code(s): K52.9 - Noninfective gastroenteritis and colitis, unspecified Category: Medical (3) Hypertension: Code(s): I10 - Essential (primary) hypertension Category: Medical Qualifiers: Hypertension type: primary hypertension Qualified Code(s): I10 - Essential (primary) hypertension (4) History of angioedema: Code(s): Z87.898 - Personal history of other specified conditions Category: Medical (5) Elevated LFTs: Code(s): R79.89 - Other specified abnormal findings of blood chemistry Category: Medical Plan 69 y/o to establish care, hospital discharge follow up Hospital course reviewed. labs reviewed elevated LFTs in setting of abdominal pain, small bowel enteritis. Recheck labs in 2 weeks. Having some residual symptoms. Ok for simethicone. continue current medications Follow up GI, allergy outpatient Labs ordered. Close follow up here. Call with worsening abdominal pain Orders: Orders Complete Blood Count Auto Diff 06/04/24 D64.9 - Anemia, unspecified, K52.9 - Noninfective gastroenteritis and colitis, unspecified, R12 - Heartburn, R79.89 - Other specified abnormal findings of blood chemistry IRON PROFILE 06/04/24 D64.9 - Anemia, unspecified, K52.9 - Noninfective gastroenteritis and colitis, unspecified, R12 - Heartburn, R79.89 - Other specified abnormal findings of blood chemistry Lipid Panel 06/04/24 D64.9 - Anemia, unspecified, K52.9 - Noninfective gastroenteritis and colitis, unspecified, R12 - Heartburn, R79.89 - Other specified abnormal findings of blood chemistry Hepatitis A,B,C Profile 06/04/24 D64.9 - Anemia, unspecified, K52.9 - Noninfective gastroenteritis and colitis, unspecified, R12 - Heartburn, R79.89 - Other specified abnormal findings of blood chemistry Comprehensive Met. Panel 06/04/24 D64.9 - Anemia, unspecified, K52.9 - Noninfective gastroenteritis and colitis, unspecified, R12 - Heartburn, R79.89 - Other specified abnormal findings of blood chemistry
--- OUTSIDE RECORDS SUMMARY | 2024-06-04 13:27 | XMS_ITS | Patient Health Record ---
Author Organization [facility] Address [address] [place] [address] Care Team Providers Care Biomedical Manager Name Role Phone Levi Manning MD Primary Care Provider Scott Mckenzie [phone] Allergies Allergen (clinical drug ingredient) Drug/Non Drug [...] Problem Status W/U Status Risk Notes Problem 518630361 Encounter for screening for malignant neoplasm of colon (Z12.11) Active confirmed Problem [id number] Pre-procedural examination (Z01.818) Active confirmed Problem 21699659 Irritable bowel syndrome, unspecified type (K58.9) Active confirmed Problem Diverticulosis of colon (045589162) Diverticulosis of colon (K57.30) Active confirmed Encounters Encounter Location Date Provider Diagnosis [facility] [address] [place] [address] 05/29/2024 Scott Suazo Plan Of Treatment Future Test Test Name Order Date COLONOSCOPY 09/07/2020 Insurance Providers Payer Name Payer Address Payer Phone Subscriber Number Group Number Insured Name Patient Relationship to Insured Coverage Start Date Coverage End Date MEDICARE OF [place] [address] SHIMA ZARATE [id number] JOAN ORTIZ Self - patient is the insured MEDICAID OF [employer] [address] [facility] [phone] [id number] JOAN ORTIZ Self - patient is the insured Medical (General) History Medical History History ICD Code 07/26/2010 EGD-small hiatal hernia, normal duodenal biopsies, and mild gastritis but negative H. pylori Hypertension Denies OK,DM,CVA,Lung disease,renal dise ase Arthritis Colonoscopy in 07/2010-normal biopsies, without any sign of microscopic colitis--there were no polyps-there was some mild sigmoid diverticulosis and small internal hemorrhoids Bronchitis Eczema Irritable bowel syndrome Surgical History Surgery Date(Month/Year) Laparoscopic Cholecystectomy 2010 Cleft palate & nasal surgery Breast reduction
--- OUTSIDE RECORDS SUMMARY | 2024-06-04 13:27 | XMS_ITS ---
Author Organization [facility] Address [address] [place] [address] Care Team Providers Care Mottler Operator Name Role Phone Levi Manning MD Primary Care Provider Unavaila Scott Angel [phone] REASON FOR VISIT Hereditary Angioedema Encounters Encounter Location Date Provider Diagnosis [facility] [address] [place] [address] 05/29/2024 Scott Suazo Plan Of Treatment No Information Progress Notes * JOAN ORTIZ ADOB:1955 (69 yo F)Acc No.[id number]:05/29/2024 Patient:?JOAN ORTIZ :1955???Age:69 Y???Sex:Female Address:[address] [place] [address] * true * Date:? Generated for Lisai kaylie/Scarlet/eTransmitting on:?06/04/2024 01:27 PM EDT
== END 2024-06-04 14:13 | disposition home or self-care (01) ==
LOC: HO.HMCHD 12:54
PROVIDERS: PCP Internal Medicine; Visit Provider Internal Medicine
DX: K52.9 Noninfective gastroenteritis and colitis, unspecified (principal); I10 Essential (primary) hypertension; Z09 Encounter for follow-up examination after completed treatment for conditions other than malignant neoplasm; Z87.898 Personal history of other specified conditions; R79.89 Other specified abnormal findings of blood chemistry

== ENCOUNTER → 2024-06-04 12:54 | Outpatient (BNVA) | payer MEDICARE, MEDICAID, SELFPAY | PROVIDERS: PCP Internal Medicine; Visit Provider Internal Medicine | DX: Z09 Encounter for follow-up examination after completed treatment for conditions other than malignant neoplasm (principal); K52.9 Noninfective gastroenteritis and colitis, unspecified; I10 Essential (primary) hypertension; R79.89 Other specified abnormal findings of blood chemistry; Z79.899 Other long term (current) drug therapy; Z87.898 Personal history of other specified conditions | CPT/HCPCS: 96127; 99495 ==

== ENCOUNTER 2024-06-18 09:03 | Outpatient (REF) | payer MEDICARE, MEDICAID, SELFPAY ==
[2024-06-18 09:23] LABS: MANUAL DIFF FLAG NO
[2024-06-18 09:48] LABS: Basophils Percent Auto 0.4 % (0-2); Eosinophils Absolute Auto 0.2 X10*3/uL (0.0-0.4); Eosinophils Percent Auto 2.3 % (0-4); Hematocrit 36.2 % (37.0-47.0); Hemoglobin 12.7 g/dl (12.0-16.0); Imm Gran Abs Auto 0.01 X10*3/uL (0.00-0.03); Imm Gran Pct Auto 0.1 % (0.0-0.4); Lymphocytes Absolute Auto 1.8 X10*3/uL (1.2-4.9); Lymphocytes Percent Auto 24.3 % (20-40); Mean Corpuscular HGB Conc 35.1 g/dl (31.0-35.0); Mean Corpuscular Hemoglobin 30.4 pg (27.0-33.0); Mean Corpuscular Volume 86.6 fL (80.0-98.0); Mean Platelet Volume 11.6 fL (9.4-12.3); Monocytes Absolute Auto 0.5 X10*3/uL (0.1-1.2); Monocytes Percent Auto 7.1 % (2-11); Neutrophils Absolute Auto 4.8 x10*3/uL (2.0-8.3); Neutrophils Percent Auto 65.8 % (45-73); Platelet Count 231 X10*3/uL (160-400); Red Blood Count 4.18 X10*6/uL (4.20-5.50); Red Cell Distribution Width 13.1 % (11.0-16.0); White Blood Count 7.3 X10*3/uL (4.8-10.8)
[2024-06-18 10:30] LABS: Alanine Aminotransferase 55 U/L (0-31); Alkaline Phosphatase 152 U/L (39-117); Anion Gap 9 (12-20); Aspartate Amino Transferase 41 U/L (5-31); Bilirubin Total 0.6 mg/dL (0.0-1.0); Blood Urea Nitrogen 17 mg/dL (9-16); Calcium 9.2 mg/dL (8.4-10.2); Carbon Dioxide 31 mmol/L (22-29); Chloride 102 mmol/L (96-108); Cholesterol 234 mg/dL (<200); Estimated Glomerular Filt Rate > 60; Glucose Random 88 mg/dL (60-115); HDL Cholesterol 59 mg/dL (>40); Iron 88 mcg/dL (30-160); LDL Cholesterol Calculated 157 mg/dL (<100); Percent Iron Saturation 29 % (15-50); Sodium 139 mmol/L (135-145); Total Iron Binding Capacity 300 mcg/dL (228-428); Total Protein 7.1 g/dL (6.5-8.0); Triglycerides 90 mg/dL (<150); Unsaturated Iron Binding 212 ug/dL
[2024-06-18 10:50] LABS: HBc Num1 0.07 S/CO (0.00-0.79); HBsAGNum1 0.35 S/CO (0.00-0.99); Hepatitis B Core Antibody Nonreactive (Nonreactive); ~HepC Num1 0.13 S/CO (0.00-0.79); ~Hepatitis B Surface Antibody NONREACTIVE (Nonreactive); ~Hepatitis C Antibody Nonreactive (Nonreactive)
[2024-06-18 10:51] LABS: Hepatitis B Surface Antigen Negative (Negative)
[2024-06-22 07:59] LABS: Hepatitis A Antibody IgM 0.09 Index (0-0.79); ~Hepatitis A Antibody IgM Nonreactive (Nonreactive)
== END 2024-06-18 09:04 | disposition home or self-care (01) ==
LOC: HO.LAB 09:03
PROVIDERS: PCP Internal Medicine; Visit Provider Internal Medicine
DX: K52.9 Noninfective gastroenteritis and colitis, unspecified (principal); R79.89 Other specified abnormal findings of blood chemistry; D64.9 Anemia, unspecified; R12 Heartburn
CPT/HCPCS: 36415; 80053; 80061; 83540; 85025; 86704; 86706; 86709; 86803; 87340

== ENCOUNTER 2024-07-21 16:43 | Observation (INO) | payer MEDICARE, MEDICAID, SELFPAY ==
[2024-07-21 16:54] VITALS: BP 132/68; PULSE 62; O2SAT 98
[2024-07-21 17:03] VITALS: BP 173/75; PULSE 67; RESP 18; TEMP 36.6; O2SAT 98; BMI 36.5
--- NOTE | 2024-07-21 17:11 | ED_ITS ---
HPI - Allergic Reaction General Chief complaint: Allergic Reaction Stated complaint: facial swelling Time Seen by Provider: 07/21/24 17:11 Source: patient Mode of arrival: ambulatory Limitations: no limitations History of Present Illness ED Provider: HPI narrative: patient is 69 years old with history of cleft palate hypertension multiple allergies , heriditary angioedema with C1 inhibitor deficiency on p.r.n.Benadryl and prednisone comes here with localized angioedema of lower lip, denies any contact with known allergens denies any difficulty breathing no rash anywhere else patient took 3 Benadryl tablets prior to arrival patient is admitted in 05/19/2024 for similar reasons and was given Berinert C1 inhibitor concentrate in 05/18 Related Data Home Medications ?Medication ?Instructions ?Recorded ?Confirmed cetirizine 10 mg capsule (Zyrtec) 10 mg PO DAILY PRN Allergy Symptoms 10/23/20 07/21/24 hydrochlorothiazide 25 mg tablet 1 tab PO DAILY 10/23/20 07/21/24 albuterol sulfate 90 mcg/actuation 2 puff inhalation Q6H PRN 05/19/24 07/21/24 aerosol inhaler (Ventolin HFA) Shortness Of Breath Or Wheezing cholecalciferol (vitamin D3) 25 25 mcg PO DAILY 05/19/24 07/21/24 mcg (1,000 unit) capsule famotidine 20 mg tablet 20 mg PO BID@0630,1630 05/19/24 07/21/24 fluticasone propionate 50 2 spray intranasal DAILY 05/19/24 07/21/24 mcg/actuation nasal spray,suspension montelukast 10 mg tablet 10 mg PO DAILY 05/19/24 07/21/24 diphenhydramine HCl 25 mg capsule 25 mg PO TID PRN Allergy Symptoms 07/21/24 07/21/24 (Benadryl) latanoprost 0.005 % eye drops 1 drp ophthalmic (eye) BEDTIME 07/21/24 07/21/24 pediatric multivitamin no.49 2 tab PO DAILY 07/21/24 07/21/24 (Flintstones Gummies chewable tablet) Allergies Allergy/AdvReac Type Severity Reaction Status Date / Time apple [APPLE] Allergy Severe FACIAL Verified 07/21/24 17:04 SWELLING lisinopril [LISINOPRIL] Allergy Severe FACIAL Verified 07/21/24 17:04 SWELLING metoprolol [METOPROLOL] Allergy Severe FACIAL Verified 07/21/24 17:04 SWELLING, facial swelling with any bp med nut - unspecified [NUTS] Allergy Severe Facial Verified 07/21/24 17:04 Swelling pectin [PECTIN] Allergy Severe Facial Verified 07/21/24 17:04 Swelling triamterene [TRIAMTERENE] Allergy Severe FACIAL Verified 07/21/24 17:04 SWELLING DAIRY PRODUCTS Allergy Severe Facial Uncoded 06/04/24 13:07 Swelling Review of Systems 2 Review of Systems: Yes all other systems are reviewed and are negative COUNTS INCLUDE 234 BEDS AT THE [facility] Past Medical History Medical History Anxiety Hx of hypoglycemia Arthritis IBS (irritable bowel syndrome) Glaucoma Hx of cardiac murmur Heartburn Hiatal hernia Hx of cleft palate with cleft lip Surgical History Hx of cholecystectomy Hx of colonoscopy History of esophagogastroduodenoscopy (EGD) Hx of bilateral breast reduction surgery H/O rhinoplasty Family History Family History Mother No problems noted. Father No problems noted. Social History Social History Housing: Apartment Do you presently have visiting nurse or other home services: Yes (housekeeping every other ) Alcohol intake: never Patient Tobacco Use Status: Never used Tobacco Smoked in Last 30 Days: No e-Cigarette/Vaping Use: Never Used Use of substances other than those prescribed or required for medical reasons: No Advance Directives: No Advance Directives Information Provided: No Patient : No service: No Current occupational status: retired Cognitive needs: No Hearing needs: No Vision needs: Yes (reading glasses) Physical Exam ED Vital Signs: Vital Signs - 24 hr 07/21/24 17:03 07/21/24 18:19 07/21/24 20:20 Temperature 97.9 F 97.9 F 97.6 F Pulse Rate 67 72 71 Respiratory Rate 18 14 20 Blood Pressure 173/75 H 165/85 H 160/90 H Pulse Oximetry 98 98 98 Oxygen Delivery Method Room Air Room Air BMI result Body Mass Index 36.5 Appearance: Alert. Oriented X3. No acute distress. Eyes: no pallor or icterus ENT: Pharynx normal. Oral Mucosa moist localized swelling of the lower lip on the right side uvula normal Neck: Normal inspection. Neck supple. CVS: Normal heart rate and rhythm. Pulses normal. Respiratory: No respiratory distress. Equal air entry bilateral, no wheezing/rales/rhonchi Abdomen: Soft and nontender. Bowel sounds are present, no mass palpable, no CVA tenderness Skin: Skin warm and dry. Normal skin color. Normal skin turgor. Extremities: No lower extremity edema. No calf tenderness Neuro: Oriented X 3. Medications Administered Generic Name Dose Route Start Last Admin Trade Name Freq PRN Reason Stop Dose Admin Sodium Chloride 3 ml 07/22/24 00:00 07/22/24 00:14 0.9 % Sodium Chloride Flush 3 Ml Syringe IVFLUSH 3 ml QSHIFT ROLDAN Administration Discontinued Medications Generic Name Dose Route Start Last Admin Trade Name Freq PRN Reason Stop Dose Admin Dexamethasone Sodium Phosphate 10 mg 07/21/24 20:15 07/21/24 20:26 Dexamethasone Sod Phosphate 10 Mg/Ml Vial IVPUSH 07/21/24 20:16 10 mg ONCE ONE Administration Diphenhydramine HCl 25 mg 07/21/24 17:14 07/21/24 17:20 Diphenhydramine Hcl 50 Mg/Ml Vial IVPUSH 07/21/24 17:15 25 mg ONCE ONE Administration Diphenhydramine HCl 25 mg 07/21/24 20:15 07/21/24 20:26 Diphenhydramine Hcl 50 Mg/Ml Vial IVPUSH 07/21/24 20:16 25 mg ONCE ONE Administration Famotidine 20 mg 07/21/24 17:14 07/21/24 17:20 Famotidine/Pf 20 Mg/2 Ml Vial IVPUSH 07/21/24 17:15 20 mg ONCE ONE Administration C1 Esterase Inhibitor (Human) 10 mls @ 240 mls/hr 07/21/24 23:00 07/22/24 00:00 500 unit/ IV Miscellaneous IVPUSH 07/21/24 23:02 240 mls/hr Supplies ONCE ONE Administration Methylprednisolone Sodium Succinate 125 mg 07/21/24 17:14 07/21/24 17:20 Methylprednisolone Sod Succ 125 Mg Vial IVPUSH 07/21/24 17:15 125 mg ONCE ONE Administration Medical Decision Making Medical Decision Making [facility] Narrative: 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 Piedad Dailey no voicemail no answering service Patient has received only 500 units of Berinart will get remaining in a.m. Differential Diagnosis Differential Diagnoses: The differential diagnosis associated with the presentation includes Consult Healthcare Provider Management of the patient was discussed with: Hospitalist Discharge Plan Discharge Clinical Impression: Angioedema Qualifiers: Encounter type: subsequent encounter Qualified Code(s): T78.3XXD - Angioneurotic edema, subsequent encounter Patient Disposition: Admitted As Inpatient
[2024-07-21] MEDS: diphenhydrAMINE HCL 50 MG/ML VIAL 25 MG IVPUSH ×2 (17:20→20:26)
[2024-07-21] MEDS: Famotidine/PF 20 MG/2 ML VIAL IVPUSH (17:20)
[2024-07-21 18:19] VITALS: BP 165/85; PULSE 72; RESP 14; TEMP 36.6; O2SAT 98
[2024-07-21 20:20] VITALS: BP 160/90; PULSE 71; RESP 20; TEMP 36.4; O2SAT 98
[2024-07-21] MEDS: dexAMETHasone sod phosphate 10 MG/ML VIAL IVPUSH (20:26)
--- NOTE | 2024-07-21 22:39 | PHA.MEDREC ---
Addendum entered by Melinda Sheffield RPh 07/21/24 22:55: Reviewed by [facility] Original Note: Pharmacy Consult ? Medication Reconciliation Pharmacy has completed the medication reconciliation. Pt confirmed her medications. Pt confirmed she has been taking OTC Famotidine 20mg tab and was taking it QD but states in the past few weeks she has been taking 2 tabs daily for the heartburn with still little to no relief.
[2024-07-21 22:43] VITALS: BP 148/81; PULSE 64; RESP 16; TEMP 36.7; O2SAT 97
--- NOTE | 2024-07-21 23:25 | PM.IMHP ---
History of Present Illness Date of Service: 07/21/24 Attending physician on admission: Kassandra Oliveira Chief Complaint: Lip swelling Patient is a 69-year-old female with past medical history angioedema, glaucoma, cholecystectomy, C1 deficiency, hypertension, GERD, constipation presents to the emergency department via ambulance with progressive lip swelling that is started in the upper lip, resolved with Benadryl and then the lower lip became more inflamed. Patient also offered that she had some mild tingling in the mouth area. Patient denied any stridor, respiratory distress or anxiety associated with symptoms. Per emergency rooms no patient took Benadryl at 05:00 than 08:00 and then 15:00. Patient had very minimal improvement. After thorough interview with patient, the culprit may be strawberry jam that patient ate in the last 3 days. Pectin ss listed as an allergen and patient educated that strawberry jam contains pectin. Patient now states she will no longer eat strawberry jam. Patient was also out to eat and was at the cemetery bringing [place] to her mother's grave. Patient does not believe she was exposed to any other allergens. Patient having no obvious issues with swallowing and is requesting diet as she is hungry. Diet has been ordered. Oral care has also been ordered. ED provider has made arrangements for C1 esterase inhibitor to be delivered from [facility] for IV administration. Patient has yet to receive the medication but is currently stable hemodynamically and airway is patent. Review of Systems Review of Systems: Patient denies any chest pain, shortness of breath at rest or with exertion. Patient states mild tingling in her lower lip continues with noted swelling. The upper lip is no longer swollen per patient. Patient denies any headache, visual changes. Patient does report a bug bite in the upper forehead area. Yes all other systems are reviewed and are negative [facility] Medical History Anxiety Hx of hypoglycemia Arthritis IBS (irritable bowel syndrome) Glaucoma Hx of cardiac murmur Heartburn Hiatal hernia Hx of cleft palate with cleft lip Cognitive capacity: Alert and orientated x3 Functional capacity: independent ambulation Patient : No Family History Mother No problems noted. Father No problems noted. Surgical History Hx of cholecystectomy Hx of colonoscopy History of esophagogastroduodenoscopy (EGD) Hx of bilateral breast reduction surgery H/O rhinoplasty Social History Housing: Apartment Do you presently have visiting nurse or other home services: Yes (housekeeping every other ) Alcohol intake: never Patient Tobacco Use Status: Never used Tobacco e-Cigarette/Vaping Use: Never Used service: No Current occupational status: retired Cognitive needs: No Hearing needs: No Vision needs: Yes (reading glasses) Ebola Risk: Travel/Contact With Anyone From Affected Area/s: No Has Patient Experienced Ebola Symptoms: No Meds Allergies Allergy/AdvReac Type Severity Reaction Status Date / Time apple [APPLE] Allergy Severe FACIAL Verified 07/21/24 17:04 SWELLING lisinopril [LISINOPRIL] Allergy Severe FACIAL Verified 07/21/24 17:04 SWELLING metoprolol [METOPROLOL] Allergy Severe FACIAL Verified 07/21/24 17:04 SWELLING, facial swelling with any bp med nut - unspecified [NUTS] Allergy Severe Facial Verified 07/21/24 17:04 Swelling pectin [PECTIN] Allergy Severe Facial Verified 07/21/24 17:04 Swelling triamterene [TRIAMTERENE] Allergy Severe FACIAL Verified 07/21/24 17:04 SWELLING DAIRY PRODUCTS Allergy Severe Facial Uncoded 06/04/24 13:07 Swelling Active Medications: Current Medications C1 Esterase Inhibitor (Human) 500 unit/ IV Miscellaneous Supplies 10 mls @ 240 mls/hr IVPUSH ONCE ONE Stop: 07/21/24 23:02 Home Medications ?Medication ?Instructions ?Recorded ?Confirmed ?Last Taken ?Type cetirizine 10 mg capsule (Zyrtec) 10 mg PO DAILY PRN Allergy Symptoms 10/23/20 07/21/24 Unknown History hydrochlorothiazide 25 mg tablet 1 tab PO DAILY 10/23/20 07/21/24 07/21/24 History albuterol sulfate 90 mcg/actuation 2 puff inhalation Q6H PRN 05/19/24 07/21/24 Unknown History aerosol inhaler (Ventolin HFA) Shortness Of Breath Or Wheezing cholecalciferol (vitamin D3) 25 25 mcg PO DAILY 05/19/24 07/21/24 07/21/24 History mcg (1,000 unit) capsule famotidine 20 mg tablet 20 mg PO BID@0630,1630 05/19/24 07/21/24 07/21/24 History fluticasone propionate 50 2 spray intranasal DAILY 05/19/24 07/21/24 07/21/24 History mcg/actuation nasal spray,suspension montelukast 10 mg tablet 10 mg PO DAILY 05/19/24 07/21/24 07/21/24 History diphenhydramine HCl 25 mg capsule 25 mg PO TID PRN Allergy Symptoms 07/21/24 07/21/24 Unknown History (Benadryl) latanoprost 0.005 % eye drops 1 drp ophthalmic (eye) BEDTIME 07/21/24 07/21/24 07/20/24 History pediatric multivitamin no.49 2 tab PO DAILY 07/21/24 07/21/24 07/21/24 History (Flintstones Gummies chewable tablet) Physical Exam Vital Signs and Narrative: Vital Signs: Last Vital Signs Temp 98.0 F 07/21/24 22:43 Pulse 64 07/21/24 22:43 Resp 16 07/21/24 22:43 BP 148/81 H 07/21/24 22:43 Pulse Ox 97 07/21/24 22:43 O2 Del Method Room Air 07/21/24 22:43 BMI result Body Mass Index 36.5 Alert and orientated X3, able to give good history. Speech partly impaired due to lower lip swelling. Neuro: CN II-X11 intact, no deficits, visual acuity intact EYES: PERRLA, EOM intact, conjunctiva pink, glasses on ENT: hearing intact, no issues with swallowing, uvula midline, chelation noted, Lower lip edema present, tongue normal in size, nares patent no epistaxis Cardiac: S1 S2 RRR, mild systolic murmur, no JVD, no edema in Lower ext Pulmonary: lungs clear to auscultation B Abdominal: BS active in all 4 quadrants, no guarding, tenderness, rebounding MSK: strength 5/5 upper and lower extremities : no CVA tenderness no bladder distension Extremities: no edema in lower extremities, PT and DP pulses palpable +2 Psych: mood stable, judgement and insight good Skin: Bug bite forehead Assessment and Plan (1) Angioedema: Qualifiers: Encounter type: subsequent encounter Qualified Code(s): T78.3XXD - Angioneurotic edema, subsequent encounter Status: Acute Plan Patient is a 69-year-old female with past medical history angioedema, glaucoma, cholecystectomy, C1 deficiency, hypertension, GERD, constipation being admitted under observation for angioedema involving the lower lip. Suspect allergen was strawberry jam which contains pectin which patient most recently. Angioedema -C1 esterase inhibitor is being delivered by [facility], patient will receive 1 dose -patient is able to protect her airway, no issues with stridor or hypoxia and remains hemodynamically stable -patient educated on possible allergen including strawberry jam which does contain pectin which is listed as patient's allergy -observe overnight -patient educated to follow up with her healthcare applications analyst in the outpatient setting Glaucoma -latanoprost ordered DVT prophylaxis: Lovenox Med rec pending Full Code status Quality Stroke Does the patient have a stroke diagnosis?: No Reason for No Anti-thrombotic by Day Two: N/A - Med Ordered VTE Prior VTE?: No VTE Risk Level:: Medical - moderate - high VTE Device Contraindication: N/A - Device Ordered VTE Drug Contraindication: N/A - Med Ordered
[2024-07-22] VITALS (7 sets, daily range): BP systolic 130–163; BP diastolic 71–91; PULSE 57–85; RESP 12–18; TEMP 36.1–36.4; O2SAT 97–99; BMI 34.9
[2024-07-22] MEDS: 0.9 % Sodium Chloride Flush 3 ML SYRINGE IVFLUSH ×4 (00:14→23:09)
--- NOTE | 2024-07-22 00:17 | PC.NURSE ---
This RN assumed pt care @ 2300. Pt reports 09/02 headache Pt medicated per apr Plan of care ongoing.
[2024-07-22 01:23] LABS: Basophils Percent Auto 0.2 % (0-2); Eosinophils Percent Auto 0.2 % (0-4); Hematocrit 38.9 % (37.0-47.0); Hemoglobin 13.3 g/dl (12.0-16.0); Imm Gran Abs Auto 0.03 X10*3/uL (0.00-0.03); Imm Gran Pct Auto 0.5 % (0.0-0.4); Lymphocytes Absolute Auto 0.7 X10*3/uL (1.2-4.9); MANUAL DIFF FLAG NO; Mean Corpuscular HGB Conc 34.2 g/dl (31.0-35.0); Mean Corpuscular Hemoglobin 29.8 pg (27.0-33.0); Mean Platelet Volume 11.2 fL (9.4-12.3); Monocytes Absolute Auto 0.1 X10*3/uL (0.1-1.2); Monocytes Percent Auto 0.8 % (2-11); Neutrophils Absolute Auto 5.9 x10*3/uL (2.0-8.3); Neutrophils Percent Auto 88.3 % (45-73); Platelet Count 216 X10*3/uL (160-400); Red Blood Count 4.47 X10*6/uL (4.20-5.50); Red Cell Distribution Width 13.1 % (11.0-16.0); White Blood Count 6.6 X10*3/uL (4.8-10.8)
[2024-07-22 01:43] LABS: Alanine Aminotransferase 58 U/L (0-31); Albumin Level 3.9 g/dL (3.5-5.0); Anion Gap 15 (12-20); Aspartate Amino Transferase 51 U/L (5-31); Bilirubin Total 0.7 mg/dL (0.0-1.0); Blood Urea Nitrogen 18 mg/dL (9-16); Calcium 9.5 mg/dL (8.4-10.2); Carbon Dioxide 25 mmol/L (22-29); Chloride 102 mmol/L (96-108); Creatinine Clr Calc Pharmacy 52.8; Estimated Glomerular Filt Rate 53; Glucose Random 148 mg/dL (60-115); Potassium 3.5 mmol/L (3.3-5.1); Sodium 138 mmol/L (135-145); Total Protein 7.1 g/dL (6.5-8.0)
[2024-07-22 02:06] LABS: Alkaline Phosphatase 149 U/L (39-117)
--- NOTE | 2024-07-22 03:08 | PC.NURSE ---
Pts sister/HCP called for update This RN spoke with sister Dottie Romero Plan of care ongoing.
--- NOTE | 2024-07-22 04:57 | PC.NURSE ---
Pt a&ox4, no signs of distress. Pt requested and given drink Pt denies pain at this time Plan of care ongoing.
[2024-07-22] MEDS: Enoxaparin Sodium 40 MG/0.4 ML SYRINGE SUBCUT (08:14)
[2024-07-22] MEDS: Montelukast Sodium 10 MG TABLET PO (09:16)
[2024-07-22] MEDS: Cholecalciferol (Vitamin D3) 25 MCG TABLET PO (09:16)
[2024-07-22] MEDS: Loratadine 10 MG TABLET PO (09:17)
[2024-07-22] MEDS: hydroCHLOROthiazide 25 MG TABLET PO (09:18)
[2024-07-22] MEDS: Fluticasone Propionate Nasal 16 GM SPRAY 2 SPRAY NOSTRIL-B (10:38)
--- NOTE | 2024-07-22 12:05 | P.PNIM_ITS ---
Subjective Subjective Date of Service: 07/22/24 Interval History: seen and evaluated still reporting swelling in lower lip able to swallow no problems breathing Review of Systems Review of Systems: Yes all other systems are reviewed and are negative Physical Exam 2 Vital Signs: Vital Signs: Last Vital Signs Temp 97.5 F 07/22/24 08:00 Pulse 81 07/22/24 08:00 Resp 14 07/22/24 08:00 BP 130/71 07/22/24 09:18 Pulse Ox 99 07/22/24 08:00 O2 Del Method Room Air 07/22/24 08:00 BMI result Body Mass Index 36.5 Const: Other: Constitutional : interactive, not in distress Cardiovascular : no JVP, no lower extremity edema Respiratory : bilateral chest movement, not in resp distress Gastrointestinal: soft, lax, Non tender Skin : Warm, Dry Facial: swollen lower lip with mild erythema, clear throat and tongue Neurological : Alert & oriented , No focal deficit Objective Data Active Medications Acetaminophen (Acetaminophen 325 Mg Tablet) 650 mg PO Q6H PRN PRN Reason: Pain, Mild 1-3,fever,headache Albuterol Sulfate (Albuterol Sulfate 90 Mcg 8 Gm Inhaler) 2 puff INHALE Q6H PRN PRN Reason: Shortness Of Breath Or Wheezing Albuterol/Ipratropium (Albuterol/Iprat 2.5/0.5mg 3 Ml Ampul.Neb) 3 ml INHALE Q4H PRN PRN Reason: Shortness of Breath/Wheezing Calcium Carbonate (Calcium Carbonate 750 Mg Tab.Chew) 750 mg PO Q4H PRN PRN Reason: Heartburn Diphenhydramine HCl (Diphenhydramine Hcl 25 Mg Capsule) 25 mg PO TID PRN PRN Reason: Allergy Symptoms Enoxaparin Sodium (Enoxaparin Sodium 40 Mg/0.4 Ml Syringe) 40 mg SUBCUT Q24H [facility] Last Admin: 07/22/24 08:14 Dose: 40 mg Documented By: INDU Fluticasone Propionate (Fluticasone Propionate Nasal 16 Gm [place]) 2 spray NOSTRIL-B DAILY [facility] Last Admin: 07/22/24 10:38 Dose: 2 spray Documented By: INDU Hydrochlorothiazide (Hydrochlorothiazide 25 Mg Tablet) 25 mg PO DAILY [facility]; Protocol Last Admin: 07/22/24 09:18 Dose: 25 mg Documented By: INDU Latanoprost (Latanoprost 0.005 % Ophth Staci 2.5 Ml Drops) 1 drop EYE-BOTH BEDTIME [facility] Loratadine (Loratadine 10 Mg Tablet) 10 mg PO DAILY [facility] Last Admin: 07/22/24 09:17 Dose: 10 mg Documented By: INDU Magnesium Hydroxide (Milk Of Magnesia 30 Ml Oral.Susp) 30 ml PO DAILY PRN PRN Reason: Constipation Melatonin (Melatonin 3 Mg Tablet) 6 mg PO BEDTIME PRN PRN Reason: Insomnia Montelukast Sodium (Montelukast Sodium 10 Mg Tablet) 10 mg PO DAILY [facility] Last Admin: 07/22/24 09:16 Dose: 10 mg Documented By: INDU Ondansetron HCl (Ondansetron Hcl 4 Mg/2 Ml Vial) 4 mg IVPUSH Q8H PRN PRN Reason: Nausea and Vomiting Senna (Sennosides 8.6 Mg Tablet) 17.2 mg PO BEDTIME [facility] Sodium Chloride (0.9 % Sodium Chloride Flush 3 Ml Syringe) 3 ml IVFLUSH QSHIFT [facility] Last Admin: 07/22/24 08:13 Dose: 3 ml Documented By: INDU Vitamin D (Cholecalciferol (Vitamin D3) 25 Mcg Tablet) 25 mcg PO DAILY [facility] Last Admin: 07/22/24 09:16 Dose: 25 mcg Documented By: INDU Labs 07/22/24 00:57 07/22/24 00:57 Labs: Laboratory Results - last 24 hr 07/22/24 00:57 MCV 87.0 MCH 29.8 MCHC 34.2 RDW 13.1 Plt Count 216 MPV 11.2 Immature Gran % (Auto) 0.5 H Neut % (Auto) 88.3 H Lymph % (Auto) 10.0 L Rooks % (Auto) 0.8 L Eos % (Auto) 0.2 Baso % (Auto) 0.2 Lymph # (Auto) 0.7 L Rooks # (Auto) 0.1 Eos # (Auto) 0.0 Baso # (Auto) 0.0 Abs Immat Gran (auto) 0.03 Absolute Neuts (auto) 5.9 Absolute Nucleated RBC 0.000 Nucleated RBC % (auto) 0.0 Anion Gap 15 Estim Creat Clear Calc 52.8 Estimated GFR 53 Random Glucose 148 H Calcium 9.5 Total Bilirubin 0.7 AST 51 H ALT 58 H Alkaline Phosphatase 149 H Total Protein 7.1 Albumin 3.9 Assessment and Plan (1) Angioedema: Status: Acute Plan Patient is a 69-year-old female with past medical history angioedema, glaucoma, cholecystectomy, C1 deficiency, hypertension, GERD, constipation being admitted under observation for angioedema involving the lower lip. Suspect allergen was strawberry jam which contains pectin which patient most recently. swollen lips with hx of Angioedema C1 esterase inhibitor partial dose given in ED, to give rest of it today (1500 unit) no issues with stridor or hypoxia and remains hemodynamically stable observe today Continue Benadryl PRN Claritin daily PRednisone 40 mg Singulair and Famotidine home dose Glaucoma latanoprost ordered DVT prophylaxis: Lovenox Full Code status Quality Stroke Does the patient have a stroke diagnosis?: No Reason for No Anti-thrombotic by Day Two: N/A - Med Ordered VTE Prior VTE?: No VTE Risk Level:: Medical - moderate - high VTE Device Contraindication: N/A - Device Ordered VTE Drug Contraindication: N/A - Med Ordered
--- NOTE | 2024-07-22 12:32 | MHC.CM.PN ---
CM met with Patient at bedside, in the ED, and addressed TRIPP with her, providing Patient with the original and a copy will be placed on the chart. Patient lives alone in an apartment and she has a Homemaker through [facility]. Home is Patient's goal and CM has initiated and will follow for dc planning. PCP is Dr. Ivette Baca and a Friend or the shuttle will provide transportation to home at dc.Sister/Dottie is the HCP .
[2024-07-22] MEDS: predniSONE 20 MG TABLET 40 MG PO (12:46)
[2024-07-22] MEDS: Famotidine 20 MG TABLET PO ×2 (12:46→17:10)
[2024-07-22] MEDS: C1 ESTERASE INHIBITOR 240 UNIT IVPUSH ×4 (16:05→16:09)
[2024-07-22] MEDS: Acetaminophen 325 MG TABLET 650 MG PO (17:12)
--- NOTE | 2024-07-22 19:16 | PC.NURSE ---
assumed care of patient at 1900. report received from Emily MCLAUGHLIN
[2024-07-22] MEDS: Sennosides 8.6 MG TABLET 17.2 MG PO (22:56)
[2024-07-22] MEDS: Latanoprost 0.005 % Ophth Sol 2.5 ML DROPS 1 DROP EYE-BOTH (23:09)
[2024-07-23] VITALS: BP 139/72; PULSE 57; RESP 16; TEMP 36.6; O2SAT 98
[2024-07-23 04:00] VITALS: BP 137/75; PULSE 60; RESP 16; TEMP 36.4; O2SAT 98
[2024-07-23] MEDS: Famotidine 20 MG TABLET PO (05:42)
[2024-07-23] MEDS: diphenhydrAMINE HCL 25 MG CAPSULE PO (05:43)
[2024-07-23 07:17] VITALS: BP 139/66; PULSE 60; RESP 18; TEMP 36.4; O2SAT 98
[2024-07-23 07:39] LABS: MANUAL DIFF FLAG NO
[2024-07-23 07:49] LABS: Basophils Percent Auto 0.1 % (0-2); Hematocrit 36.4 % (37.0-47.0); Hemoglobin 12.7 g/dl (12.0-16.0); Imm Gran Abs Auto 0.05 X10*3/uL (0.00-0.03); Imm Gran Pct Auto 0.5 % (0.0-0.4); Lymphocytes Absolute Auto 1.4 X10*3/uL (1.2-4.9); Lymphocytes Percent Auto 14.8 % (20-40); Mean Corpuscular HGB Conc 34.9 g/dl (31.0-35.0); Mean Corpuscular Hemoglobin 29.9 pg (27.0-33.0); Mean Corpuscular Volume 85.6 fL (80.0-98.0); Mean Platelet Volume 11.7 fL (9.4-12.3); Monocytes Absolute Auto 0.7 X10*3/uL (0.1-1.2); Monocytes Percent Auto 7.4 % (2-11); Neutrophils Absolute Auto 7.5 x10*3/uL (2.0-8.3); Neutrophils Percent Auto 77.2 % (45-73); Platelet Count 233 X10*3/uL (160-400); Red Blood Count 4.25 X10*6/uL (4.20-5.50); White Blood Count 9.8 X10*3/uL (4.8-10.8)
[2024-07-23 08:05] LABS: Anion Gap 12 (12-20); Blood Urea Nitrogen 25 mg/dL (9-16); Calcium 9.3 mg/dL (8.4-10.2); Carbon Dioxide 27 mmol/L (22-29); Chloride 101 mmol/L (96-108); Creatinine Clr Calc Pharmacy 48.7; Estimated Glomerular Filt Rate 50; Glucose Random 94 mg/dL (60-115); Sodium 137 mmol/L (135-145)
[2024-07-23 08:51] VITALS: BP 135/64
[2024-07-23] MEDS: predniSONE 20 MG TABLET 40 MG PO (08:51)
[2024-07-23] MEDS: Potassium Chloride ER 20 MEQ TAB.ER.PRT 40 MEQ PO (08:51)
[2024-07-23] MEDS: Cholecalciferol (Vitamin D3) 25 MCG TABLET PO (08:51)
[2024-07-23] MEDS: Montelukast Sodium 10 MG TABLET PO (08:51)
[2024-07-23] MEDS: Loratadine 10 MG TABLET PO (08:51)
[2024-07-23] MEDS: hydroCHLOROthiazide 25 MG TABLET PO (08:51)
[2024-07-23] MEDS: Enoxaparin Sodium 40 MG/0.4 ML SYRINGE SUBCUT (08:51)
[2024-07-23] MEDS: 0.9 % Sodium Chloride Flush 3 ML SYRINGE IVFLUSH (08:52)
[2024-07-23 11:06] VITALS: BP 144/81; PULSE 74; RESP 18; TEMP 36.6; O2SAT 97
--- NOTE | 2024-07-23 11:21 | P.DS_ITS ---
DS: Providers Provider Date of Service: 07/23/24 Date of admission: 07/21/24 21:48 Date of discharge: 07/23/24 Primary care physician: Ivette Baca MD DS: Diagnosis Discharge Diagnosis (1) Angioedema: Status: Acute (2) History of angioedema: Status: Acute DS: Summary Hospital Course Hospital Course: Admission note HPI Patient is a 69-year-old female with past medical history angioedema, glaucoma, cholecystectomy, C1 deficiency, hypertension, GERD, constipation presents to the emergency department via ambulance with progressive lip swelling that is started in the upper lip, resolved with Benadryl and then the lower lip became more inflamed. Patient also offered that she had some mild tingling in the mouth area. Patient denied any stridor, respiratory distress or anxiety associated with symptoms. Per emergency rooms no patient took Benadryl at 05:00 than 08:00 and then 15:00. Patient had very minimal improvement. After thorough interview with patient, the culprit may be strawberry jam that patient ate in the last 3 days. Pectin ss listed as an allergen and patient educated that strawberry jam contains pectin. Patient now states she will no longer eat strawberry jam. Patient was also out to eat and was at the cemetery bringing [place] to her mother's grave. Patient does not believe she was exposed to any other allergens. Patient having no obvious issues with swallowing and is requesting diet as she is hungry. Diet has been ordered. Oral care has also been ordered. ED provider has made arrangements for C1 esterase inhibitor to be delivered from [facility] for IV administration. Patient has yet to receive the medication but is currently stable hemodynamically and airway is patent. Hospital course The patient was admitted for treatment of swollen lips with hx of Angioedema. She received C1 esterase inhibitor partial dose of 500 units in ED, and received the rest of it 1500 unit after admissions as the medicaitons was ordered from other facility. no issues with stridor or hypoxia and remains hemodynamically stable. observed today with resolution of swelling and erythema as she received Benadryl PRN, Claritin daily, PRednisone 40 mg along with Singulair and Famotidine home dose. She will be discharged home on her home medicaitons on addition to 40 mg Prednisone. Advised to read the products before eating and make sure they dont have Pectin or nuts. Discharge plan Take Prednisone daily for 4 more days Benadryl twice a day for the next 3 days then as needed Avoid Pectin containing products Time Attestation Discharge Coordination Time (in mins): 26 Quality: Safe Use of Opioids Does Pt have an Active Cancer Diagnosis on the Problem List?: No Quality: Stroke Does the patient have a stroke diagnosis?: No Physical Exam Vital Signs: Vital Signs: Last Vital Signs Temp 97.8 F 07/23/24 11:06 Pulse 74 07/23/24 11:06 Resp 18 07/23/24 11:06 BP 144/81 H 07/23/24 11:06 Pulse Ox 97 07/23/24 11:06 O2 Del Method Room Air 07/23/24 11:06 BMI result Body Mass Index 34.9 Const: Other: Constitutional : Awake, interactive, not in distress Neck : Normal inspection, Supple Cardiovascular : RRR, no JVP, no lower extremity edema Respiratory : good bilateral air entry, no crackles, wheezes or rhonchi Gastrointestinal: soft, lax, Normal bowel sounds, Non tender Skin : Warm, Dry Neurological : Alert & oriented x3, No focal deficit DS: Data Data Completed and Pending Completed studies during hospitalization [Text1]: Procedures Transfusion of Nonautologous Frozen Plasma into Peripheral Vein, Percutaneous Approach (05/19/24) Labs on day of discharge: Laboratory Results - last 24 hr 07/23/24 07:16 WBC 9.8 RBC 4.25 Hgb 12.7 Hct 36.4 L MCV 85.6 MCH 29.9 MCHC 34.9 RDW 13.0 Plt Count 233 MPV 11.7 Immature Gran % (Auto) 0.5 H Neut % (Auto) 77.2 H Lymph % (Auto) 14.8 L Colbert % (Auto) 7.4 Eos % (Auto) 0.0 Baso % (Auto) 0.1 Lymph # (Auto) 1.4 Colbert # (Auto) 0.7 Eos # (Auto) 0.0 Baso # (Auto) 0.0 Abs Immat Gran (auto) 0.05 H Absolute Neuts (auto) 7.5 Absolute Nucleated RBC 0.000 Nucleated RBC % (auto) 0.0 Sodium 137 Potassium 3.0 L Chloride 101 Carbon Dioxide 27 Anion Gap 12 BUN 25 H Creatinine 1.10 Estim Creat Clear Calc 48.7 Estimated GFR 50 Random Glucose 94 Calcium 9.3 Discharge Plan Discharge Anticipated Discharge Date/Time: 07/23/24 11:07 Patient Disposition: Home, Self-Care Discharge Diagnosis: Allergic reaction; angioedema Referrals: Ivette Baca MD [Primary Care Provider] - 1 Week Discharge Medications: New prednisone 20 mg Tablet 40 mg PO DAILY Qty: 8 0RF Continued hydrochlorothiazide 25 mg tablet 1 tab PO DAILY Zyrtec 10 mg Capsule 10 mg PO DAILY PRN (Reason: Allergy Symptoms) montelukast 10 mg tablet 10 mg PO DAILY albuterol sulfate [Ventolin HFA] 90 mcg/actuation HFA aerosol inhaler 2 puff INHALATION Q6H PRN (Reason: Shortness Of Breath Or Wheezing) fluticasone propionate 50 mcg/actuation Spout Spring,Suspension 2 spray INTRANASAL DAILY Rx Instructions: administer into each nostril cholecalciferol (vitamin D3) 25 mcg (1,000 unit) Capsule 25 mcg PO DAILY famotidine 20 mg tablet 20 mg PO BID@0630,1630 latanoprost 0.005 % drops 1 drp ophthalmic (eye) BEDTIME diphenhydramine HCl [Benadryl] 25 mg Capsule 25 mg PO TID PRN (Reason: Allergy Symptoms) Flintstones Gummies Tablet,Chewable 2 tab PO DAILY Discharge Orders: Discharge Order (Routine); Ordered 07/23/24 Ordered By: Tj Brooks Diet: Advance to usual diet Activity on Discharge: As tolerated Stand Alone Forms: Patient Portal Discharge page Print Language: Slovenian Care Plan Goals: Take Prednisone daily for 4 more days Benadryl twice a day for the next 3 days then as needed Avoid Pectin containing products Health Concerns: Angioedema Plan of Treatment: Prednisone and Benadryl Assessment: as above Patient Instructions: Angioedema (GEN)
--- NOTE | 2024-07-23 11:26 | MHC.CM.PN ---
Pt has been medically cleared to [place], she will go home via [facility] shuttle, plan is self care.
== END 2024-07-23 12:23 | disposition home or self-care (01) ==
LOC: HO.ED 17:33 → HO.EDOVER 21:53 → HO.IMC 07-22 19:16
PROVIDERS: Nurse Practitioner Family; Admitting Provider Internal Medicine; Emergency Provider Internal Medicine; PCP Internal Medicine; Visit Provider Student in an Organized Health Care Education/Training Program
DX: T78.1XXA Other adverse food reactions, not elsewhere classified, initial encounter (principal); T78.3XXA Angioneurotic edema, initial encounter; K13.0 Diseases of lips; X58.XXXA Exposure to other specified factors, initial encounter; Y93.9 Activity, unspecified; Y92.9 Unspecified place or not applicable; Y99.9 Unspecified external cause status; D84.1 Defects in the complement system; R53.81 Other malaise; I10 Essential (primary) hypertension; K21.9 Gastro-esophageal reflux disease without esophagitis; K59.00 Constipation, unspecified; H40.9 Unspecified glaucoma; Z79.899 Other long term (current) drug therapy
CPT/HCPCS: 36415; 80048; 80053; 85025; 96372; 96374; 96375; 96376; 99222; 99285; J0597; J1100; J1200; J1308; J1650; J2919

== ENCOUNTER → 2024-07-21 21:48 | Outpatient (BNV) | payer MEDICARE, MEDICAID, SELFPAY | PROVIDERS: Admitting Provider Internal Medicine; Emergency Provider Internal Medicine; PCP Internal Medicine; Visit Provider Nurse Practitioner Family | DX: T78.3XXA Angioneurotic edema, initial encounter (principal) | CPT/HCPCS: 99222; 99232 ==

== ENCOUNTER 2024-08-19 10:31 | Outpatient (AMB) | payer MEDICARE, MEDICAID, SELFPAY ==
--- NOTE | 2024-08-19 09:24 | MHC.PC.OV ---
Vital Signs 08/19/24 10:33 Weight 185 lb BP 128/70 Blood Pressure Location Rt brachial Position Sitting Pulse 65 Pulse Source Pulse Oximeter Temp 98 F Temp Source Axillary Pulse Oximetry (%) 98 Oxygen Delivery Method Room Air Intake Visit Reasons: Routine Surveyor Helper Required: No Accompanied by: Self / Same As Patient Allergies apple (APPLE) Allergy (Severe, Verified 08/19/24 09:25) FACIAL SWELLING lisinopril (LISINOPRIL) Allergy (Severe, Verified 08/19/24 09:25) FACIAL SWELLING metoprolol (METOPROLOL) Allergy (Severe, Verified 08/19/24 09:25) FACIAL SWELLING, facial swelling with any bp med nut - unspecified (NUTS) Allergy (Severe, Verified 08/19/24 09:25) Facial Swelling pectin (PECTIN) Allergy (Severe, Verified 08/19/24 09:25) Facial Swelling triamterene (TRIAMTERENE) Allergy (Severe, Verified 08/19/24 09:25) FACIAL SWELLING DAIRY PRODUCTS Allergy (Severe, Uncoded 06/04/24 13:07) Facial Swelling Tobacco use date assessed: 08/19/24 Fall risk assessment: No Falls in past year Last assessed Fall Risk: 08/19/24 Dental Screening Dental Screen Date: 08/19/24 Did you have a dental visit in the last 12 months?: Yes Did you have a dental problem in the last 6 months where you did not have access to dental care?: No HPI HPI Comments History of Present Illness Details 69-year-old female with a past medical history of hypertension, hereditary angioedema, IBS, glaucoma, hiatal hernia, left palate, anxiety, arthritis, Recent hospitalization for allergic reaction, given infusion then discharged on prednisone and benadryl. Advised to avoid pectin. Hospitalized 05/19-05/21/24. CT small bowel enteritis. Treated with IVF, FFP. Seal Delivery Vehicle Officer consulted. Improved. Seen in urgent care for rash thereafter which has since resolved. Does have upcoming visit with her seasonal tax preparer next week. She has some residual abd bloating, discomfort, much improved since hospitalization. CV: On hctz 25mg. 128/70 Denies chest pain, denies increased exertional dyspnea. A&I: Following with Dr Patel. Visiting closely-Appt August 26. Mammo 05/2023 Colonoscopy 10/2020-follow up 5 years. [facility]. GI saw during hospitalization. ROS see HPI PHYSICAL EXAM: GENERAL: Alert and oriented x 3. NAD EYES: EOMI. Anicteric. HENT: Moist mucous membranes. No scleral icterus. No cervical lymphadenopathy. LUNGS: Clear to auscultation bilaterally. CARDIOVASCULAR: Regular rate and rhythm. No murmur. No JVD. ABDOMEN: Soft, non-tender +bs EXTREMITIES: No edema. Non-tender. SKIN: No rashes or lesions. Warm. NEUROLOGIC: No focal neurological deficits. CN II-XII grossly intact PSYCHIATRIC: Cooperative. Appropriate mood and affect [facility] Medical History (Updated 08/19/24 @ 13:54 by Ivette Baca MD) Anxiety Hx of hypoglycemia Arthritis IBS (irritable bowel syndrome) Glaucoma Hx of cardiac murmur Heartburn Hiatal hernia Hx of cleft palate with cleft lip Surgical History Hx of cholecystectomy Hx of colonoscopy (~10/27/20) History of esophagogastroduodenoscopy (EGD) Hx of bilateral breast reduction surgery H/O rhinoplasty Family History Mother No problems noted. Father No problems noted. Social History Household Members: None Housing: Apartment Do you presently have visiting nurse or other home services: No Alcohol intake: never Comment: refuse camera in room Patient Tobacco Use Status: Never used Tobacco e-Cigarette/Vaping Use: Never Used Second Hand Smoke Exposure: No service: No Current occupational status: retired Cognitive needs: No Hearing needs: No Vision needs: Yes (reading glasses) Questionnaire PHQ-9 Over the last 2 weeks, how often have you been bothered by any of the following problems? 1. Little interest or pleasure in doing things: not at all 2. Feeling down, depressed, or hopeless: not at all 3. Trouble falling or staying asleep, or sleeping too much: not at all 4. Feeling tired or having little energy: not at all 5. Poor appetite or overeating: not at all 6. Feeling bad about yourself - or that you are a failure or have let yourself or your family down: not at all 7. Trouble concentrating on things, such as reading the newspaper or watching television: not at all 8. Moving or speaking so slowly that other people could have noticed. Or the opposite - being so fidgety or restless that you have been moving around a lot more than usual: not at all 9. Thoughts that you would be better off or of hurting yourself in some way: not at all Total score: 0 Depression Screening Interpretation: Negative Depression Screening Done: Yes 27414 - PHQ-9 Billing: Yes Source: Developed by Drs. Scott Cherry, Breanna Castillo, Jase Kimbrough and colleagues, with an educational iliana from [employer]. Thrive Questionnaire Date Thrive assessed: 08/19/24 I am a: Patient Within the past 12 months, did the food you bought not last and you didn't have the money to get more?: Never true Within the past 12 months, did you worry whether your food would run out before you got money to buy more?: Never true Do you have trouble paying for medicines?: No Do you have trouble getting transportation to medical appointments?: No Do you have trouble paying your heating and electricity bill?: No Do you have trouble taking care of your child, family member or friend?: No Do you have trouble with day-to-day activities such as bathing, preparing meals, shopping, managing finances, etc.?: No Are you currently unemployed and looking for a job?: No Are you interested in more education?: No THRIVE Score: 0 AUDIT C Alcohol Use Questionnaire (AUDIT-C) 1. How often do you have a drink containing alcohol?: Never 3. How often do you have six or more drinks on one occasion?: Never Total Score: 0 JOSEPH-7 AMB Questionnaire JOSEPH-7 Date JOSEPH - 7 assessed: 08/19/24 Feeling nervous, anxious, or on edge: 0 = Not at all Not being able to stop or control worryin = Not at all Worrying too much about different things: 0 = Not at all Trouble relaxin = Not at all Being so restless that it is hard to sit still: 0 = Not at all Becoming easily annoyed or irritable: 0 = Not at all Feeling afraid as if something awful might happen: 0 = Not at all Total JOSEPH-7 score (0-4 normal; 5-9 mild; 10-14 moderate; 15-21 severe): 0 Source: Developed by Drs. Scott Cherry, Breanna Castillo, Jase Kimbrough and colleagues, with an educational iliana from [employer]. Physical exam (Primary Care) Vital Signs: Last Vital Signs Temp 98 F 08/19/24 10:33 Pulse 65 08/19/24 10:33 BP 128/70 08/19/24 10:33 Pulse Ox 98 08/19/24 10:33 Oxygen Delivery Method Room Air 08/19/24 10:33 Tobacco/Smoking Status: Tobacco use Status Tobacco use date assessed 08/19/24 08/19/24 09:26 Patient Tobacco Use Status Never used Tobacco 08/19/24 09:26 e-Cigarette/Vaping Use Never Used 08/19/24 09:26 PHQ-9: PHQ-9 Score PHQ-9: Total score 0 08/19/24 10:45 Depression Screening Interpretation: Negative Thrive Assessment: Date of Thrive Assessment Date Thrive assessed 08/19/24 08/19/24 10:39 Coding Level of Care Code Est Pt Level 4 (87226) Diagnoses Primary hypertension I10 Hypertension type: primary hypertension History of angioedema Z87.898 Additional Codes PHQ-9 - 85306 - PHQ-9 Billing: Yes ([id number]) Assessment & Plan Assessment & Plan (1) Hypertension: Code(s): I10 - Essential (primary) hypertension Category: Medical Qualifiers: Hypertension type: primary hypertension Qualified Code(s): I10 - Essential (primary) hypertension (2) History of angioedema: Code(s): Z87.898 - Personal history of other specified conditions Category: Medical Plan 69 year old for follow up Recent hospitalization for allergic reaction. Back to baseline Hypokalemia, recheck. She is on potassium at home, she is unsure of dosage HTN -well controlled Orders: Orders Basic Metabolic Panel Today E87.6 - Hypokalemia, I10 - Essential (primary) hypertension MMR IgG Measles Mumps Rubella Today Z13.0 - Encounter for screening for diseases of the blood and blood-forming organs and certain disorders involving the immune mechanism, Z13.228 - Encounter for screening for other metabolic disorders, Z13.29 - Encounter for screening for other suspected endocrine disorder Medications: Changed From hydrochlorothiazide 1 tab PO DAILY To hydrochlorothiazide 25 mg PO DAILY 90 tabs 3RF Refilled montelukast 10 mg PO DAILY 90 tabs 3RF
[2024-08-19 10:33] VITALS: BP 128/70; PULSE 65; TEMP 36.6; O2SAT 98
--- OUTSIDE RECORDS SUMMARY | 2024-08-19 12:18 | XMS_ITS | Patient Health Record ---
Author Organization [facility] Address [address] [place] [address] Care Team Providers Care Fish Housekeeper Name Role Phone Levi Manning MD Primary Care Provider Scott Mckenzie [phone] Allergies Allergen (clinical drug ingredient) Drug/Non Drug [...] Problem Status W/U Status Risk Notes Problem 910686296 Encounter for screening for malignant neoplasm of colon (Z12.11) Active confirmed Problem 780028895046020 Pre-procedural examination (Z01.818) Active confirmed Problem 94175599 Irritable bowel syndrome, unspecified type (K58.9) Active confirmed Problem Diverticulosis of colon (680341319) Diverticulosis of colon (K57.30) Active confirmed Encounters Encounter Location Date Provider Diagnosis [facility] [address] [place] [address] 05/29/2024 Scott Suazo Plan Of Treatment Future Test Test Name Order Date COLONOSCOPY 09/07/2020 Insurance Providers Payer Name Payer Address Payer Phone Subscriber Number Group Number Insured Name Patient Relationship to Insured Coverage Start Date Coverage End Date MEDICARE OF [place] [address] [place] [id number] [phone] [id number] JOAN ORTIZ Self - patient is the insured [facility] [address] [facility] [facility] [place] [phone] [id number] JOAN ORTIZ Self - patient is the insured Medical (General) History Medical History History ICD Code 07/26/2010 EGD-small hiatal hernia, normal duodenal biopsies, and mild gastritis but negative H. pylori Hypertension Denies [place],DM,CVA,Lung disease,renal dise ase Arthritis Colonoscopy in 07/2010-normal biopsies, without any sign of microscopic colitis--there were no polyps-there was some mild sigmoid diverticulosis and small internal hemorrhoids Bronchitis Eczema Irritable bowel syndrome Surgical History Surgery Date(Month/Year) Laparoscopic Cholecystectomy 2010 Cleft palate & nasal surgery Breast reduction
== END 2024-08-19 10:58 | disposition home or self-care (01) ==
LOC: HO.HMCHD 10:31
PROVIDERS: PCP Internal Medicine; Visit Provider Internal Medicine
DX: I10 Essential (primary) hypertension (principal); Z87.898 Personal history of other specified conditions

== ENCOUNTER → 2024-08-19 10:31 | Outpatient (BNVA) | payer MEDICARE, MEDICAID, SELFPAY | PROVIDERS: PCP Internal Medicine; Visit Provider Internal Medicine | DX: I10 Essential (primary) hypertension (principal); Z87.898 Personal history of other specified conditions; Z79.899 Other long term (current) drug therapy; Z13.31 Encounter for screening for depression; Z13.30 Encounter for screening examination for mental health and behavioral disorders, unspecified | CPT/HCPCS: 96127; 99212 ==

== ENCOUNTER 2024-08-19 11:06 | Outpatient (REF) | payer MEDICARE, MEDICAID, SELFPAY ==
[2024-08-19 13:51] LABS: Anion Gap 11 (12-20); Blood Urea Nitrogen 18 mg/dL (9-16); Calcium 8.9 mg/dL (8.4-10.2); Carbon Dioxide 30 mmol/L (22-29); Chloride 101 mmol/L (96-108); Estimated Glomerular Filt Rate 43; Glucose Random 90 mg/dL (60-115); Potassium 3.3 mmol/L (3.3-5.1); Sodium 139 mmol/L (135-145)
== END 2024-08-19 11:07 | disposition home or self-care (01) ==
LOC: HO.10HDL 11:06
PROVIDERS: Visit Provider Internal Medicine
DX: I10 Essential (primary) hypertension (principal); E87.6 Hypokalemia
CPT/HCPCS: 36415; 80048

== ENCOUNTER 2024-09-02 09:50 | Outpatient (REF) | payer MEDICARE, MEDICAID, SELFPAY ==
--- OUTSIDE RECORDS SUMMARY | 2024-09-02 10:23 | XMS_ITS | Patient Health Record ---
Author Organization [facility] Address [address] [place] [address] Care Team Providers Care Continuous Improvement Manager Name Role Phone Levi Manning MD Primary Care Provider Scott Mckenzie [phone] Allergies Allergen (clinical drug ingredient) Drug/Non Drug [...] Problem Status W/U Status Risk Notes Problem 262572939 Encounter for screening for malignant neoplasm of colon (Z12.11) Active confirmed Problem [id number] Pre-procedural examination (Z01.818) Active confirmed Problem 76275552 Irritable bowel syndrome, unspecified type (K58.9) Active confirmed Problem Diverticulosis of colon (714061889) Diverticulosis of colon (K57.30) Active confirmed Encounters Encounter Location Date Provider Diagnosis [facility] [address] [place] [address] 05/29/2024 Scott Suazo Plan Of Treatment Future Test Test Name Order Date COLONOSCOPY 09/07/2020 Insurance Providers Payer Name Payer Address Payer Phone Subscriber Number Group Number Insured Name Patient Relationship to Insured Coverage Start Date Coverage End Date MED[place]ARE OF [place] [address] [place] [id number] JOAN ORTIZ Self - patient is the insured MEDICAID OF [employer] [id number] [address] [facility] [place] [address] [id number] JOAN ORTIZ Self - patient is the insured Medical (General) History Medical History History ICD Code 07/26/2010 EGD-small hiatal hernia, normal duodenal biopsies, and mild gastritis but negative H. pylori Hypertension Denies [place],DM,CVA,Lung disease,renal dise ase Arthritis Colonoscopy in 07/2010-normal biopsies, without any sign of microscopic colitis--there were no polyps-there was some mild sigmoid diverticulosis and small internal hemorrhoids Bronchitis Eczema Irritable bowel syndrome Surgical History Surgery Date(Month/Year) Laparoscopic Cholecystectomy 2010 Cleft palate & nasal surgery Breast reduction
== END 2024-09-02 09:51 | disposition home or self-care (01) ==
LOC: HO.MAMMO 09:50
PROVIDERS: PCP Internal Medicine; Visit Provider Internal Medicine
DX: Z12.31 Encounter for screening mammogram for malignant neoplasm of breast (principal)
CPT/HCPCS: 77063; 77067

== ENCOUNTER → 2024-09-02 10:15 | Outpatient (BNV) | payer MEDICARE, MEDICAID, SELFPAY | PROVIDERS: PCP Internal Medicine; Visit Provider Radiology Body Imaging | DX: Z12.31 Encounter for screening mammogram for malignant neoplasm of breast (principal) | CPT/HCPCS: 77063; 77067 ==

== ENCOUNTER 2024-11-26 10:11 | Outpatient (AMB) | payer MEDICARE, MEDICAID, SELFPAY ==
--- NOTE | 2024-11-26 10:12 | MHC.PC.OV ---
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 Accompanied by: Self / Same As Patient Allergies apple (APPLE) Allergy (Severe, Verified 11/26/24 10:12) FACIAL SWELLING lisinopril (LISINOPRIL) Allergy (Severe, Verified 11/26/24 10:12) FACIAL SWELLING metoprolol (METOPROLOL) Allergy (Severe, Verified 11/26/24 10:12) FACIAL SWELLING, facial swelling with any bp med nut - unspecified (NUTS) Allergy (Severe, Verified 11/26/24 10:12) Facial Swelling pectin (PECTIN) Allergy (Severe, Verified 11/26/24 10:12) Facial Swelling triamterene (TRIAMTERENE) Allergy (Severe, Verified 11/26/24 10:12) FACIAL SWELLING DAIRY PRODUCTS Allergy (Severe, Uncoded 06/04/24 13:07) Facial Swelling Medication List - Last Reconciled 11/26/24 by Abdelrahman Dietrich MD albuterol sulfate 90 mcg/actuation (Ventolin HFA) 2 puffs inhalation Q6H PRN cetirizine (Zyrtec) 10 mg PO DAILY PRN cholecalciferol (vitamin D3) 25 mcg PO DAILY diphenhydramine HCl (Benadryl) 25 mg PO TID PRN famotidine 20 mg PO BID@0630,1630 fluticasone propionate 50 mcg/actuation 2 sprays intranasal DAILY PRN hydrochlorothiazide 25 mg PO DAILY latanoprost 0.005% 1 drp ophthalmic (eye) BEDTIME montelukast 10 mg PO DAILY pediatric multivitamin no.49 (Flintstones Gummies chewable tablet) 2 tabs PO DAILY prednisone 40 mg PO DAILY PRN walker (Ultra-Light Rollator misc) As directed Tobacco use date assessed: 06/04/24 Dental Screening Dental Screen Date: 06/04/24 HPI HPI Comments History of Present Illness Details The patient is a 69-year-old female presenting with lip swelling. The patient reports that she noticed swelling on the upper left side of her lip upon waking at 2:00 am. Subsequently, she experienced swelling on the right side of her lip. She self-administered two Benadryl tablets between 3:00 and 4:00 am and noticed an improvement in the left-side swelling. However, the right-side swelling persisted, albeit less severe than initially. The patient denies any respiratory difficulties. She suspects the swelling may not be allergy-related, noting her known allergies to nuts, dairy, and cheese. Instead, she suggests a possible mechanical cause, such as an injury from a plastic water bottle. The patient denies any recent intake of allergenic substances, intentional biting of the lip, or other known triggers. The patient's medication regimen includes antihistamines and other prescribed medications due to C1 inhibitor deficiency, indicative of Hereditary Angioedema. A routine blood work review indicated elevated cholesterol levels with a total cholesterol of 234 mg/dL and LDL cholesterol at 157 mg/dL. The patient acknowledges the need for dietary modifications to reduce cholesterol levels. 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) - Allergies: nut, dairy, cheese - Gastroesophageal reflux disease (GERD) Medications: - Albuterol inhaler as needed for respiratory symptoms - Zyrtec daily for allergies and C1 inhibitor deficiency - Benadryl as needed for allergy symptoms - Famotidine for gastroesophageal reflux disease - Fluticasone nasal spray for asthma - Hydrochlorothiazide 25 mg daily for hypertension - Montelukast for C1 inhibitor deficiency Diagnostic Results: - Labs: Cholesterol 234 mg/dL, LDL cholesterol 157 mg/dL Social History: - Denies regular consumption of fried foods but needs dietary modifications to manage high cholesterol levels. [facility] Medical History (Updated 11/26/24 @ 10:38 by Abdelrahman Dietrich MD) Lip swelling Asthma Hyperlipidemia C1 esterase inhibitor deficiency Anxiety Hx of hypoglycemia Arthritis IBS (irritable bowel syndrome) Glaucoma Hx of cardiac murmur Heartburn Hiatal hernia Hx of cleft palate with cleft lip Surgical History Hx of cholecystectomy Hx of colonoscopy (~10/27/20) History of esophagogastroduodenoscopy (EGD) Hx of bilateral breast reduction surgery H/O rhinoplasty Family History Mother No problems noted. Father No problems noted. Social History Household Members: None Housing: Apartment Do you presently have visiting nurse or other home services: No Alcohol intake: never Comment: refuse camera in room Patient Tobacco Use Status: Never used Tobacco e-Cigarette/Vaping Use: Never Used Second Hand Smoke Exposure: No service: No Current occupational status: retired Cognitive needs: No Hearing needs: No Vision needs: Yes (reading glasses) Questionnaire Thrive Questionnaire Date Thrive assessed: 08/19/24 JOSEPH-7 AMB Questionnaire JOSEPH-7 Date JOSEPH - 7 assessed: 08/19/24 Source: Developed by Drs. Scott Cherry, Breanna Castillo, Jase Kimbrough and colleagues, with an educational iliana from [employer] computer. Review of Systems Const Details: - Respiratory: Denies any breathing difficulties. - Cardiovascular: No chest pain or palpitations discussed. - Skin: Minimal swelling noted on lip, no rash reported. - Gastrointestinal: Acid reflux symptoms managed with famotidine. All systems reviewed & are unremarkable except as reviewed in HPI and above Physical exam (Primary Care) Vital Signs: Last Vital Signs Temp 97.9 F 11/26/24 10:23 Pulse 66 11/26/24 10:23 Resp 18 11/26/24 10:23 BP 130/80 11/26/24 10:23 Pulse Ox 98 11/26/24 10:23 Oxygen Delivery Method Room Air 11/26/24 10:23 Tobacco/Smoking Status: Tobacco use Status Tobacco use date assessed 06/04/24 11/26/24 10:14 Patient Tobacco Use Status Never used Tobacco 11/26/24 10:14 e-Cigarette/Vaping Use Never Used 11/26/24 10:14 Thrive Assessment: Date of Thrive Assessment Date Thrive assessed 08/19/24 11/26/24 10:14 Const Other: General: Alert and oriented, Well nourished, No acute distress. Eye: Pupils are equal, round and reactive to light, Intact accommodation, Extraocular movements are intact, Normal conjunctiva, Vision unchanged. HENT: Normocephalic, Atraumatic, Tympanic membranes are clear, Normal hearing, Oral mucosa is moist, No pharyngeal erythema, Ear canals patent. Respiratory: Lungs CTA bilaterally, No wheeze, Respirations are non-labored. Cardiovascular: Regular rate, Regular rhythm, S1 auscultated, S2 auscultated, Heart murmur noted, Good pulses equal in all extremities, Normal peripheral perfusion, No edema. Gastrointestinal: Soft, Non-tender, Non-distended, Normal bowel sounds, No organomegaly. Musculoskeletal: Normal range of motion, Normal strength, No tenderness, No swelling, No deformity, Normal gait. Integumentary: Warm, Dry, [place], Intact, Minimal swelling on the right side of the lip. Neurologic: Alert, Oriented, Normal sensory, Normal motor function, No focal defects, Cranial Nerves II-XII are grossly intact, Normal deep tendon reflexes. Psychiatric: Cooperative, Appropriate mood & affect, Normal judgment. Coding Level of Care Code Est Pt Level 4 (84850) Complex EM visit Add On G2211 Diagnoses Lip swelling R22.0 Primary hypertension I10 Hypertension type: primary hypertension Heartburn R12 C1 esterase inhibitor deficiency D84.1 Other hyperlipidemia E78.49 Hyperlipidemia type: other hyperlipidemia Mild intermittent asthma without complication J45.20 Asthma complication type: uncomplicated Asthma persistence: intermittent Asthma severity: mild Assessment & Plan Assessment & Plan (1) Lip swelling: Comment: - Continue monitoring for progression or recurrence. - If swelling worsens, advise emergency measures including contacting emergency services. Code(s): R22.0 - Localized swelling, mass and lump, head Category: Medical (2) Hypertension: Comment: - Blood pressure is well-controlled; continue hydrochlorothiazide. Code(s): I10 - Essential (primary) hypertension Category: Medical Qualifiers: Hypertension type: primary hypertension Qualified Code(s): I10 - Essential (primary) hypertension (3) Heartburn: Comment: - Continue famotidine for acid reflux management. Code(s): R12 - Heartburn Category: Medical (4) C1 esterase inhibitor deficiency: Comment: - Maintain antihistamine usage as prescribed. 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 Advised patient if she has any complications symptoms to stop medication and contact hospital right away/911 Code(s): E78.5 - Hyperlipidemia, unspecified Category: Medical Qualifiers: Hyperlipidemia type: other hyperlipidemia Qualified Code(s): E78.49 - Other hyperlipidemia (6) Asthma: Comment: Currently using albuterol inhaler p.r.n. and fluticasone intranasal spray p.r.n. for symptom control and has had symptoms controlled well with no exacerbations or complaints at this time. Continue same medications Code(s): J45.909 - Unspecified asthma, uncomplicated Category: Medical Qualifiers: Asthma complication type: uncomplicated Asthma persistence: intermittent Asthma severity: mild Qualified Code(s): J45.20 - Mild intermittent asthma, uncomplicated Plan: Health care maintenance: - Start atorvastatin for hyperlipidemia. - Dietary counseling for cardiovascular risk reduction. - Scheduled appointment for follow-up and lab work in four months. Patient was informed and verbally consented to the use of an ambient scribe for clinic note documentation during this visit. Plan I discussed with the patient her current health status, focusing on the swelling of her lip and the possible causes, including mechanical injury or a response due to her C1 inhibitor deficiency. We discussed the importance of monitoring her condition, especially if swelling advances, potentially impacting her airway. I emphasized the critical nature of avoiding known allergens. We also reviewed her medication regimen to ensure effective control of her ongoing conditions including GERD and hypertension. I advised the initiation of atorvastatin to manage her elevated cholesterol levels and provided dietary recommendations to accompany this treatment. We have planned a follow-up in four months, during which we will reassess her condition, check cholesterol levels, and adjust her treatment plan as necessary. Orders: Orders Hemoglobin A1c 4 Months I10 - Essential (primary) hypertension Medications: New rosuvastatin 10 mg PO DAILY 90 tabs 0RF Patient Instructions: - Monitor lip swelling and seek immediate medical attention if breathing becomes difficult. - Avoid known allergens like nuts, dairy, and cheese. - Continue taking prescribed medications as discussed. - Start atorvastatin 10 mg daily; monitor for any side effects such as rash and stop medication if they occur. - Make necessary dietary changes to manage cholesterol. - Attend the follow-up appointment in four months.
[2024-11-26 10:23] VITALS: BP 130/80; PULSE 66; RESP 18; TEMP 36.6; O2SAT 98
--- OUTSIDE RECORDS SUMMARY | 2024-11-26 11:03 | XMS_ITS | Patient Health Record ---
Author Organization [facility] Address [address] [place] [address] Care Team Providers Care Pattern Wheel Maker Name Role Phone Nigel (RETIRED) Levi MURRAY Primary Care Provide r Scott Jain Unavailable [phone] Allergies Allergen (clinical drug ingredient) Drug/Non Drug [...] Problem Status W/U Status Risk Notes Problem [id number] Encounter for screening for malignant neoplasm of colon (Z12.11) Active confirmed Problem [id number] Pre-procedural examination (Z01.818) Active confirmed Problem [id number] Irritable bowel syndrome, unspecified type (K58.9) Active confirmed Problem Diverticulosis of colon (196984841) Diverticulosis of colon (K57.30) Active confirmed Encounters Encounter Location Date Provider Diagnosis [facility] [address] [place] [address] 05/29/2024 Scott Suazo Plan Of Treatment Future Test Test Name Order Date COLONOSCOPY 09/07/2020 Insurance Providers Payer Name Payer Address Payer Phone Subscriber Number Group Number Insured Name Patient Relationship to Insured Coverage Start Date Coverage End Date MEDICARE OF [place] [address] [place] [id number] JOAN ORTIZ Self - patient is the insured MEDICAID OF [employer] [address] [place] [address] [id number] JOAN ORTIZ Self - patient is the insured Medical (General) History Medical History History ICD Code 07/26/2010 EGD-small hiatal hernia, normal duodenal biopsies, and mild gastritis but negative H. pylori Hypertension Denies FL,DM,CVA,Lung disease,renal dise ase Arthritis Colonoscopy in 07/2010-normal biopsies, without any sign of microscopic colitis--there were no polyps-there was some mild sigmoid diverticulosis and small internal hemorrhoids Bronchitis Eczema Irritable bowel syndrome Surgical History Surgery Date(Month/Year) Laparoscopic Cholecystectomy 2010 Cleft palate & nasal surgery Breast reduction
== END 2024-11-26 10:45 | disposition home or self-care (01) ==
LOC: HO.HMCHD 10:11
PROVIDERS: PCP Student in an Organized Health Care Education/Training Program; Visit Provider Student in an Organized Health Care Education/Training Program
DX: R22.0 Localized swelling, mass and lump, head (principal); I10 Essential (primary) hypertension; R12 Heartburn; D84.1 Defects in the complement system; E78.49 Other hyperlipidemia; J45.20 Mild intermittent asthma, uncomplicated

== ENCOUNTER → 2024-11-26 10:11 | Outpatient (BNVA) | payer MEDICARE, MEDICAID, SELFPAY | PROVIDERS: PCP Internal Medicine; Visit Provider Student in an Organized Health Care Education/Training Program | DX: R22.0 Localized swelling, mass and lump, head (principal); I10 Essential (primary) hypertension; R12 Heartburn; D84.1 Defects in the complement system; E78.49 Other hyperlipidemia; J45.20 Mild intermittent asthma, uncomplicated; Z79.899 Other long term (current) drug therapy | CPT/HCPCS: 99212 ==

== ENCOUNTER 2024-12-03 10:15 | Inpatient (IN) | payer MEDICARE, MEDICAID, SELFPAY ==
--- NOTE | ~2024-12-03 | CT_ITS ---
EXAMINATION: CT ABDOMEN PELVIS WITH IV CONTRAST HISTORY: Diffuse abdominal discomfort worse in the epigastrium COMPARISON: Images from the prior study dated 05/19/2024 is not available for direct comparison. The report was reviewed. TECHNIQUE: CT scan of the abdomen and pelvis was performed following administration of 85 mL Omnipaque 350 using standard departmental protocol. Coronal and sagittal reformatted images were generated and reviewed. Oral contrast material was not administered at the request of the referring physician. This CT exam was performed with one or more of the following dose reduction techniques: automated exposure control, adjustment of the mA and/or kV according to patient size, use of iterative reconstruction technique. DLP: 38 mGy-cm FINDINGS: LOWER CHEST: The visualized lung bases are clear. There is no pleural effusion. CARDIOVASCULATURE: The heart is normal in size. There is no pericardial effusion. LIVER: The liver is normal in size and contour. There is a 2.3 cm lobulated mass in segment III which was described previously. The hepatic and portal veins are patent. GALLBLADDER / BILE DUCTS: The gallbladder is surgically absent. There is no intra or extrahepatic biliary ductal dilatation. SPLEEN: The spleen is normal in size. No focal splenic lesion is identified. PANCREAS: The pancreas is unremarkable in appearance. ADRENAL GLANDS: Within normal limits. KIDNEYS/RETROPERITONEUM: No renal calculi are identified. There is no hydronephrosis. No renal masses are identified. LYMPH NODES: No abdominal or pelvic lymphadenopathy. VASCULATURE: The abdominal aorta is normal in caliber. MESENTERY/PERITONEUM: There is moderate free fluid around the liver, in the periumbilical region, and in the pelvis. No masses. There is no free intraperitoneal gas. STOMACH: The stomach is collapsed, limiting evaluation. SMALL BOWEL: There is a markedly abnormal loop of small bowel in the pelvis demonstrating wall thickening and mucosal hyperemia. There is marked inflammatory stranding of the associated mesentery. There is no evidence of bowel obstruction. COLON: The colon is largely collapsed. APPENDIX: Normal. URINARY BLADDER/PELVIC ORGANS: The urinary bladder is unremarkable. The uterus demonstrates a bicornuate configuration. BONES / SOFT TISSUES: There is degenerative disc disease of the spine. CT/CT abdomen pelvis w IV con IMPRESSION: 1. Abnormal loop of small bowel in the pelvis demonstrating wall thickening, mucosal hyperemia, and marked inflammatory stranding of the associated mesentery. Findings are consistent with enteritis which may be infectious, inflammatory, or ischemic in nature. Note that similar findings were described on the report from the prior study. 2. Moderate amount of ascites in the abdomen and pelvis as described. Electronically signed by: Scott Medina MD 12/03/2024 01:49 PM EDT
[2024-12-03 10:29] VITALS: BP 132/62; BP 138/76; PULSE 72; PULSE 76; RESP 18; TEMP 36.4; O2SAT 97; O2SAT 98; BMI 35.0
--- NOTE | 2024-12-03 11:29 | ED.GENADULT ---
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 She tells me she feels terrible. Reports pain is constant, and describes She denies any sick contacts or eating anything abnormal. Upon history taking patient is actively vomiting. Tells me she has not been able to tolerate p.o.. Denies fevers, chills, chest pain, shortness of breath, headache, vision changes, blood in vomit or stool, changes in urinary habits. Related Data Home Medications ?Medication ?Instructions ?Recorded ?Confirmed cetirizine 10 mg capsule (Zyrtec) 10 mg PO DAILY PRN Allergy Symptoms 10/23/20 11/26/24 albuterol sulfate 90 mcg/actuation 2 puff inhalation Q6H PRN 05/19/24 11/26/24 aerosol inhaler (Ventolin HFA) Shortness Of Breath Or Wheezing cholecalciferol (vitamin D3) 25 25 mcg PO DAILY 05/19/24 11/26/24 mcg (1,000 unit) capsule famotidine 20 mg tablet 20 mg PO BID@0630,1630 05/19/24 11/26/24 diphenhydramine HCl 25 mg capsule 25 mg PO TID PRN Allergy Symptoms 07/21/24 11/26/24 (Benadryl) latanoprost 0.005 % eye drops 1 drp ophthalmic (eye) BEDTIME 07/21/24 11/26/24 pediatric multivitamin no.49 2 tab PO DAILY 07/21/24 11/26/24 (Flintstones Gummies chewable tablet) fluticasone propionate 50 2 spray intranasal DAILY PRN 11/26/24 11/26/24 mcg/actuation nasal spray,suspension prednisone 20 mg tablet 40 mg PO DAILY PRN 11/26/24 11/26/24 Previous Rx's ?Medication ?Instructions ?Recorded walker (Ultra-Light Rollator misc) #1 ea 07/23/24 hydrochlorothiazide 25 mg tablet 25 mg PO DAILY #90 tabs 08/19/24 montelukast 10 mg tablet 10 mg PO DAILY #90 tabs 08/19/24 rosuvastatin 10 mg tablet 10 mg PO DAILY #90 tabs 11/26/24 Allergies Allergy/AdvReac Type Severity Reaction Status Date / Time apple (APPLE) Allergy Severe FACIAL Verified 12/03/24 10:34 SWELLING lisinopril (LISINOPRIL) Allergy Severe FACIAL Verified 12/03/24 10:34 SWELLING metoprolol (METOPROLOL) Allergy Severe FACIAL Verified 12/03/24 10:34 SWELLING, facial swelling with any bp med nut - unspecified (NUTS) Allergy Severe Facial Verified 12/03/24 10:34 Swelling pectin (PECTIN) Allergy Severe Facial Verified 12/03/24 10:34 Swelling triamterene (TRIAMTERENE) Allergy Severe FACIAL Verified 12/03/24 10:34 SWELLING DAIRY PRODUCTS Allergy Severe Facial Uncoded 06/04/24 13:07 Swelling Review of Systems Review of Systems: Yes all other systems are reviewed and are negative [facility] Past Medical History Attestation statement: The following information was validated with the patient. Source: old records reviewed and nursing notes reviewed Medical History Lip swelling Asthma Hyperlipidemia C1 esterase inhibitor deficiency Anxiety Hx of hypoglycemia Arthritis IBS (irritable bowel syndrome) Glaucoma Hx of cardiac murmur Heartburn Hiatal hernia Hx of cleft palate with cleft lip Surgical History Hx of cholecystectomy Hx of colonoscopy (~10/27/20) History of esophagogastroduodenoscopy (EGD) Hx of bilateral breast reduction surgery H/O rhinoplasty Family History Family History Mother No problems noted. Father No problems noted. Social History Social History Household Members: None Housing: Apartment Do you presently have visiting nurse or other home services: No Alcohol intake: never Comment: refuse camera in room Patient Tobacco Use Status: Never used Tobacco Smoked in Last 30 Days: No e-Cigarette/Vaping Use: Never Used Second Hand Smoke Exposure: No Use of substances other than those prescribed or required for medical reasons: No Advance Directives: No Advance Directives Information Provided: Yes Do you have a plan to hurt others: No Plan service: No Current occupational status: retired Cognitive needs: No Hearing needs: No Vision needs: Yes (reading glasses) Physical Exam ED Exam Exam: Appearance: Alert.? Oriented X3.? Patient appears uncomfortable and she is actively vomiting upon my examination Head: Normocephalic, atraumatic, no step-offs or deformities Eyes: Pupils equal, round and reactive to light.? ENT: Pharynx normal.? Neck: Normal inspection.? Neck supple.? CVS: Normal heart rate and rhythm.? Pulses normal.? Respiratory: No respiratory distress.? Breath sounds normal.? Abdomen: Soft and diffusely tender worse in the epigastric region normoactive bowel sounds.? Skin: Skin warm and dry.? Normal skin color.? Normal skin turgor.? Extremities: No lower extremity edema.? No calf ttp. global weakness Neuro: Oriented X 3.? No motor deficit.? No sensory deficit. CN 2-12 intact Vital Signs: Vital Signs - 24 hr 12/03/24 10:29 12/03/24 14:27 Temperature 97.6 F 98.3 F Pulse Rate 76 76 Respiratory Rate 18 16 Blood Pressure 138/76 132/74 Pulse Oximetry 97 96 Oxygen Delivery Method Room Air Room Air BMI result Body Mass Index 35.0 vss Course Reevaluation(s) Reevaluation #1: CBC with no acute findings needing intervention. Chemistry unremarkable. UA still pending Time: 14:00 Reevaluation #2: CT abdomen and pelvis with abnormal loops of small bowel in the pelvis demonstrating wall thickening mucosal hyperemia and marked inflammatory stranding of the associated mesentery findings consistent with enteritis I suspect this to be inflammatory I do not think it is infectious or ischemic. Moderate amount of ascites. Patient not tolerating p.o. plan hospital admission UA still pending Time: 16:05 Reevaluation #3: Called [facility] in attempt to speak to Dr. Dailey, she no longer works there they are trying to communicate me with one of her collegues. Time: 16:32 Additional Reevaluation(s): 1640 I spoke to allergy and immunology [employer] Dr. Massiel [phone] who recommends giving ruconest if I feel like its appropriate to give. She states if there is angioedema of the lips, neck or any visible region definitely give it. But at this point its not wrong to give it if patient symptoms return. Right now patient is not having nausea, vomiting and minimal abd discomfort. She states to give it if sx worsen. Patient should be monitored for 72 hours per allergy and immunology due to HAE swells lasting 72 hours. Also recommends repeat scan if sx worsen. Plan at this time hospital admission Medications Administered Discontinued Medications Generic Name Dose Route Start Last Admin Trade Name Freq PRN Reason Stop Dose Admin Diphenhydramine HCl 25 mg 12/03/24 11:10 12/03/24 11:49 Diphenhydramine Hcl 50 Mg/Ml Vial IVPUSH 12/03/24 11:11 25 mg ONCE ONE Administration Sodium Chloride 1,000 mls @ 999 mls/hr 12/03/24 16:00 12/03/24 17:02 Ns IV 12/03/24 17:00 Infused .Q1H1M ROLDAN Infusion Iohexol 100 ml 12/03/24 13:35 12/03/24 13:35 Iohexol 350 Mg/Ml 100 Ml Infus..Btl IV 12/03/24 13:36 85 ml ONCE ONE Administration Metoclopramide HCl 10 mg 12/03/24 11:10 12/03/24 11:49 Metoclopramide Hcl 10 Mg/2 Ml Vial IVPUSH 12/03/24 11:11 10 mg ONCE ONE Administration Ondansetron HCl 4 mg 12/03/24 15:53 12/03/24 16:00 Ondansetron Hcl 4 Mg/2 Ml Vial IVPUSH 12/03/24 15:54 4 mg ONCE ONE Administration Medical Decision Making Medical Decision Making MDM Narrative: 69-year-old female presents with diffuse abdominal pain worse in the epigastric region nausea and vomiting x2 days. Not tolerating p.o. Physical exam diffuse abdominal discomfort worse in the epigastric region. Patient actively vomiting upon my examination History and physical exam concerning for possible viral illness versus gastroenteritis versus diverticulitis versus obstruction although unlikely. No signs of acute abdomen appendicitis, cholecystitis, pancreatitis. Will rule out electrolyte abnormalities at this time. No signs o Plan labs, urine, imaging Differential Diagnosis Differential Diagnoses: The differential diagnosis associated with the presentation includes (History and physical exam concerning for possible viral illness versus gastroenteritis versus diverticulitis versus obstruction although unlikely. No signs of acute abdomen appendicitis, cholecystitis, pancreatitis. Will rule out electrolyte abnormalities at this time.) Admission/Observation Consideration of admission/observation: Escalation of care including admission/observation considered Lab Data MDM Lab Attestation statement: I reviewed the patient's lab results. 12/03/24 12:51 12/03/24 12:06 Labs: Lab Results 12/03/24 12/03/24 12/03/24 Range/Units 12:06 12:51 15:50 WBC 10.4 (4.8-10.8) X10*3/uL RBC 4.52 (4.20-5.50) X10*6/uL Hgb 13.3 (12.0-16.0) g/dl Hct 38.7 (37.0-47.0) % MCV 85.6 (80.0-98.0) fL MCH 29.4 (27.0-33.0) pg MCHC 34.4 (31.0-35.0) g/dl RDW 13.5 (11.0-16.0) % Plt Count 250 (160-400) X10*3/uL MPV 11.8 (9.4-12.3) fL Immature Gran % (Auto) 0.4 (0.0-0.4) % Neut % (Auto) 88.7 H (45-73) % Lymph % (Auto) 8.2 L (20-40) % [place] % (Auto) 2.6 (2-11) % Eos % (Auto) 0.0 (0-4) % Baso % (Auto) 0.1 (0-2) % Lymph # (Auto) 0.9 L (1.2-4.9) X10*3/uL [place] # (Auto) 0.3 (0.1-1.2) X10*3/uL Eos # (Auto) 0.0 (0.0-0.4) X10*3/uL Baso # (Auto) 0.0 (0.0-0.2) X10*3/uL Abs Immat Gran (auto) 0.04 H (0.00-0.03) X10*3/uL Absolute Neuts (auto) 9.2 H (2.0-8.3) x10*3/uL Absolute Nucleated RBC 0.000 (0.0-0.012) X10*3/uL Nucleated RBC % (auto) 0.0 (0.0-0.2) /100WBC PT 11.7 (10.9-12.4) SEC INR 1.0 (0.9-1.1) Sodium 136 (135-145) mmol/L Potassium 3.8 (3.3-5.1) mmol/L Chloride 102 (96-108) mmol/L Carbon Dioxide 24 (22-29) mmol/L Anion Gap 14 (12-20) BUN 13 (9-16) mg/dL Creatinine 1.07 (0.5-1.4) mg/dL Estim Creat Clear Calc 50.1 Estimated GFR 51 Random Glucose 116 H (60-115) mg/dL Calcium 8.9 (8.4-10.2) mg/dL Magnesium 2.0 (1.6-2.6) mg/dL Total Bilirubin 0.6 (0.0-1.0) mg/dL AST 52 H (5-31) U/L ALT 22 (0-31) U/L Alkaline Phosphatase 103 (39-117) U/L Total Protein 7.1 (6.5-8.0) g/dL Albumin 3.6 (3.5-5.0) g/dL Lipase 27 (8-78) U/L Independent Interpretation I performed an independent interpretation of an: CT Scan Radiology Impression Discussion of test interpretation with radiology: I have reviewed the radiologist's reading. External Record Review External record reviewed: Inpatient record, Office record, Outpatient record, Prior outpatient labs, Prior outpatient radiology, Primary care record and Outside ED record Prescription Management I considered prescription management with: Other Chronic Conditions Patient?s care impacted by: Other (see hpi ) Critical Care Time Critical Care Time Critical Care Time: Yes Total Critical Care Time: 45 Attestation: I attest to this time spent taking care of the patient, obtaining history, physical, reviewing labs, imaging, speaking to my attending and or speaking to specialist. Or preforming a procedure Discharge Plan Discharge Clinical Impression: Enteritis, Nausea & vomiting, C1 esterase inhibitor deficiency, Abdominal pain Patient Disposition: Admitted As Inpatient
[2024-12-03 12:43] LABS: Alanine Aminotransferase 22 U/L (0-31); Albumin Level 3.6 g/dL (3.5-5.0); Alkaline Phosphatase 103 U/L (39-117); Anion Gap 14 (12-20); Aspartate Amino Transferase 52 U/L (5-31); Blood Urea Nitrogen 13 mg/dL (9-16); Calcium 8.9 mg/dL (8.4-10.2); Carbon Dioxide 24 mmol/L (22-29); Chloride 102 mmol/L (96-108); Creatinine Clr Calc Pharmacy 50.1; Estimated Glomerular Filt Rate 51; Lipase 27 U/L (8-78); Magnesium 2.0 mg/dL (1.6-2.6); Potassium 3.8 mmol/L (3.3-5.1); Sodium 136 mmol/L (135-145); Total Protein 7.1 g/dL (6.5-8.0)
[2024-12-03 12:55] LABS: MANUAL DIFF FLAG NO
[2024-12-03 12:56] LABS: Hematocrit 38.7 % (37.0-47.0); Hemoglobin 13.3 g/dl (12.0-16.0); Imm Gran Abs Auto 0.04 X10*3/uL (0.00-0.03); Imm Gran Pct Auto 0.4 % (0.0-0.4); Lymphocytes Absolute Auto 0.9 X10*3/uL (1.2-4.9); Mean Corpuscular HGB Conc 34.4 g/dl (31.0-35.0); Mean Corpuscular Hemoglobin 29.4 pg (27.0-33.0); Mean Corpuscular Volume 85.6 fL (80.0-98.0); NRBC Abs Auto 0.000 X10*3/uL (0.0-0.012); NRBC Pct Auto 0.0 /100WBC (0.0-0.2); Platelet Count 250 X10*3/uL (160-400); Red Blood Count 4.52 X10*6/uL (4.20-5.50); White Blood Count 10.4 X10*3/uL (4.8-10.8)
--- NOTE | 2024-12-03 13:06 | PC.NURSE ---
patient a&ox3, c/o 10/03 abd pain, pt difficult stick, multiple attempts to get IV- 22g obtained- medication given for patients nausea/vomiting. labs were unable to be obtained by tech, US trained nurse was asked to insert IV as well for ct scan with contrast. rr equal/non labored, call estevez within reach, plan of careongoing
--- NOTE | 2024-12-03 13:08 | PC.NURSE ---
20g US IV inserted for CT scan
--- NOTE | 2024-12-03 13:19 | PC.NURSE ---
pt to CT scan
[2024-12-03] MEDS: iohexoL 350 MG/ML 100 ML INFUS..BTL IV (13:35)
[2024-12-03 14:27] VITALS: BP 132/74; PULSE 76; RESP 16; TEMP 36.8; O2SAT 96
[2024-12-03 16:04] LABS: INTERNATIONAL NORM RATIO 1.0 (0.9-1.1); Prothrombin Time 11.7 SEC (10.9-12.4)
--- NOTE | 2024-12-03 16:05 | PC.NURSE ---
patient medicated with ivf, zofran per order
--- NOTE | 2024-12-03 17:11 | P.HPHOSP_ITS ---
History of Present Illness Date of Service: 12/03/24 Chief Complaint: n/v 69F PMH hereditary angioedema, IBS, glaucoma, hiatal hernia, cleft palate, anxiety, presented with nausea and vomiting. Symptoms began day day prior to presentation. Associated with epigastric abdominal pain. Vomited brown emesis. Also noted constipation for 2 days followed by bowel movement on day of presentation. Denies fever or chills. Reports 1 contact with similar symptoms. Started newly on statin 1 day prior to presentation. In ED CT abdomen showed enteritis similar to previous presentation for hereditary angioedema interest enteritis in April 2024. Review of Systems 2 Review of Systems: Yes all other systems are reviewed and are negative [facility] Medical History Lip swelling Asthma Hyperlipidemia C1 esterase inhibitor deficiency Anxiety Hx of hypoglycemia Arthritis IBS (irritable bowel syndrome) Glaucoma Hx of cardiac murmur Heartburn Hiatal hernia Hx of cleft palate with cleft lip Family History Mother No problems noted. Father No problems noted. Surgical History Hx of cholecystectomy Hx of colonoscopy (~10/27/20) History of esophagogastroduodenoscopy (EGD) Hx of bilateral breast reduction surgery H/O rhinoplasty Social History Household Members: None Housing: Apartment Do you presently have visiting nurse or other home services: No Alcohol intake: never Comment: refuse camera in room Patient Tobacco Use Status: Never used Tobacco Smoked in Last 30 Days: No e-Cigarette/Vaping Use: Never Used Second Hand Smoke Exposure: No Use of substances other than those prescribed or required for medical reasons: No Advance Directives: No Advance Directives Information Provided: Yes Do you have a plan to hurt others: No Plan service: No Current occupational status: retired Cognitive needs: No Hearing needs: No Vision needs: Yes (reading glasses) Meds Allergies Allergy/AdvReac Type Severity Reaction Status Date / Time apple (APPLE) Allergy Severe FACIAL Verified 12/03/24 10:34 SWELLING lisinopril (LISINOPRIL) Allergy Severe FACIAL Verified 12/03/24 10:34 SWELLING metoprolol (METOPROLOL) Allergy Severe FACIAL Verified 12/03/24 10:34 SWELLING, facial swelling with any bp med nut - unspecified (NUTS) Allergy Severe Facial Verified 12/03/24 10:34 Swelling pectin (PECTIN) Allergy Severe Facial Verified 12/03/24 10:34 Swelling triamterene (TRIAMTERENE) Allergy Severe FACIAL Verified 12/03/24 10:34 SWELLING DAIRY PRODUCTS Allergy Severe Facial Uncoded 06/04/24 13:07 Swelling Active Medications: Current Medications Acetaminophen (Acetaminophen 325 Mg Tablet) 650 mg PO Q6H PRN PRN Reason: Pain, Mild 1-3,fever,headache Calcium Carbonate (Calcium Carbonate 750 Mg Tab.Chew) 750 mg PO Q4H PRN PRN Reason: Heartburn Enoxaparin Sodium (Enoxaparin Sodium 40 Mg/0.4 Ml Syringe) 40 mg SUBCUT Q24H ROLDAN Lactated Ringer's (Lr) 1,000 mls @ 50 mls/hr IVCONT .Q20H ROLDAN Magnesium Hydroxide (Milk Of Magnesia 30 Ml Oral.Susp) 30 ml PO DAILY PRN PRN Reason: Constipation Melatonin (Melatonin 3 Mg Tablet) 6 mg PO BEDTIME PRN PRN Reason: Insomnia Ondansetron HCl (Ondansetron Hcl 4 Mg/2 Ml Vial) 4 mg IVPUSH Q6H PRN PRN Reason: Nausea Sodium Chloride (0.9 % Sodium Chloride Flush 3 Ml Syringe) 3 ml IVFLUSH QSHIFT [facility] Home Medications ?Medication ?Instructions ?Recorded ?Confirmed ?Last Taken ?Type cetirizine 10 mg capsule (Zyrtec) 10 mg PO DAILY PRN A llergy Symptoms 10/23/20 11/26/24 Unknown History albuterol sulfate 90 mcg/actuation 2 puff inhalation Q 6H PRN 05/19/24 11/26/24 Unknown History aerosol inhaler (Ventolin HFA) Shortness Of Breath Or Wheezing cholecalciferol (vitamin D3) 25 25 mcg PO DAILY 11/26/24 07/21/24 History mcg (1,000 unit) capsule famotidine 20 mg tablet 20 mg PO BID@0630,1630 05/1911/26/24 07/21/24 History diphenhydramine HCl 25 mg capsule 25 mg PO TID PRN All ergy Symptoms 07/21/24 11/26/24 Unknown History (Benadryl) latanoprost 0.005 % eye drops 1 drp ophthalmic (eye) B EDTIME 07/21/24 11/26/24 07/20/24 History pediatric multivitamin no.49 2 tab PO DAILY 07/21/24 1 07/21/24 History (Flintstones Gummies chewable tablet) fluticasone propionate 50 2 spray intranasal DAILY PRN 11/26/24 11/26/24 Unknown History mcg/actuation nasal spray,suspension prednisone 20 mg tablet 40 mg PO DAILY PRN 11/26/24 11/26/24 Unknown History Physical Exam 2 Vital Signs and Narrative: Vital Signs: Last Vital Signs Temp 98.3 F 12/03/24 14:27 Pulse 76 12/03/24 14:27 Resp 16 12/03/24 14:27 BP 132/74 12/03/24 14:27 Pulse Ox 96 12/03/24 14:27 O2 Del Method Room Air 12/03/24 14:27 BMI result Body Mass Index 35.0 General: AO X 3, no acute distress, no lip swelling Resp: CTA bilateral, no accessory muscles used CVS: S1,S2,RRR GI: soft, epigastric tender, non distended Neuro: motor grossly intact, alert Psych: appropriate affect, appropriate insight Results Labs 12/03/24 12:51 12/03/24 12:06 Labs: Laboratory Results - last 24 hr 12/03/24 12/03/24 12/03/24 12:06 12:51 15:50 MCV 85.6 MCH 29.4 MCHC 34.4 RDW 13.5 Plt Count 250 MPV 11.8 Immature Gran % (Auto) 0.4 Neut % (Auto) 88.7 H Lymph % (Auto) 8.2 L [place] % (Auto) 2.6 Eos % (Auto) 0.0 Baso % (Auto) 0.1 Lymph # (Auto) 0.9 L [place] # (Auto) 0.3 Eos # (Auto) 0.0 Baso # (Auto) 0.0 Abs Immat Gran (auto) 0.04 H Absolute Neuts (auto) 9.2 H Absolute Nucleated RBC 0.000 Nucleated RBC % (auto) 0.0 PT 11.7 INR 1.0 Anion Gap 14 Estim Creat Clear Calc 50.1 Estimated GFR 51 Random Glucose 116 H Calcium 8.9 Magnesium 2.0 Total Bilirubin 0.6 AST 52 H ALT 22 Alkaline Phosphatase 103 Total Protein 7.1 Albumin 3.6 Lipase 27 Imaging Radiologist's Impressions: Impressions Abdomen/Pelvis CT 12/03/24 13:23 IMPRESSION: 1. Abnormal loop of small bowel in the pelvis demonstrating wall thickening, mucosal hyperemia, and marked inflammatory stranding of the associated mesentery. Findings are consistent with enteritis which may be infectious, inflammatory, or ischemic in nature. Note that similar findings were described on the report from the prior study. 2. Moderate amount of ascites in the abdomen and pelvis as described. Electronically signed by: Scott Medina MD 12/03/2024 01:49 PM EDT RP Assessment and Plan (1) Nausea & vomiting: Status: Acute Plan 69F PMH hereditary angioedema, IBS, glaucoma, hiatal hernia, cleft palate, anxiety, presented with nausea and vomiting Nausea vomiting and abdominal pain Concern for flare of hereditary angioedema Discussion had with skein washer at [facility] immun[facility] [employer] Dr. Massiel Glass [phone] Plan to hold off on ruconest for now, monitor for 72 hours for sign of worsening angioedema and give if needed differential also includes viral gastroenteritis given history of sick contact supportive care with ivf, iv antiemetics glaucoma eye drops hld doubt statin causing symtpoms, but will hold for now dvt prophylaxis - lovenox full code Patient has hereditary angioedema which is a potentially life-threatening condition and recommendations from specialists were to monitor inpatient for 72 hours therefore expected to require at least 2 midnights inpatient Quality Stroke Does the patient have a stroke diagnosis?: No VTE Prior VTE?: No VTE Risk Level:: Medical - moderate - high VTE Device Contraindication: Treatment Not Indicated VTE Drug Contraindication: N/A - Med Ordered
[2024-12-03] MEDS: Lactated Ringers 1,000 ML 50 ML IVCONT (17:43)
[2024-12-03 17:58] VITALS: BP 136/77; PULSE 78; RESP 16; TEMP 36.6; O2SAT 97
--- NOTE | 2024-12-03 18:00 | HO.NURTONUR ---
patient comes from home, alert &ox3, cognitive delay- pt c/o abd pain and vomiting was 8/10 down to 6/10 pain. she has a 22 in her rt hand, we had a 20 to rt upper arm that was US guided but it infiltrated- pt very difficult stick. IV LR @[address] abd showed a? infectious enteritis/ascites. Pt also has a history of type 1 heriditary angio edema of abdomen- per note allergy/immunology told ed provider the patient needs admission for monitoring for 72 hours. vitals stable, rr equal/non labored, fall precautions intact- walks with cane at baseline but is unsteady- she has been oob with assist to commode.
--- NOTE | 2024-12-03 18:23 | PC.NURSE ---
Addendum entered by Josy Pappas RN 12/03/24 18:39: sisters phone number Dottie Romero- sister and health care proxy. [phone] she lives locally in [place]. Sister is a retired Physician. Original Note: sisters phone number Dottie Romero- sister and health care proxy. [phone] she lives locally in [place].
--- NOTE | 2024-12-03 18:23 | PHA.MEDREC ---
Addendum entered by Vamshi Campo RPh 12/03/24 18:40: MED REC REVIEWED BY [facility] Original Note: Pharmacy Consult ? Medication Reconciliation Pharmacy has completed the medication reconciliation. Patient was able to name all of her medications. Patient no longer takes Benadryl 25 mg. Patient had all her morning medications today.
--- NOTE | 2024-12-03 18:41 | PC.NURSE ---
sisters phone number Dottie Romero- sister and health care proxy. [phone] she lives locally in [place]. Sister is a retired Physician.
[2024-12-03 21:45] VITALS: BP 130/69; PULSE 67; RESP 12; TEMP 36.3; O2SAT 95
[2024-12-03 21:47] VITALS: BMI 34.9
[2024-12-03] MEDS: Latanoprost 0.005 % Ophth Sol 2.5 ML DROPS 1 DROP EYE-BOTH (22:53)
[2024-12-04 04:00] VITALS: BP 127/70; PULSE 58; RESP 16; TEMP 36.3; O2SAT 98
[2024-12-04 07:08] LABS: Hematocrit 40.1 % (37.0-47.0); Hemoglobin 13.6 g/dl (12.0-16.0); Mean Corpuscular HGB Conc 33.9 g/dl (31.0-35.0); Mean Corpuscular Hemoglobin 29.6 pg (27.0-33.0); Mean Corpuscular Volume 87.2 fL (80.0-98.0); NRBC Abs Auto 0.000 X10*3/uL (0.0-0.012); NRBC Pct Auto 0.0 /100WBC (0.0-0.2); Platelet Count 217 X10*3/uL (160-400); Red Blood Count 4.60 X10*6/uL (4.20-5.50); White Blood Count 10.0 X10*3/uL (4.8-10.8)
[2024-12-04 07:27] LABS: Blood Urea Nitrogen 16 mg/dL (9-16); Calcium 8.6 mg/dL (8.4-10.2); Creatinine Clr Calc Pharmacy 52.0; Estimated Glomerular Filt Rate 53; Magnesium 1.8 mg/dL (1.6-2.6)
[2024-12-04 07:39] LABS: Anion Gap 11 (12-20); Carbon Dioxide 27 mmol/L (22-29); Chloride 103 mmol/L (96-108); Potassium 2.8 mmol/L (3.3-5.1); Sodium 138 mmol/L (135-145)
[2024-12-04 07:42] VITALS: BP 134/69; PULSE 59; RESP 18; TEMP 36.3; O2SAT 98
[2024-12-04] MEDS: Potassium Chloride ER 20 MEQ TAB.ER.PRT 40 MEQ PO (08:01)
[2024-12-04 09:30] LABS: Appearance Urine Clear; Glucose Urine UA Negative (Negative); PH 7.5 (5.0-9.0); Specific Gravity - Urine 1.010 (1.005-1.025); UMIC TRIGGER UACC YES
--- NOTE | 2024-12-04 10:30 | P.PNIM_ITS ---
Subjective Subjective Date of Service: 12/04/24 Interval History: vomiting resolved, but still with abd pain Physical Exam 2 Exam: Exam: General: AO X 3, no acute distress, no lip swelling Resp: CTA bilateral, no accessory muscles used CVS: S1,S2,RRR GI: soft, epigastric tender, non distended Neuro: motor grossly intact, alert Psych: appropriate affect, appropriate insight Vital Signs: Vital Signs: Last Vital Signs Temp 97.4 F 12/04/24 07:42 Pulse 59 12/04/24 07:42 Resp 18 12/04/24 07:42 BP 134/69 12/04/24 07:42 Pulse Ox 98 12/04/24 07:42 O2 Del Method Room Air 12/04/24 07:42 BMI result Body Mass Index 34.9 Objective Data Active Medications Acetaminophen (Acetaminophen 325 Mg Tablet) 650 mg PO Q6H PRN PRN Reason: Pain, Mild 1-3,fever,headache Albuterol Sulfate (Albuterol Sulfate 90 Mcg 8 Gm Inhaler) 2 puff INHALE Q6H PRN PRN Reason: Shortness Of Breath Or Wheezing Calcium Carbonate (Calcium Carbonate 750 Mg Tab.Chew) 750 mg PO Q4H PRN PRN Reason: Heartburn Enoxaparin Sodium (Enoxaparin Sodium 40 Mg/0.4 Ml Syringe) 40 mg SUBCUT Q24H [facility] Last Admin: 12/04/24 08:03 Dose: 40 mg Documented By: REJI Famotidine (Famotidine 20 Mg Tablet) 20 mg PO BID@0630,1630 [facility] Last Admin: 12/04/24 05:32 Dose: 20 mg Documented By: HARRIETT Fluticasone Propionate (Fluticasone Propionate Nasal 16 Gm [place]) 2 spray NOSTRIL-B DAILY PRN PRN Reason: Allergy Symptoms Hydrochlorothiazide (Hydrochlorothiazide 25 Mg Tablet) 25 mg PO DAILY [facility]; Protocol Last Admin: 12/04/24 08:01 Dose: 25 mg Documented By: REJI Lactated Ringer's (Lr) 1,000 mls @ 50 mls/hr IVCONT .Q20H [facility] Last Admin: 12/03/24 17:43 Dose: 50 mls/hr Documented By: MAYKEL Latanoprost (Latanoprost 0.005 % Ophth Staci 2.5 Ml Drops) 1 drop EYE-BOTH BEDTIME [facility] Last Admin: 12/03/24 22:53 Dose: 1 drop Documented By: HARRIETT Loratadine (Loratadine 10 Mg Tablet) 10 mg PO DAILY PRN PRN Reason: Allergy Symptoms Magnesium Hydroxide (Milk Of Magnesia 30 Ml Oral.Susp) 30 ml PO DAILY PRN PRN Reason: Constipation Melatonin (Melatonin 3 Mg Tablet) 6 mg PO BEDTIME PRN PRN Reason: Insomnia Montelukast Sodium (Montelukast Sodium 10 Mg Tablet) 10 mg PO DAILY [facility] Last Admin: 12/04/24 08:01 Dose: 10 mg Documented By: REJI Sodium Chloride (0.9 % Sodium Chloride Flush 3 Ml Syringe) 3 ml IVFLUSH QSHIFT [facility] Last Admin: 12/04/24 08:03 Dose: Not Given Documented By: REJI Non-Admin Reason: IV Running Vitamin D (Cholecalciferol (Vitamin D3) 25 Mcg Tablet) 25 mcg PO DAILY [facility] Last Admin: 12/04/24 08:01 Dose: 25 mcg Documented By: REJI Labs 12/04/24 07:01 12/04/24 07:01 Labs: Laboratory Results - last 24 hr 12/03/24 12/03/24 12/03/24 12:06 12:51 15:50 MCV 85.6 MCH 29.4 MCHC 34.4 RDW 13.5 Plt Count 250 MPV 11.8 Immature Gran % (Auto) 0.4 Neut % (Auto) 88.7 H Lymph % (Auto) 8.2 L [place] % (Auto) 2.6 Eos % (Auto) 0.0 Baso % (Auto) 0.1 Lymph # (Auto) 0.9 L [place] # (Auto) 0.3 Eos # (Auto) 0.0 Baso # (Auto) 0.0 Abs Immat Gran (auto) 0.04 H Absolute Neuts (auto) 9.2 H Absolute Nucleated RBC 0.000 Nucleated RBC % (auto) 0.0 PT 11.7 INR 1.0 Anion Gap 14 Estim Creat Clear Calc 50.1 Estimated GFR 51 Random Glucose 116 H Calcium 8.9 Magnesium 2.0 Total Bilirubin 0.6 AST 52 H ALT 22 Alkaline Phosphatase 103 Total Protein 7.1 Albumin 3.6 Lipase 27 Urine Color Urine Appearance Urine pH Ur Specific [place] Urine Protein Urine Glucose (UA) Urine Ketones Urine Blood Urine Nitrite Ur Leukocyte Esterase Urine RBC Urine WBC Ur Squamous Epith Cells Urine Bacteria Hyaline Casts 12/04/24 12/04/24 07:01 08:50 MCV 87.2 MCH 29.6 MCHC 33.9 RDW 13.9 Plt Count 217 MPV 11.8 Immature Gran % (Auto) Neut % (Auto) Lymph % (Auto) [place] % (Auto) Eos % (Auto) Baso % (Auto) Lymph # (Auto) [place] # (Auto) Eos # (Auto) Baso # (Auto) Abs Immat Gran (auto) Absolute Neuts (auto) Absolute Nucleated RBC 0.000 Nucleated RBC % (auto) 0.0 PT INR Anion Gap 11 L Estim Creat Clear Calc 52.0 Estimated GFR 53 Random Glucose 94 Calcium 8.6 Magnesium 1.8 Total Bilirubin AST ALT Alkaline Phosphatase Total Protein Albumin Lipase Urine Color Yellow Urine Appearance Clear Urine pH 7.5 Ur Specific [place] 1.010 Urine Protein Negative Urine Glucose (UA) Negative Urine Ketones Negative Urine Blood Negative Urine Nitrite Negative Ur Leukocyte Esterase Trace H Urine RBC 0-2 Urine WBC 0-5 Ur Squamous Epith Cells 6-10 Urine Bacteria None Seen Hyaline Casts 0-2 Assessment and Plan (1) Enteritis: Status: Acute Plan 69F PMH hereditary angioedema, IBS, glaucoma, hiatal hernia, cleft palate, anxiety, presented with nausea and vomiting Nausea vomiting and abdominal pain Concern for flare of hereditary angioedema vomiting better, but still with abd pain, continue to monitor differential also includes viral gastroenteritis given history of sick contact supportive care with ivf, avoid iv antiemetics as may mask worsening edema acute hypokalemia replace and monitor glaucoma eye drops hld doubt statin causing symtpoms, but will hold for now dvt prophylaxis - lovenox full code reason for continued hospitalization:hypokalemia, abd pain Quality Stroke Does the patient have a stroke diagnosis?: No VTE Prior VTE?: No VTE Risk Level:: Medical - moderate - high VTE Device Contraindication: Treatment Not Indicated VTE Drug Contraindication: N/A - Med Ordered
[2024-12-04] MEDS: Lactated Ringers 1,000 ML 50 ML IVCONT (11:51)
[2024-12-04] MEDS: [UNRECOGNIZED DRUG - OTHER] 336 EACH IV (14:36)
[2024-12-04 15:50] VITALS: BP 134/82; PULSE 62; RESP 15; TEMP 36.1; O2SAT 96
--- NOTE | 2024-12-04 16:04 | MHC.CM.PN ---
IMM delivered. Patient lives alone in an apartment. She is independent w/ care. Has home making services every other through [facility] for cleaning, laundry, shopping. Patient does all cooking. PCP Abdelrahman Dietrich MD Reports she has an HCP naming her sister, Dottie, as HCA. Copy requested. DP: Goal is return home. She would like SN/PT services through [facility] if ordered. Sister to transport. CM will continue to follow.
[2024-12-04 20:00] VITALS: BP 141/94; PULSE 99; RESP 16; TEMP 36.4; O2SAT 98
[2024-12-04] MEDS: Latanoprost 0.005 % Ophth Sol 2.5 ML DROPS 1 DROP EYE-BOTH (20:57)
[2024-12-05 03:41] VITALS: BP 126/61; PULSE 55; RESP 18; TEMP 36.6; O2SAT 98
[2024-12-05] MEDS: Lactated Ringers 1,000 ML 50 ML IVCONT (05:42)
[2024-12-05 06:54] LABS: Hematocrit 37.3 % (37.0-47.0); Hemoglobin 12.5 g/dl (12.0-16.0); Mean Corpuscular HGB Conc 33.5 g/dl (31.0-35.0); Mean Corpuscular Hemoglobin 29.3 pg (27.0-33.0); Mean Corpuscular Volume 87.6 fL (80.0-98.0); NRBC Abs Auto 0.000 X10*3/uL (0.0-0.012); NRBC Pct Auto 0.0 /100WBC (0.0-0.2); Platelet Count 205 X10*3/uL (160-400); Red Blood Count 4.26 X10*6/uL (4.20-5.50); White Blood Count 6.7 X10*3/uL (4.8-10.8)
[2024-12-05 07:14] LABS: Anion Gap 12 (12-20); Blood Urea Nitrogen 12 mg/dL (9-16); Calcium 8.8 mg/dL (8.4-10.2); Carbon Dioxide 28 mmol/L (22-29); Chloride 102 mmol/L (96-108); Creatinine Clr Calc Pharmacy 54.1; Estimated Glomerular Filt Rate 56; Magnesium 1.6 mg/dL (1.6-2.6); Potassium 3.1 mmol/L (3.3-5.1); Sodium 139 mmol/L (135-145)
[2024-12-05 08:01] VITALS: BP 128/76; PULSE 60; RESP 12; TEMP 36.2; O2SAT 99
--- NOTE | 2024-12-05 09:05 | PM.DS ---
DS: Providers Provider Date of Service: 12/05/24 Date of admission: 12/03/24 16:54 Date of discharge: 12/05/24 Primary care physician: Abdelrahman Dietrich MD DS: Diagnosis Discharge Diagnosis (1) Enteritis: Status: Acute DS: Summary Hospital Course Hospital Course: from initial hpi: 69F PMH hereditary angioedema, IBS, glaucoma, hiatal hernia, cleft palate, anxiety, presented with nausea and vomiting. Symptoms began day day prior to presentation. Associated with epigastric abdominal pain. Vomited brown emesis. Also noted constipation for 2 days followed by bowel movement on day of presentation. Denies fever or chills. Reports 1 contact with similar symptoms. Started newly on statin 1 day prior to presentation. In ED CT abdomen showed enteritis similar to previous presentation for hereditary angioedema interest enteritis in April 2024. hospital course: Patient was admitted for acute enteritis likely due to flare of hereditary angioedema. She was given IV fluids and C1 esterase inhibitor recombinant. Symptoms improved and patient was tolerating solid diet. She will be discharged home. For acute hypokalemia received replacement. For glaucoma was continued on eyedrops. For hyperlipidemia can continue Crestor at home. Time Attestation Discharge Coordination Time (in mins): 35 Quality: Safe Use of Opioids Does Pt have an Active Cancer Diagnosis on the Problem List?: No Quality: Stroke Does the patient have a stroke diagnosis?: No Physical Exam Exam: Exam: General: AO X 3, no acute distress Resp: CTA bilateral, no accessory muscles used CVS: S1,S2,RRR GI: soft, non tender, non distended Neuro: motor grossly intact, alert Psych: appropriate affect, appropriate insight Vital Signs: Vital Signs: Last Vital Signs Temp 97.1 F 12/05/24 08:01 Pulse 60 12/05/24 08:01 Resp 12 12/05/24 08:01 BP 128/76 12/05/24 08:01 Pulse Ox 99 12/05/24 08:01 O2 Del Method Room Air 12/05/24 08:01 BMI result Body Mass Index 34.9 DS: Data Data Completed and Pending Completed studies during hospitalization [Text1]: Procedures Transfusion of Nonautologous Frozen Plasma into Peripheral Vein, Percutaneous Approach (05/19/24) Labs on day of discharge: Laboratory Results - last 24 hr 12/04/24 12/05/24 08:50 06:27 WBC 6.7 RBC 4.26 Hgb 12.5 Hct 37.3 MCV 87.6 MCH 29.3 MCHC 33.5 RDW 13.5 Plt Count 205 MPV 11.6 Absolute Nucleated RBC 0.000 Nucleated RBC % (auto) 0.0 Sodium 139 Potassium 3.1 L Chloride 102 Carbon Dioxide 28 Anion Gap 12 BUN 12 Creatinine 0.99 Estim Creat Clear Calc 54.1 Estimated GFR 56 Random Glucose 81 Calcium 8.8 Magnesium 1.6 Urine Color Yellow Urine Appearance Clear Urine pH 7.5 Ur Specific [place] 1.010 Urine Protein Negative Urine Glucose (UA) Negative Urine Ketones Negative Urine Blood Negative Urine Nitrite Negative Ur Leukocyte Esterase Trace H Urine RBC 0-2 Urine WBC 0-5 Ur Squamous Epith Cells 6-10 Urine Bacteria None Seen Hyaline Casts 0-2 Discharge Plan Discharge Anticipated Discharge Date/Time: 12/05/24 09:03 Patient Disposition: Home Health Service Discharge Diagnosis: hae enteritis Referrals: Teresa CALVIN [Outside] - 3-5 Days Referral Note: Teresa CALVIN will call you to schedule home nursing appointments Abdelrahman Dietrich MD [Primary Care Provider, Internal Medicine] - 1 Week Discharge Medications: Continued Zyrtec 10 mg Capsule 10 mg PO DAILY PRN (Reason: Allergy Symptoms) albuterol sulfate [Ventolin HFA] 90 mcg/actuation HFA aerosol inhaler 2 puff INHALATION Q6H PRN (Reason: Shortness Of Breath Or Wheezing) cholecalciferol (vitamin D3) 25 mcg (1,000 unit) Capsule 25 mcg PO DAILY famotidine 20 mg tablet 20 mg PO BID@0630,1630 fluticasone propionate 50 mcg/actuation spray,suspension 2 spray INTRANASAL DAILY PRN (Reason: Allergy Symptoms) Rx Instructions: administer into each nostril latanoprost 0.005 % drops 1 drp ophthalmic (eye) BEDTIME Rx Instructions: both eyes Flintstones Gummies Tablet,Chewable 2 tab PO DAILY (DME) Ultra-Light Rollator Misc See Rx Instructions .Route Qty: 1 0RF Rx Instructions: As directed rosuvastatin 10 mg tablet 10 mg PO DAILY Qty: 90 0RF hydrochlorothiazide 25 mg tablet 25 mg PO DAILY Qty: 90 3RF montelukast 10 mg tablet 10 mg PO DAILY Qty: 90 3RF Discharge Orders: Discharge Order (Routine); Ordered 12/05/24 Ordered By: Jenaro Vang Diet: Advance to usual diet Activity on Discharge: As tolerated Stand Alone Forms: Patient Portal Discharge page Print Language: Belarusian Care Plan Goals: recovery Health Concerns: enteritis Plan of Treatment: symptomatic management Assessment: see above Patient Instructions: Enteritis (DC)
--- NOTE | 2024-12-05 09:19 | MHC.CM.PN ---
Patient medically cleared for dc home w/ new [facility] for SN. Private transport.
--- NOTE | 2024-12-05 09:51 | P.F2F_ITS ---
Service Date Service Date: 12/05/24 Encounter Date of encounter: 12/05/24 Reasons for Services Signs and symptoms assessed: weakness s/p hosptial stay Reason for long term: medication management and medication treatment Homebound: Leaving the home is medically contraindicated at this time without the asist of a device and/or another person due th the listed conditions above and below. Reason homebound: weakness related to hospital stay Certification: Based on the above findings, I certify that this patient is confined to the home and needs intermittent long term care, physical therapy and/or speech therapy, or continues to need occupational therapy. The patient is under my care, and I have initiated the establishment of the plan of care. The patient will be followed by a physician who will periodically review the plan of care. Time Spent With Patient Time: Total time managing care of this patient today ____ minutes.
== END 2024-12-05 14:08 | disposition home health service (06) | DRG 392 ==
LOC: HO.ED 16:06 → HO.EDOVER 17:09 → HO.S3 19:44
PROVIDERS: Physician Assistant; Admitting Provider Internal Medicine; Emergency Provider Emergency Medicine Emergency Medical Services; PCP Student in an Organized Health Care Education/Training Program; Visit Provider Internal Medicine
DX: K52.9 Noninfective gastroenteritis and colitis, unspecified (principal); D84.1 Defects in the complement system; H40.9 Unspecified glaucoma; E78.5 Hyperlipidemia, unspecified; E87.6 Hypokalemia; Z79.899 Other long term (current) drug therapy
CPT/HCPCS: 36415; 74177; 80048; 80053; 81001; 83690; 83735; 85025; 85027; 85610; 99285; J1200; J1650; J2405; J2765; J7120; Q9967

== ENCOUNTER → 2024-12-03 11:33 | Outpatient (BNV) | payer MEDICARE, MEDICAID, SELFPAY | PROVIDERS: Emergency Provider Emergency Medicine Emergency Medical Services; PCP Student in an Organized Health Care Education/Training Program; Visit Provider Radiology Diagnostic Radiology | DX: R18.8 Other ascites (principal); K63.89 Other specified diseases of intestine | CPT/HCPCS: 74177 ==

== ENCOUNTER → 2024-12-03 16:54 | Outpatient (BNV) | payer MEDICARE, MEDICAID, SELFPAY | PROVIDERS: Admitting Provider Internal Medicine; Emergency Provider Emergency Medicine Emergency Medical Services; PCP Student in an Organized Health Care Education/Training Program; Visit Provider Internal Medicine | DX: K52.9 Noninfective gastroenteritis and colitis, unspecified (principal) | CPT/HCPCS: 99239; G0180 ==

== ENCOUNTER 2025-02-14 03:03 | Observation (INO) | payer MEDICARE, MEDICAID, SELFPAY ==
[2025-02-14 03:15] VITALS: BP 160/89; BP 162/94; PULSE 64; PULSE 65; RESP 19; TEMP 36.8; O2SAT 98; BMI 37.4
--- NOTE | 2025-02-14 03:44 | ED_ITS ---
HPI - Allergic Reaction General Chief complaint: Allergic Reaction Stated complaint: leg swelling Time Seen by Provider: 02/14/25 03:30 Source: patient and EMS Mode of arrival: EMS Limitations: no limitations History of Present Illness ED Provider: Himanshu HAYDEN HPI narrative: The patient is a 70-year-old female with a history of hereditary angioedema with C1 inhibitor deficiency who presents to the ED for evaluation of lip swelling. The patient reports swelling began shortly after biting her lip while eating a chicken sandwich earlier today. She has a known history of angioedema and feels this episode is consistent with prior flares. The patient has never previously required intubation for her angioedema. Patient initially attributed the swelling to the biting incident, however swelling increased throughout the day. Patient reports she took 50 mg of Benadryl at approximately 20:30 yesterday, followed by an additional 50 mg of Benadryl and 40 mg of prednisone at 22:30. She woke overnight tonight and noted swelling had significantly worsened, prompting EMS activation for ED evaluation. She denies shortness of breath, tongue swelling, pain, or nausea. She reports a prior hospital visit where she received IV steroids with good effect. Per chart review she was last seen in June of this year for similar symptoms. At that time patient received Solu- Medrol, Benadryl, Pepcid, Decadron, and ultimately C1 esterase inhibitor. Related Data Home Medications ?Medication ?Instructions ?Recorded ?Confirmed cetirizine 10 mg capsule (Zyrtec) 10 mg PO DAILY PRN A llergy Symptoms 10/23/20 12/03/24 albuterol sulfate 90 mcg/actuation 2 puff inhalation Q 6H PRN 05/19/24 12/03/24 aerosol inhaler (Ventolin HFA) Shortness Of Breath Or Wheezing cholecalciferol (vitamin D3) 25 25 mcg PO DAILY 12/03/24 mcg (1,000 unit) capsule famotidine 20 mg tablet 20 mg PO BID@0630,1630 05/1912/03/24 latanoprost 0.005 % eye drops 1 drp ophthalmic (eye) B EDTIME 07/21/24 12/03/24 pediatric multivitamin no.49 2 tab PO DAILY 07/21/24 1 (Flintstones Gummies chewable tablet) fluticasone propionate 50 2 spray intranasal DAILY PRN 11/26/24 12/03/24 mcg/actuation nasal Allergy Symptoms spray,suspension Previous Rx's ?Medication ?Instructions ?Recorded shameka (Ultra-Light Rollator [facility] [place]) #1 ea 07/23/24 hydrochlorothiazide 25 mg tablet 25 mg PO DAILY #90 ta bs 08/19/24 montelukast 10 mg tablet 10 mg PO DAILY #90 tabs 07/26 08/18 rosuvastatin 10 mg tablet 10 mg PO DAILY #90 tabs 05/18 Allergies Allergy/AdvReac Type Severity Reaction Status Date / Time apple (APPLE) Allergy Severe FACIAL Verified 02/14/25 03:17 SWELLING lisinopril (LISINOPRIL) Allergy Severe FACIAL Verified 02/14/25 03:17 SWELLING metoprolol (METOPROLOL) Allergy Severe FACIAL Verified 02/14/25 03:17 SWELLING, facial swelling with any bp med nut - unspecified (NUTS) Allergy Severe Facial Verified 02/14/25 03:17 Swelling pectin (PECTIN) Allergy Severe Facial Verified 02/14/25 03:17 Swelling triamterene (TRIAMTERENE) Allergy Severe FACIAL Verified 02/14/25 03:17 SWELLING DAIRY PRODUCTS Allergy Severe Facial Uncoded 02/14/25 03:17 Swelling Review of Systems 2 Review of Systems: Yes all other systems are reviewed and are negative [facility] Past Medical History Medical History Lip swelling Asthma Hyperlipidemia C1 esterase inhibitor deficiency Anxiety Hx of hypoglycemia Arthritis IBS (irritable bowel syndrome) Glaucoma Hx of cardiac murmur Heartburn Hiatal hernia Hx of cleft palate with cleft lip Surgical History Hx of cholecystectomy Hx of colonoscopy (~10/27/20) History of esophagogastroduodenoscopy (EGD) Hx of bilateral breast reduction surgery H/O rhinoplasty Family History Family History Mother No problems noted. Father No problems noted. Social History Social History Household Members: None Housing: Apartment Do you presently have visiting nurse or other home services: No Alcohol intake: never Comment: refuse camera in room Patient Tobacco Use Status: Never used Tobacco Smoked in Last 30 Days: No e-Cigarette/Vaping Use: Never Used Second Hand Smoke Exposure: No Use of substances other than those prescribed or required for medical reasons: No Advance Directives: No Advance Directives Information Provided: No service: No Current occupational status: retired Cognitive needs: No Hearing needs: No Vision needs: Yes (reading glasses) Physical Exam ED Vital Signs: Vital Signs - 24 hr 02/14/25 03:15 Temperature 98.2 F Pulse Rate 64 Respiratory Rate 19 Blood Pressure 162/94 H Pulse Oximetry 98 Oxygen Delivery Method Room Air BMI result Body Mass Index 37.4 CONSTITUTIONAL: The patient appears non-toxic, well nourished and in no acute distress. Vital signs as documented. HEAD: Atraumatic, normocephalic. EYES: EOMs grossly intact, pupils equal, conjunctiva clear, no exudate. ENT: Nares patent, no discharge. Airway patent, no audible stridor, visible mucosa is pink and moist without noted lesions. There is moderate edema noted to the bottom lip and buccal mucosal fold. There is no tongue swelling, posterior pharynx demonstrates midline nonedematous uvula, no pooling secretions or evidence of edema. Submental space is soft. No trismus. No lesions. NECK: Trachea is midline, no obvious masses or gross abnormalities. Full nonpainful range of motion. CHEST: Symmetric movement, normal appearance. LUNGS: LS present and CTAB, no w/r/r. No stridor. Non-labored work of breathing. CARDIAC: Regular Rhythm, S1/S2 appreciated, no murmurs, rubs or gallops. ABDOMEN: Abdomen soft and non-tender x4 quadrants, no palpable masses or organomegaly. : Deferred. EXTREMITIES: Normal tone, moves all extremities spontaneously without reported pain. No obvious acute injury or deformity noted. NEURO: Alert and oriented x3, CN II-XII appear grossly intact. Cerebellar Functioning grossly intact. No obvious sensory or motor deficits. Speech clear and appropriate. PSYCH: normal affect, appropriate eye contact, fluid speech, with appropriate response to questioning. No reported suicidality or homicidality. SKIN: Warm, dry, color appropriate, normal turgor. No rashes noted. Medications Administered Discontinued Medications Generic Name Dose Route Start Last Admin Trade Name Freq PRN Reason Stop Dose Admin Diphenhydramine HCl 50 mg 02/14/25 03:50 02/14/25 04:20 Diphenhydramine Hcl 50 Mg/Ml Vial IVPUSH 02/14/25 03:51 50 mg ONCE ONE Administration Famotidine 20 mg 02/14/25 03:50 02/14/25 04:20 Famotidine 20 Mg Tablet PO 02/14/25 03:51 20 mg ONCE ONE Administration Methylprednisolone Sodium Succinate 125 mg 02/14/25 03:50 02/14/25 04:20 Methylprednisolone Sod Succ 125 Mg/2 Ml Vial IVPUSH 02/14/25 03:51 125 mg ONCE ONE Administration Medical Decision Making Medical Decision Making MDM Narrative: 3:51 AM 02/14/2025 (Clinton HAYDEN): The patient is a 70-year-old female with a history of hereditary angioedema with C1 inhibitor deficiency who presents to the ED for evaluation of lip swelling. The patient reports swelling began shortly after biting her lip while eating a chicken sandwich earlier today. She has a known history of angioedema and feels this episode is consistent with prior flares. The patient has never previously required intubation for her angioedema. Patient initially attributed the swelling to the biting incident, however swelling increased throughout the day. Patient reports she took 50 mg of Benadryl at approximately 20:30 yesterday, followed by an additional 50 mg of Benadryl and 40 mg of prednisone at 22:30. She woke overnight tonight and noted swelling had significantly worsened, prompting EMS activation for ED evaluation. She denies shortness of breath, tongue swelling, pain, or nausea. She reports a prior hospital visit where she received IV steroids with good effect. Per chart review she was last seen in June of this year for similar symptoms. At that time patient received Solu-Medrol, Benadryl, Pepcid, Decadron, and ultimately C1 esterase inhibitor. On exam patient has moderate swelling of the lower lip and gums, no swelling of the tongue, posterior pharynx, or neck, the submental space is soft. Lung sounds clear to auscultation throughout. No stridor. Patient is likely suffering from a recurrent episode of angioedema, we will initiate treatment with IV Solu-Medrol and Benadryl, and oral Pepcid. Patient will be monitored for improvement in symptoms. If no improvement Decadron, FFP, and C1 esterase inhibitor will be considered. 5:12 AM 02/14/2025 (Clinton HAYDEN): The patient's swelling has not worsened, however has also not improve. We will add Decadron and plan to admit for administration of C1 esterase inhibitor when pharmacy is available. Admission/Observation Consideration of admission/observation: Escalation of care including admission/observation considered Lab Data MDM Lab Attestation statement: I reviewed the patient's lab results. 02/14/25 04:42 02/14/25 04:42 Labs: Lab Results 02/14/25 Range/Units 04:42 WBC 6.2 (4.8-10.8) X10*3/uL RBC 4.13 L (4.20-5.50) X10*6/uL Hgb 12.4 (12.0-16.0) g/dl Hct 36.5 L (37.0-47.0) % MCV 88.4 (80.0-98.0) fL MCH 30.0 (27.0-33.0) pg MCHC 34.0 (31.0-35.0) g/dl RDW 13.1 (11.0-16.0) % Plt Count 219 (160-400) X10*3/uL MPV 10.9 (9.4-12.3) fL Immature Gran % (Auto) 0.5 H (0.0-0.4) % Neut % (Auto) 87.6 H (45-73) % Lymph % (Auto) 10.8 L (20-40) % [place] % (Auto) 1.1 L (2-11) % Eos % (Auto) 0.0 (0-4) % Baso % (Auto) 0.0 (0-2) % Lymph # (Auto) 0.7 L (1.2-4.9) X10*3/uL [place] # (Auto) 0.1 (0.1-1.2) X10*3/uL Eos # (Auto) 0.0 (0.0-0.4) X10*3/uL Baso # (Auto) 0.0 (0.0-0.2) X10*3/uL Abs Immat Gran (auto) 0.03 (0.00-0.03) X10*3/uL Absolute Neuts (auto) 5.4 (2.0-8.3) x10*3/uL Absolute Nucleated RBC 0.000 (0.0-0.012) X10*3/uL Nucleated RBC % (auto) 0.0 (0.0-0.2) /100WBC Sodium 139 (135-145) mmol/L Potassium 3.6 (3.3-5.1) mmol/L Chloride 101 (96-108) mmol/L Carbon Dioxide 27 (22-29) mmol/L Anion Gap 15 (12-20) BUN 15 (9-16) mg/dL Creatinine 1.09 (0.5-1.4) mg/dL Estim Creat Clear Calc 50.4 Estimated GFR 50 Random Glucose 132 H (60-115) mg/dL Calcium 9.6 D (8.4-10.2) mg/dL Total Bilirubin 0.6 (0.0-1.0) mg/dL AST 44 H (5-31) U/L ALT 52 H (0-31) U/L Alkaline Phosphatase 141 H (39-117) U/L Total Protein 7.2 (6.5-8.0) g/dL Albumin 4.3 (3.5-5.0) g/dL External Record Review External record reviewed: Outpatient record and Prior outpatient labs Discharge Plan Discharge Clinical Impression: Angioedema Patient Disposition: Admitted As Inpatient Print Language: Mohawk
--- OUTSIDE RECORDS SUMMARY | 2025-02-14 03:55 | XMS_ITS | Patient Health Record ---
Author Organization [facility] Address [address] [place] [address] Care Team Providers Care Injection Molder Name Role Phone Nigel (RETIRED) Levi MURRAY Primary Care Provide r Scott Jain Unavailable [phone] Allergies Allergen (clinical drug ingredient) Drug/Non Drug Allergy documented on EMR Reaction Allergy Type Onset Date Status Apple,pectin (uncoded) Unknown Allergy Active dairy (uncoded) Unknown Allergy Acti ve nuts (uncoded) Unknown Allergy Activ e sulfacetamide Sulfacetamide Sodium Unknown Drug Allergy Active Reason For Referral No Information Medications Medication SIG (Take, Route, Frequency, Duration) Notes Start Date End Date Status Hyoscyamine Sulfate 0.125 MG Tablet 1-2 tablets Orally Q 6 hours prn abdominal bloating/cramps; Duration: 30 days 07/07/2013 Active Travatan Z 0.004 % Solution 1 drop into affected eye in the evening Ophthalmic Once a day Active Lastacaft 0.25 % Solution 1 drop into affected eye Ophthalmic prn Active Cetirizine HCl 10 MG Tablet 1 tablet Ora lly Once a day Active Triamcinolone Acetonide Active hydroCHLOROthiazide Active Benefiber Active Latanoprost Active ZyrTEC Active Benadryl Active Cimetidine 800 MG Tablet 1 tablet at bedtime Orally Once a day Not-Taking/PRN Hyoscyamine Sulfate 0.125 MG Tablet 1-2 tablets Orally Q 6 hours prn abdominal cramps, bloating, discomfort; Duration: 30 days 10/15/2013 Active Social History Social History Additional Details Category Social Info Options Details Miscellaneous: Marital status: single Section Notes: Nonsmoker; no sig alcohol Nonsmoker; no sig alcohol Problems Problem Type SNOMED Code ICD Code Onset Dates Problem Status W/U Status Risk Notes Problem Screening for malignant neoplasm of colon (283320060) Encounter for screening for malignant neoplasm of colon (Z12.11) Active confirmed Problem Pre-procedure evaluation check (559343886) Pre-procedural examination (Z01.818) Active confirmed Problem Irritable bowel syndrome (81902108) Irritable bowel syndrome, unspecified type (K58.9) Active confirmed Problem Diverticulosis of colon (422646958) Diverticulosis of colon (K57.30) Active confirmed Encounters Encounter Location Date Provider Diagnosis [facility] [address] [place] [address] 05/29/2024 Scott Suazo Plan Of Treatment Future Test Test Name Order Date COLONOSCOPY 09/07/2020 Insurance Providers Payer Name Payer Address Payer Phone Subscriber Number Group Number Insured Name Patient Relationship to Insured Coverage Start Date Coverage End Date MEDICARE OF [place] [address] [place] [id number] JOAN ORTIZ Self - patient is the insured MEDICAID OF [facility] [address] [place] [address] [id number] JOAN ORTIZ Self - patient is the insured Medical (General) History Medical History History ICD Code 07/26/2010 EGD-small hiatal hernia, normal duodenal biopsies, and mild gastritis but negative H. pylori Hypertension Denies NV,DM,CVA,Lung disease,renal dise ase Arthritis Colonoscopy in 07/2010-normal biopsies, without any sign of microscopic colitis--there were no polyps-there was some mild sigmoid diverticulosis and small internal hemorrhoids Bronchitis Eczema Irritable bowel syndrome Surgical History Surgery Date(Month/Year) Laparoscopic Cholecystectomy 2010 Cleft palate & nasal surgery Breast reduction
[2025-02-14 04:46] LABS: MANUAL DIFF FLAG NO
[2025-02-14 04:47] LABS: Hematocrit 36.5 % (37.0-47.0); Hemoglobin 12.4 g/dl (12.0-16.0); Imm Gran Abs Auto 0.03 X10*3/uL (0.00-0.03); Imm Gran Pct Auto 0.5 % (0.0-0.4); Lymphocytes Absolute Auto 0.7 X10*3/uL (1.2-4.9); Mean Corpuscular HGB Conc 34.0 g/dl (31.0-35.0); Mean Corpuscular Hemoglobin 30.0 pg (27.0-33.0); Mean Corpuscular Volume 88.4 fL (80.0-98.0); NRBC Abs Auto 0.000 X10*3/uL (0.0-0.012); NRBC Pct Auto 0.0 /100WBC (0.0-0.2); Platelet Count 219 X10*3/uL (160-400); Red Blood Count 4.13 X10*6/uL (4.20-5.50); White Blood Count 6.2 X10*3/uL (4.8-10.8)
[2025-02-14 05:00] LABS: Alanine Aminotransferase 52 U/L (0-31); Albumin Level 4.3 g/dL (3.5-5.0); Alkaline Phosphatase 141 U/L (39-117); Anion Gap 15 (12-20); Aspartate Amino Transferase 44 U/L (5-31); Blood Urea Nitrogen 15 mg/dL (9-16); Calcium 9.6 mg/dL (8.4-10.2); Carbon Dioxide 27 mmol/L (22-29); Chloride 101 mmol/L (96-108); Creatinine Clr Calc Pharmacy 50.4; Estimated Glomerular Filt Rate 50; Potassium 3.6 mmol/L (3.3-5.1); Sodium 139 mmol/L (135-145); Total Protein 7.2 g/dL (6.5-8.0)
--- NOTE | 2025-02-14 05:23 | PM.IMHP ---
History of Present Illness Date of Service: 02/14/25 Attending physician on admission: Danny Lamb Chief Complaint: Angioedema PT is a 70 yo female with PMH hereditary angioedema, cholecystectomy, glaucoma, C1 deficiency, hypertension, constipation, IBS, anxiety, arthritis, hiatal hernia, GERD and recent admission for enteritis November 2024 presents to the emergency department today early a.m. after experiencing increased swelling in her lower lip and right lower facial area hours after eating at the [employer] at 12 noon on FridayFebruary 13. Patient stated within 1-2 hours her lower lip was swollen and her right lower face was also swollen. Patient denied any issues with ,shortness of breaths wheezing, swollen tongue. Patient states this time she ate a chicken sandwich on wheat toast with mayonnaise and to make. Patient states she has had this type of sandwich before without any issue. Patient feels because she bit her lip this may be contributing to her symptoms. Patient states later in the evening on Friday she did have a bowl of chicken and rice soup but her symptoms had already started prior to eating the soup. Patient has been admitted in the past for the same situation with exposure to other items including strawberry jam which patient no longer eats, as she has not allergy to pectin. Each time it appears patient has these symptoms when she eats out at a restaurant and patient does state she fears cross contamination was something she is allergic to including nuts. Patient states she has followed up with an chief gauger. In the emergency department patient received methylprednisolone, Pepcid, Benadryl and now Decadron with improvement in the overall swelling. Patient may likely benefit from C1 esterase inhibitor infusion which has to be ordered from [facility] through pharmacy in AM. This sports book writer did speak to [facility] pharmacy and they could not help with ordering the medication or expediting the delivery if needed. Currently patient denies any nausea, vomiting, abdominal pain, chest pain or shortness of breath at rest. Patient being admitted under observation with continued Benadryl PRN and likely will transition to a prednisone taper and receive the medication for the C1 esterase inhibitor once in-house pharmacy can make arrangements. Review of Systems Review of Systems: Patient currently denies any chest pain, shortness of breath at rest or with exertion, nausea, vomiting, abdominal pain and throat tightness. Patient states she has no issues with swallowing. Patient feels the swelling in her face and lip have gone down since treatment has been initiated. Yes all other systems are reviewed and are negative [facility] Medical History Lip swelling Asthma Hyperlipidemia C1 esterase inhibitor deficiency Anxiety Hx of hypoglycemia Arthritis IBS (irritable bowel syndrome) Glaucoma Hx of cardiac murmur Heartburn Hiatal hernia Hx of cleft palate with cleft lip Cognitive capacity: Alert and orientated x3 Functional capacity: independent ambulation Family History Mother No problems noted. Father No problems noted. Surgical History Hx of cholecystectomy Hx of colonoscopy (~10/27/20) History of esophagogastroduodenoscopy (EGD) Hx of bilateral breast reduction surgery H/O rhinoplasty Social History Household Members: None Housing: Apartment Do you presently have visiting nurse or other home services: No Alcohol intake: never Comment: refuse camera in room Patient Tobacco Use Status: Never used Tobacco Smoked in Last 30 Days: No e-Cigarette/Vaping Use: Never Used Second Hand Smoke Exposure: No Use of substances other than those prescribed or required for medical reasons: No Advance Directives: No Advance Directives Information Provided: No service: No Current occupational status: retired Cognitive needs: No Hearing needs: No Vision needs: Yes (reading glasses) Meds Allergies Allergy/AdvReac Type Severity Reaction Status Date / Time apple (APPLE) Allergy Severe FACIAL Verified 02/14/25 03:17 SWELLING lisinopril (LISINOPRIL) Allergy Severe FACIAL Verified 02/14/25 03:17 SWELLING metoprolol (METOPROLOL) Allergy Severe FACIAL Verified 02/14/25 03:17 SWELLING, facial swelling with any bp med nut - unspecified (NUTS) Allergy Severe Facial Verified 02/14/25 03:17 Swelling pectin (PECTIN) Allergy Severe Facial Verified 02/14/25 03:17 Swelling triamterene (TRIAMTERENE) Allergy Severe FACIAL Verified 02/14/25 03:17 SWELLING DAIRY PRODUCTS Allergy Severe Facial Uncoded 02/14/25 03:17 Swelling Home Medications ?Medication ?Instructions ?Recorded ?Confirmed ?Last Taken ?Type cetirizine 10 mg capsule (Zyrtec) 10 mg PO DAILY PRN Allergy Symptoms 10/23/20 12/03/24 Unknown History albuterol sulfate 90 mcg/actuation 2 puff inhalation Q6H PRN 05/19/24 12/03/24 Unknown History aerosol inhaler (Ventolin HFA) Shortness Of Breath Or Wheezing cholecalciferol (vitamin D3) 25 25 mcg PO DAILY 05/19/24 12/03/24 12/03/24 History mcg (1,000 unit) capsule famotidine 20 mg tablet 20 mg PO BID@0630,1630 05/19/24 12/03/24 12/03/24 History latanoprost 0.005 % eye drops 1 drp ophthalmic (eye) BEDTIME 07/21/24 12/03/24 12/02/24 History pediatric multivitamin no.49 2 tab PO DAILY 07/21/24 12/03/24 12/03/24 History (Flintstones Gummies chewable tablet) fluticasone propionate 50 2 spray intranasal DAILY PRN 11/26/24 12/03/24 Unknown History mcg/actuation nasal Allergy Symptoms spray,suspension Physical Exam Vital Signs and Narrative: Vital Signs: Last Vital Signs Temp 98.2 F 02/14/25 03:15 Pulse 64 02/14/25 03:15 Resp 19 02/14/25 03:15 BP 162/94 H 02/14/25 03:15 Pulse Ox 98 02/14/25 03:15 O2 Del Method Room Air 02/14/25 03:15 BMI result Body Mass Index 37.4 Alert and orientated X3, able to give good history. Neuro: CN II-X11 intact, visual acuity intact, speech is only slightly garbled due to swelling in the lower lip EYES: PERRLA, EOM intact, sclerae nonicteric, conjunctiva pink ENT: hearing intact, no issues with swallowing, uvula midline, lips moist, nares patent no epistaxis, noted lower lip swelling very mild with swelling in the right lower jaw area. No lymphadenopathy noted Cardiac: S1 S2 RRR, no murmur, no JVD, no edema in Lower ext Pulmonary: lungs clear to auscultation B, no wheezing or stridor present Abdominal: BS active in all 4 quadrants, no guarding, tenderness, rebounding MSK: strength 5/5 upper and lower extremities : no CVA tenderness no bladder distension Extremities: no edema in lower extremities, PT and DP pulses palpable +2 Psych: mood stable, judgement and insight good Skin: No new lesions or rashes Results Labs 02/14/25 04:42 02/14/25 04:42 Labs: Laboratory Results - last 24 hr 02/14/25 04:42 MCV 88.4 MCH 30.0 MCHC 34.0 RDW 13.1 Plt Count 219 MPV 10.9 Immature Gran % (Auto) 0.5 H Neut % (Auto) 87.6 H Lymph % (Auto) 10.8 L [place] % (Auto) 1.1 L Eos % (Auto) 0.0 Baso % (Auto) 0.0 Lymph # (Auto) 0.7 L [place] # (Auto) 0.1 Eos # (Auto) 0.0 Baso # (Auto) 0.0 Abs Immat Gran (auto) 0.03 Absolute Neuts (auto) 5.4 Absolute Nucleated RBC 0.000 Nucleated RBC % (auto) 0.0 Anion Gap 15 Estim Creat Clear Calc 50.4 Estimated GFR 50 Random Glucose 132 H Calcium 9.6 D Total Bilirubin 0.6 AST 44 H ALT 52 H Alkaline Phosphatase 141 H Total Protein 7.2 Albumin 4.3 ECG Prior ECG tracings: not available for review Assessment and Plan (1) Angioedema: Qualifiers: Encounter type: subsequent encounter Qualified Code(s): T78.3XXD - Angioneurotic edema, subsequent encounter Status: Acute Plan PT is a 70 yo female with PMH hereditary angioedema, cholecystectomy, glaucoma, C1 deficiency, hypertension, constipation, IBS, anxiety, arthritis, hiatal hernia, GERD and recent admission for enteritis November 2024 presents to the emergency department today early a.m. after experiencing increased swelling in her lower lip and right lower facial area hours after eating at the [employer] at 12 noon on FridayFebruary 13. Patient being admitted under observation for angioedema after eating out with possible exposure to something that was cross contaminated in the restaurant. No specific known source identified per patient. Patient did bite her lip and she feels this is contributing. Angioedema (Hereditary) Patient received methylprednisolone, Benadryl, Pepcid and now 1 dose of Decadron in the ED and overall swelling has decreased Currently no issues with dyspahgia, patient is able to protect her airway and no current issues with stridor or hypoxia Benadryl will continue PRN We will start methylprednisolone 60 b.i.d. Patient likely will be discharged on Benadryl and prednisone taper In-house pharmacy will need to be contacted to make arrangements to order the C1 esterase inhibitor infusion (2000 units X1) - [facility] was unable to assist with ordering/obtaining this medication Pt has seen an chief gauger HTN Continue HCTZ once med rec completed Low Na diet GERD Continue Famotidine 20 mgs daily GLAUCOMA Continue Latanaprost as ordered HLD Continue rosuvastatin Cardiac Diet DVT prophylaxis: Lovenox MED REC PENDING FULL CODE STATUS Pt being admitted under observation, likely one night stay to complete infusion therapy for hereditary Angioedema, source not clear this admission. was able to reach in house pharmacist and they will be researching how to obtain infusion and will contact [facility] for the hospitalist team once medication is ordered and there is a plan. Quality Stroke Does the patient have a stroke diagnosis?: No Reason for No Anti-thrombotic by Day Two: N/A - Med Ordered VTE Prior VTE?: No VTE Risk Level:: Medical - moderate - high VTE Device Contraindication: N/A - Device Ordered VTE Drug Contraindication: N/A - Med Ordered
[2025-02-14 05:29] VITALS: BP 171/93; PULSE 87; RESP 18; TEMP 36.4; O2SAT 100
--- NOTE | 2025-02-14 07:24 | P.PNIM_ITS ---
Subjective Subjective Date of Service: 02/14/25 Physical Exam 2 Vital Signs: Vital Signs: Last Vital Signs Temp 97.6 F 02/14/25 05:29 Pulse 87 02/14/25 05:29 Resp 18 02/14/25 05:29 BP 171/93 H 02/14/25 05:29 Pulse Ox 100 02/14/25 05:29 O2 Del Method Room Air 02/14/25 05:29 BMI result Body Mass Index 37.4 Objective Data Active Medications Acetaminophen (Acetaminophen 325 Mg Tablet) 650 mg PO Q6H PRN PRN Reason: Pain, Mild 1-3,fever,headache Albuterol/Ipratropium (Albuterol/Iprat 2.5/0.5mg 3 Ml Ampul.Neb) 3 ml INHALE Q4H PRN PRN Reason: Shortness of Breath/Wheezing Diphenhydramine HCl (Diphenhydramine Hcl 25 Mg Capsule) 25 mg PO Q6H PRN PRN Reason: Angioedema Enoxaparin Sodium (Enoxaparin Sodium 40 Mg/0.4 Ml Syringe) 40 mg SUBCUT Q24H ROLDAN Famotidine (Famotidine 20 Mg Tablet) 20 mg PO DAILY ROLDAN Magnesium Hydroxide (Milk Of Magnesia 30 Ml Oral.Susp) 30 ml PO DAILY PRN PRN Reason: Constipation Melatonin (Melatonin 3 Mg Tablet) 6 mg PO BEDTIME PRN PRN Reason: Insomnia Methylprednisolone Sodium Succinate (Methylprednisolone Sod Succ 125 Mg/2 Ml Vial) 60 mg IVPUSH Q12H ROLDAN Ondansetron HCl (Ondansetron Hcl 4 Mg/2 Ml Vial) 4 mg IVPUSH Q8H PRN PRN Reason: Nausea and Vomiting Polyethylene Glycol (Polyethylene Glycol 3350 17 Gm Powd.Pack) 17 gm PO DAILY PRN PRN Reason: Constipation Senna (Sennosides 8.6 Mg Tablet) 17.2 mg PO BEDTIME ROLDAN Sodium Chloride (0.9 % Sodium Chloride Flush 3 Ml Syringe) 3 ml IVFLUSH QSHIFT [facility] Labs 02/14/25 04:42 02/14/25 04:42 Labs: Laboratory Results - last 24 hr 02/14/25 04:42 MCV 88.4 MCH 30.0 MCHC 34.0 RDW 13.1 Plt Count 219 MPV 10.9 Immature Gran % (Auto) 0.5 H Neut % (Auto) 87.6 H Lymph % (Auto) 10.8 L [place] % (Auto) 1.1 L Eos % (Auto) 0.0 Baso % (Auto) 0.0 Lymph # (Auto) 0.7 L [place] # (Auto) 0.1 Eos # (Auto) 0.0 Baso # (Auto) 0.0 Abs Immat Gran (auto) 0.03 Absolute Neuts (auto) 5.4 Absolute Nucleated RBC 0.000 Nucleated RBC % (auto) 0.0 Anion Gap 15 Estim Creat Clear Calc 50.4 Estimated GFR 50 Random Glucose 132 H Calcium 9.6 D Total Bilirubin 0.6 AST 44 H ALT 52 H Alkaline Phosphatase 141 H Total Protein 7.2 Albumin 4.3 Quality Stroke Does the patient have a stroke diagnosis?: No Reason for No Anti-thrombotic by Day Two: N/A - Med Ordered VTE Prior VTE?: No VTE Risk Level:: Medical - moderate - high VTE Device Contraindication: N/A - Device Ordered VTE Drug Contraindication: N/A - Med Ordered
--- NOTE | 2025-02-14 07:54 | PC.NURSE ---
6 boxes ruconest given to pharmacy, brought in by pt's sister Dottie.
[2025-02-14 08:29] VITALS: BP 170/90; PULSE 84; RESP 20; O2SAT 97
--- NOTE | 2025-02-14 09:07 | PHA.MEDREC ---
Addendum entered by Hira Fine RPh 02/14/25 09:32: Reviewed by [facility] Original Note: Pharmacy Consult ? Medication Reconciliation Pharmacy has completed the medication reconciliation. Spoke with pt and pt sister Dottie at bedside and they were able to confirm pt medications. Pt sister confirmed pt is taking Ruconest 2100un IV taking 4200 un as needed for HAE attacks; pt sister brought in for pt to use med inpatient.
[2025-02-14] MEDS: 0.9 % Sodium Chloride Flush 3 ML SYRINGE IVFLUSH (09:28)
--- NOTE | 2025-02-14 10:28 | PC.NURSE ---
Assumed care of patient at this time. Pt awake and alert. Remains with lip swelling. Speech muffled. Answer questions appropriately. Denies diff breathing or swallowing. Pt medicated at this time with home IV Push ed sent down from pharmacy. SPO2 remains stable on room air. Sister at bedside.
--- NOTE | 2025-02-14 11:22 | PC.NURSE ---
Pt up to commode with steady gait. States mild improvement of swelling since receiving medication. No distress noted.
--- NOTE | 2025-02-14 11:59 | PM.DS ---
DS: Providers Provider Date of admission: 02/14/25 05:20 Date of discharge: 02/14/25 Primary care physician: Unknown Physician DS: Diagnosis Discharge Diagnosis (1) Angioedema: Status: Acute DS: Summary Hospital Course Hospital Course: Attending physician on admission: Danny Lamb Chief Complaint: Angioedema PT is a 70 yo female with PMH hereditary angioedema, cholecystectomy, glaucoma, C1 deficiency, hypertension, constipation, IBS, anxiety, arthritis, hiatal hernia, GERD and recent admission for enteritis November 2024 presents to the emergency department today early a.m. after experiencing increased swelling in her lower lip and right lower facial area hours after eating at the [employer] at 12 noon on FridayFebruary 13. Patient stated within 1-2 hours her lower lip was swollen and her right lower face was also swollen. Patient denied any issues with ,shortness of breaths wheezing, swollen tongue. Patient states this time she ate a chicken sandwich on wheat toast with mayonnaise and to make. Patient states she has had this type of sandwich before without any issue. Patient feels because she bit her lip this may be contributing to her symptoms. Patient states later in the evening on Friday she did have a bowl of chicken and rice soup but her symptoms had already started prior to eating the soup. Patient has been admitted in the past for the same situation with exposure to other items including strawberry jam which patient no longer eats, as she has not allergy to pectin. Each time it appears patient has these symptoms when she eats out at a restaurant and patient does state she fears cross contamination was something she is allergic to including nuts. Patient states she has followed up with an cigarette machine operator. In the emergency department patient received methylprednisolone, Pepcid, Benadryl and now Decadron with improvement in the overall swelling. Patient may likely benefit from C1 esterase inhibitor infusion which has to be ordered from [facility] through pharmacy in AM. This hand sign writer did speak to [facility] and they could not help with ordering the medication or expediting the delivery if needed. Currently patient denies any nausea, vomiting, abdominal pain, chest pain or shortness of breath at rest. Patient being admitted under observation with continued Benadryl PRN and likely will transition to a prednisone taper and receive the medication for the C1 esterase inhibitor once in-house pharmacy can make arrangements. Hospital course : The patient is a 70?year?old female with a history of hereditary angioedema (C1 esterase inhibitor deficiency), hypertension, GERD, glaucoma, hyperlipidemia, IBS/constipation, anxiety, arthritis, hiatal hernia, and prior cholecystectomy, with a recent admission for enteritis (November 2024). She presented to the emergency department in the jukebox coin collector hours with acute swelling of the lower lip and right lower facial area. The patient reported that she bit her lip, which she believes was the primary trigger for the swelling; no clear food?related trigger was identified, and symptoms were not felt to be definitively related to food intake. She was admitted under observation status for management of hereditary angioedema. In the ED, she received methylprednisolone, diphenhydramine, famotidine, and dexamethasone, with subsequent improvement in swelling. During hospitalization, she remained clinically stable without dysphagia, stridor, hypoxia, or airway compromise, and was able to protect her airway. Diphenhydramine was continued as needed, and she was started on IV methylprednisolone 60 mg twice daily, but in daytime C1E inhibitor doesnt warrant Steroid use and her sister (retired physician stated she gets more agitated and facial swelling with steroids) , The patient was already scheduled to receive her outpatient C1 esterase inhibitor infusion on Friday; however, she is unable to self?administer the medication as she lives alone. She has outpatient arrangements for VNA administration of C1 esterase inhibitor infusions, though she has been resistant to additional home services and is generally slow to accept changes in her medical care. Patient we will now receive reconstituted Rocunest anytime she comes to our hospital as it is not available in formulary. Patient should ideally be discharged home with VNA, however patient would not like any acute changes in medications fearing allergic reaction to any changes in meds-hence we would like to keep the medications and follow up closely with PCP, cigarette machine operator. The patient also expressed concerns regarding poor quality of life related to dietary restrictions, noting that fear of angioedema limits her ability to eat preferred foods, including apples. Overall, she demonstrated clinical improvement and was expected to have a short observation stay, with discharge planned after completion or coordination of C1 esterase inhibitor therapy and continuation of outpatient allergy/immunology follow up. Her chronic conditions were managed during admission, including continuation of HCTZ for hypertension pending medication reconciliation with a low?sodium diet, famotidine for GERD, latanaprost for glaucoma, and rosuvastatin with a cardiac diet for hypotension. Patient tolerated diet and is being discharged home. DVT prophylaxis was provided with enoxaparin. Explained to the patient that the lip swelling we will take time and need to follow-up with outpatient management, she is also looking forward to [employer] libertarian in her living facility tomorrow. Time spent discussing smoking cessation with patient: more than 10 minutes Status at Discharge Functional status at discharge: independent ambulation Overall status at discharge: patient is progressing back to baseline Time Attestation Discharge Coordination Time (in mins): 75 min- including speaking to her sister Dtotie who is the healthcare proxy in the main historian at bedside in ED for greater than 30 minutes Quality: Safe Use of Opioids Does Pt have an Active Cancer Diagnosis on the Problem List?: No Quality: Stroke Does the patient have a stroke diagnosis?: No Physical Exam Exam: Exam: General: AO X 3, distressed about her strict dietary restrictions ENT: Lip swelling +, per sister -improved since admission Resp: CTA bilateral, no accessory muscles used CVS: S1,S2,RRR GI: soft, non tender, non distended Neuro: motor grossly intact, alert Psych: poor insight Vital Signs: Vital Signs: Last Vital Signs Temp 97.6 F 02/14/25 05:29 Pulse 84 02/14/25 08:29 Resp 20 02/14/25 08:29 BP 170/90 H 02/14/25 08:29 Pulse Ox 97 02/14/25 08:29 O2 Del Method Room Air 02/14/25 08:29 BMI result Body Mass Index 37.4 DS: Data Data Completed and Pending Completed studies during hospitalization [Text1]: Procedures Transfusion of Nonautologous Frozen Plasma into Peripheral Vein, Percutaneous Approach (05/19/24) Labs on day of discharge: Laboratory Results - last 24 hr 02/14/25 04:42 WBC 6.2 RBC 4.13 L Hgb 12.4 Hct 36.5 L MCV 88.4 MCH 30.0 MCHC 34.0 RDW 13.1 Plt Count 219 MPV 10.9 Immature Gran % (Auto) 0.5 H Neut % (Auto) 87.6 H Lymph % (Auto) 10.8 L Morton % (Auto) 1.1 L Eos % (Auto) 0.0 Baso % (Auto) 0.0 Lymph # (Auto) 0.7 L Morton # (Auto) 0.1 Eos # (Auto) 0.0 Baso # (Auto) 0.0 Abs Immat Gran (auto) 0.03 Absolute Neuts (auto) 5.4 Absolute Nucleated RBC 0.000 Nucleated RBC % (auto) 0.0 Sodium 139 Potassium 3.6 Chloride 101 Carbon Dioxide 27 Anion Gap 15 BUN 15 Creatinine 1.09 Estim Creat Clear Calc 50.4 Estimated GFR 50 Random Glucose 132 H Calcium 9.6 D Total Bilirubin 0.6 AST 44 H ALT 52 H Alkaline Phosphatase 141 H Total Protein 7.2 Albumin 4.3 Discharge Plan Discharge Patient Disposition: Home, Self-Care Referrals: Abdelrahman Dietrich MD [Physician, Internal Medicine] - 1 Week Physician,Tabitha J [Primary Care Provider, Medical] - 1 Week Piedad Dailey MD [Physician, Allergy & Immunology] - 1 Week Discharge Medications: New diphenhydramine HCl 25 mg Capsule 25 mg PO Q6H PRN (Reason: Angioedema) 30 Days Qty: 60 3RF ipratropium-albuterol 0.5 mg-3 mg(2.5 mg base)/3 mL Solution For Nebulization 3 ml inhalation Q4H PRN (Reason: Shortness Of Breath/Wheezing) 30 Days Qty: 180 3RF Continued Zyrtec 10 mg Capsule 10 mg PO DAILY PRN (Reason: Allergy Symptoms) cholecalciferol (vitamin D3) 25 mcg (1,000 unit) Capsule 25 mcg PO DAILY famotidine 20 mg tablet 20 mg PO BID@0630,1630 latanoprost 0.005 % drops 1 drp ophthalmic (eye) BEDTIME Rx Instructions: both eyes Flintstones Gummies Tablet,Chewable 2 tab PO DAILY (DME) Ultra-Light Rollator Misc See Rx Instructions .Route Qty: 1 0RF Rx Instructions: As directed Ruconest 2,100 unit Recon Soln 4,200 unit IV NEEDED MDD 2 doses in 24 hours PRN (Reason: Allergic Reaction) Rx Instructions: no more than 2 doses in 24 hours acetaminophen 325 mg Tablet 650 mg PO Q4H PRN (Reason: Pain) rosuvastatin 10 mg tablet 10 mg PO DAILY Qty: 90 0RF hydrochlorothiazide 25 mg tablet 25 mg PO DAILY Qty: 90 3RF montelukast 10 mg tablet 10 mg PO DAILY Qty: 90 3RF Discharge Orders: Discharge Order (Routine); Ordered 02/14/25 Ordered By: Kylie Antonio Diet: Low salt diet Activity on Discharge: As tolerated Stand Alone Forms: Patient Portal Discharge page Print Language: Indonesian Care Plan Goals: Follow-up with cigarette machine operator-Dr. Dailey- follow-up advised Follow up with PCP Dr. Dietrich within a week Follow-up with embedded case manager or chemical strength tester , outpatient Rocunest for IV administration to prevent C1 esterase inhibitor deficiency attacks--patient unable to administer as instructed in outpatient settings as the patient lives alone Spoke to the sister at the bedside- Patient now has white bagging of Rocunest for outpatient administration/anytime she comes to the ED Health Concerns: See above Plan of Treatment: See above Assessment: See above
[2025-02-14 12:00] VITALS: BP 157/87; PULSE 80; TEMP 37; O2SAT 96
--- NOTE | 2025-02-14 12:06 | HO.NURTONUR ---
70 year old female presented to ED with concerns of lip and neck swelling. 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 Received home medication dose of C1 esterase inhibitor this morning via IV push as ordered, and had previously received IV steroids/Benedryl. Pt remains with swelling to bottom lip/neck but reports improvement overall. Denies tongue swelling. Denies diff breathing. Pt awake and alert, breathing equal and unlabored. Up to commode with stand by assist. Sister at bedside. Additional doses of medication in pharmacy. Currently on ED stretcher. PIV to left AC.
--- NOTE | 2025-02-14 12:37 | MHC.CM.PN ---
ppt dcd home self care prior to being seen by cm
--- NOTE | 2025-02-14 13:27 | MHC.CM.PN ---
Addendum entered by Margarette Lindsay 02/14/25 14:01: CM SPOKE TO PTS SISTER, BRISEIDA, WHO REPORTS THE PT HAS BEEN RESISTANT TO TAKING THE C1 ESTERASE INHIBITOR MEDICATION, BUT IN NOVEMBER DECIDED TO TRY IT. BRISEIDA SAYS THE PT COULD HAVE IT ADMINISTERED AT HOME, BUT DOES NOT FEEL SAFE TO DO SO. BRISEIDA SAYS THE [facility]OSPITAL PHARM[facility] HAS MET WITH [facility] AND THERE MAY BE A PLAN TO KEEP IT AVAILABLE HERE, SHE HAS A CALL OUT TO PHARMACY TO CONFIRM. PER DISCUSSION, SANDRA SENT A F/U MESSAGE TO ELECTRIC METER TECHNICIAN REQUESTING HE MAKE CONTACT WITH BRISEIDA SHE UNDERSTANDS THE PT IS CLEARED TO DC TODAY AND WILL CALL PT DIRECTLY TO DISCUSS WHAT TIME SHE WILL PICK HER UP. Original Note: PT REPORTS SHE LIVES ALONE AND IS INDEPENDENT WITH PERSONAL CARE SHE HAS A DESKTOP PUBLISHING OPERATOR THAT COMES EVERY OTHER FRIDAY FOR HOUSEWORK PT USES A CANE FOR DME SHE REPORTS SHE HAS A HCP, COPY REQUESTED PCP: JOSE LEMUS OBSERVATION NOTICE DELIVERED DCP: HOME TODAY VIA PRIVATE TRANSPORT
--- NOTE | 2025-02-14 14:14 | PC.NURSE ---
Pt tolerated eating sandwich and drank water. Denies pain or difficulty with swallowing. Remains with lip swelling, improvement overall. Mild tingling reported to lower lip. Sister to attempt to back flow trader appointment for this week. Pt deciding on DC vs staying longer for obs.
[2025-02-14 15:37] VITALS: BP 157/87; PULSE 80; RESP 16; TEMP 37; O2SAT 96
== END 2025-02-14 16:33 | disposition home or self-care (01) ==
LOC: HO.ED 05:17 → HO.EDOVER 05:25 → HO.S3 12:04 → HO.EDOVER 12:45
PROVIDERS: Physician Assistant; Admitting Provider Nurse Practitioner Family; Emergency Provider Student in an Organized Health Care Education/Training Program; PCP Student in an Organized Health Care Education/Training Program; Visit Provider Student in an Organized Health Care Education/Training Program
DX: T78.3XXD Angioneurotic edema, subsequent encounter (principal); J45.909 Unspecified asthma, uncomplicated; E78.5 Hyperlipidemia, unspecified; K21.9 Gastro-esophageal reflux disease without esophagitis; I10 Essential (primary) hypertension; H40.9 Unspecified glaucoma; Z79.51 Long term (current) use of inhaled steroids; Z79.899 Other long term (current) drug therapy
CPT/HCPCS: 36415; 80053; 85025; 96374; 96375; 99221; 99285; J1100; J1200; J2919

== ENCOUNTER → 2025-02-14 05:20 | Outpatient (BNV) | payer MEDICARE, MEDICAID, SELFPAY | PROVIDERS: Admitting Provider Nurse Practitioner Family; Emergency Provider Student in an Organized Health Care Education/Training Program; Visit Provider Nurse Practitioner Family | DX: T78.3XXD Angioneurotic edema, subsequent encounter (principal) | CPT/HCPCS: 99221; 99499 ==